=== PATIENT | female | born 1965 | race Caucasian/White ===

== ENCOUNTER → 2018-01-21 16:04 | Outpatient (CLI) | payer OTHER, SELFPAY ==
[2018-01-21 17:19] LABS: Estradiol 23.2 pg/mL; Follicle Stimulating Hormone 66.5 mIU/mL
== END ==
PROVIDERS: Family Provider Family Medicine; PCP Family Medicine; Visit Provider Obstetrics & Gynecology
DX: Z12.31 Encounter for screening mammogram for malignant neoplasm of breast (principal)
CPT/HCPCS: 82670; 83001

== ENCOUNTER → 2018-01-21 22:29 | Outpatient (CLI) | payer OTHER, SELFPAY ==
[2018-01-24 12:53] LABS: HPV APTIMA, High Risk Positive (Negative)
== END ==
PROVIDERS: Visit Provider Obstetrics & Gynecology
DX: Z01.411 Encounter for gynecological examination (general) (routine) with abnormal findings (principal)
CPT/HCPCS: 88175; G0145

== ENCOUNTER → 2018-05-22 07:56 | Outpatient (CLI) | payer OTHER, SELFPAY ==
[2018-05-22 10:40] LABS: ALB/GLOB Ratio 1.3 RATIO (0.9-2.4); AST(SGOT) 16 U/L (15-37); Alanine Aminotransfer ALT/SGPT 23 U/L (13-56); Alkaline Phosphatase 80 U/L (45-117); Anion Gap 8 (5-15); BUN 8 mg/dL (7-18); BUN/Creat Ratio 12.2 RATIO (10-20); Calcium,Total 8.8 mg/dL (8.5-10.1); Chloride 108 mmol/L (98-107); Cholesterol 163 mg/dL (200); Creatinine, Serum 0.66 mg/dL (0.55-1.02); EST Glomerular Filtration Rate 101 mL/min (>60); Est Glom Filt Rate - Afr Amer 122 mL/min (>60); Glucose 96 mg/dL (74-106); High Density Lipoprotein 48 mg/dL; Potassium 4.3 mmol/L (3.5-5.1); Sodium Level 144 mmol/L (136-145); Triglycerides 59 mg/dL; Very Low Density Lipoprotein 12 mg/dL (5-40)
== END ==
PROVIDERS: Family Provider Family Medicine; PCP Family Medicine; Visit Provider Internal Medicine Endocrinology, Diabetes & Metabolism
DX: E03.8 Other specified hypothyroidism (principal); E78.00 Pure hypercholesterolemia, unspecified
CPT/HCPCS: 36415; 80053; 80061; 84443

== ENCOUNTER → 2019-01-07 16:15 | Outpatient (CLI) | payer OTHER, SELFPAY ==
[2018-01-21 15:01] VITALS: BMI 27.6
[2019-01-07 18:03] LABS: ALB/GLOB Ratio 1.5 RATIO (0.9-2.4); AST(SGOT) 14 U/L (15-37); Alanine Aminotransfer ALT/SGPT 23 U/L (13-56); Albumin, Serum 4.4 g/dL (3.2-5.0); Alkaline Phosphatase 73 U/L (45-117); Anion Gap 10 (5-15); BUN 10 mg/dL (7-18); BUN/Creat Ratio 13.7 RATIO (10-20); Calcium,Total 8.9 mg/dL (8.5-10.1); Chloride 106 mmol/L (98-107); Creatinine, Serum 0.73 mg/dL (0.55-1.02); EST Glomerular Filtration Rate 89 mL/min (>60); Est Glom Filt Rate - Afr Amer 107 mL/min (>60); Globulin 2.9 g/dL (2.2-4.2); Glucose 94 mg/dL (74-106); Potassium 4.2 mmol/L (3.5-5.1); Protein, Total 7.3 g/dL (6.4-8.2); Sodium Level 144 mmol/L (136-145); Thyroid Stim Hormone (TSH) 0.95 uIU/mL (0.358-3.74)
[2019-01-07 18:04] LABS: Vitamin D,25 Hydroxy 49.5 ng/mL (29.95-100.01)
== END ==
PROVIDERS: Family Provider Family Medicine; PCP Family Medicine; Referring Provider Internal Medicine Endocrinology, Diabetes & Metabolism; Visit Provider Internal Medicine Endocrinology, Diabetes & Metabolism
DX: E03.8 Other specified hypothyroidism (principal); E78.00 Pure hypercholesterolemia, unspecified
CPT/HCPCS: 36415; 80053; 82306; 84443

== ENCOUNTER → 2019-02-27 08:33 | Outpatient (CLI) | payer OTHER, SELFPAY ==
[2019-02-27 08:02] VITALS: BMI 27.6
[2019-02-27 09:23] LABS: Follicle Stimulating Hormone 84.6 mIU/mL
[2019-03-05 16:58] LABS: HPV APTIMA, High Risk Negative (Negative)
== END ==
PROVIDERS: Family Provider Family Medicine; PCP Family Medicine; Referring Provider Obstetrics & Gynecology; Visit Provider Obstetrics & Gynecology
DX: Z12.4 Encounter for screening for malignant neoplasm of cervix (principal); Z78.0 Asymptomatic menopausal state
CPT/HCPCS: 36415; 82670; 83001; 87624; 88175; G0145

== ENCOUNTER → 2019-04-08 | Outpatient (CLI) | payer OTHER, SELFPAY ==
[2019-02-27 08:02] VITALS: BMI 27.6
--- NOTE | 2019-04-08 07:39 | BI_ITS ---
MAMMOGRAPHY - BILATERAL SCREENING REASON FOR EXAM: Female, 53 years old. Routine annual screening examination. PERTINENT HISTORY: Aunt with breast cancer. TECHNIQUE: Digital bilateral breast rojas (3D mammographic acquisition) in the CC and MLO projections. 2-D mediolateral oblique (MLO) and craniocaudad (CC) views of both breasts were obtained. CAD: Full Field Digital Mammography with Computer Added Detection was performed. COMPARISON: Comparison is made with prior study dated January 11, 2016 and January 19, 2015. FINDINGS: Breast Composition: The breasts are heterogeneously dense, which may obscure small masses. There are no dominant masses or suspicious calcifications. No other significant abnormalities are identified. There has been no significant change since the prior study. BI/SCREENING MAMM (CAD), BILAT IMPRESSION: Stable bilateral screening mammogram. Yearly follow-up mammogram recommended. (A) ASSESSMENT CATEGORY: BIRADS Category 1: Negative. A letter regarding these results will be sent to the patient by the facility within 30 days. Approximately 10% of breast cancers are not detected by mammography. A normal mammogram should not delay biopsy of a clinically suspicious abnormality. [id number] Electronically Signed: Handy Gonzalez, at 13:36 EDT , Service support ,
== END | disposition home or self-care (01) ==
LOC: OPBI 07:36
PROVIDERS: Family Provider Family Medicine; PCP Family Medicine; Referring Provider Obstetrics & Gynecology; Visit Provider Obstetrics & Gynecology
DX: Z12.31 Encounter for screening mammogram for malignant neoplasm of breast (principal)
CPT/HCPCS: 77063; 77067

== ENCOUNTER → 2019-09-18 13:16 | Outpatient (CLI) | payer OTHER, SELFPAY ==
[2019-04-08 08:17] VITALS: BMI 29.2
[2019-09-18 15:10] LABS: Vitamin D,25 Hydroxy 53.3 ng/mL (29.95-100.01)
[2019-09-18 15:11] LABS: ALB/GLOB Ratio 1.4 RATIO (0.9-2.4); AST(SGOT) 26 U/L (15-37); Alanine Aminotransfer ALT/SGPT 56 U/L (13-56); Albumin, Serum 4.3 g/dL (3.2-5.0); Alkaline Phosphatase 78 U/L (45-117); Anion Gap 6 (5-15); BUN 13 mg/dL (7-18); BUN/Creat Ratio 20.9 RATIO (10-20); Calcium,Total 9.5 mg/dL (8.5-10.1); Chloride 106 mmol/L (98-107); Creatinine, Serum 0.62 mg/dL (0.55-1.02); EST Glomerular Filtration Rate 107 mL/min (>60); Est Glom Filt Rate - Afr Amer 129 mL/min (>60); Globulin 3.1 g/dL (2.2-4.2); Glucose 75 mg/dL (74-106); Protein, Total 7.4 g/dL (6.4-8.2); Sodium Level 142 mmol/L (136-145); Thyroid Stim Hormone (TSH) 0.17 uIU/mL (0.358-3.74)
== END ==
PROVIDERS: Family Provider Family Medicine; PCP Family Medicine; Referring Provider Internal Medicine Endocrinology, Diabetes & Metabolism; Visit Provider Internal Medicine Endocrinology, Diabetes & Metabolism
DX: E03.8 Other specified hypothyroidism (principal); E55.9 Vitamin D deficiency, unspecified
CPT/HCPCS: 36415; 80053; 82306; 84443

== ENCOUNTER → 2019-12-05 07:43 | Outpatient (CLI) | payer OTHER, SELFPAY ==
[2019-04-08 08:17] VITALS: BMI 29.2
[2019-12-05 10:43] LABS: ALB/GLOB Ratio 1.3 RATIO (0.9-2.4); AST(SGOT) 30 U/L (15-37); Alanine Aminotransfer ALT/SGPT 76 U/L (13-56); Albumin, Serum 4.1 g/dL (3.2-5.0); Alkaline Phosphatase 77 U/L (45-117); Anion Gap 3 (5-15); BUN 12 mg/dL (7-18); Calcium,Total 9.6 mg/dL (8.5-10.1); Chloride 107 mmol/L (98-107); Cholesterol 159 mg/dL (200); Creatinine, Serum 0.75 mg/dL (0.55-1.02); EST Glomerular Filtration Rate 86 mL/min (>60); Est Glom Filt Rate - Afr Amer 104 mL/min (>60); Free T3 3.8 pg/mL (2.18-3.98); Globulin 3.1 g/dL (2.2-4.2); Glucose 103 mg/dL (74-106); High Density Lipoprotein 46 mg/dL; Potassium 4.5 mmol/L (3.5-5.1); Protein, Total 7.2 g/dL (6.4-8.2); Sodium Level 142 mmol/L (136-145); T4 Free Direct 1.26 ng/dL (0.76-1.46); Thyroid Stim Hormone (TSH) 0.12 uIU/mL (0.358-3.74); Triglycerides 63 mg/dL; Very Low Density Lipoprotein 13 mg/dL (5-40)
== END ==
LOC: MTLAB 07:46
PROVIDERS: PCP Family Medicine; Referring Provider Internal Medicine Endocrinology, Diabetes & Metabolism; Visit Provider Internal Medicine Endocrinology, Diabetes & Metabolism
DX: E03.8 Other specified hypothyroidism (principal); E78.00 Pure hypercholesterolemia, unspecified
CPT/HCPCS: 36415; 80053; 80061; 84439; 84443; 84481

== ENCOUNTER → 2020-01-15 07:26 | Outpatient (CLI) | payer OTHER, SELFPAY ==
[2019-04-08 08:17] VITALS: BMI 29.2
[2020-01-15 10:26] LABS: Insulin 6.7 mU/L (2.6-37.6)
[2020-01-15 10:29] LABS: ALB/GLOB Ratio 1.3 RATIO (0.9-2.4); AST(SGOT) 26 U/L (15-37); Alanine Aminotransfer ALT/SGPT 56 U/L (13-56); Albumin, Serum 4.1 g/dL (3.2-5.0); Alkaline Phosphatase 67 U/L (45-117); Anion Gap 3 (5-15); BUN 13 mg/dL (7-18); BUN/Creat Ratio 19.6 RATIO (10-20); Calcium,Total 9.7 mg/dL (8.5-10.1); Chloride 107 mmol/L (98-107); Creatinine, Serum 0.66 mg/dL (0.55-1.02); EST Glomerular Filtration Rate 99 mL/min (>60); Est Glom Filt Rate - Afr Amer 119 mL/min (>60); Free T3 4.5 pg/mL (2.18-3.98); Globulin 3.2 g/dL (2.2-4.2); Glucose 95 mg/dL (74-106); Potassium 4.1 mmol/L (3.5-5.1); Protein, Total 7.3 g/dL (6.4-8.2); Sodium Level 142 mmol/L (136-145); T4 Free Direct 1.26 ng/dL (0.76-1.46); Thyroid Stim Hormone (TSH) 0.08 uIU/mL (0.358-3.74)
== END ==
PROVIDERS: PCP Family Medicine; Referring Provider Nurse Practitioner Adult Health; Visit Provider Nurse Practitioner Adult Health
DX: E03.8 Other specified hypothyroidism (principal)
CPT/HCPCS: 36415; 80053; 83525; 84439; 84443; 84481

== ENCOUNTER 2020-04-17 22:32 | Emergency (ER) | payer OTHER, SELFPAY ==
[2019-04-08 08:17] VITALS: BMI 29.2
[2020-04-17 22:32] VITALS: BP 132/75; PULSE 91; RESP 15; TEMP 36.5; O2SAT 95; BMI 30.4
--- NOTE | 2020-04-17 23:54 | ED.VIS.GEN ---
History of Present Illness Chief Complaint: Ear Problem Informant: Patient Onset: Today Narrative: She states a bug flew into her ear. She tried to wash it out with some hydrogen peroxide but is still present. She has not felt it moving now. Past Medical History - Allergies and Home Meds Allergies/Adverse Reactions: Allergies ENVIRONMENTAL Allergy (Mild, Uncoded 04/17/20 22:45) SNEEZE, ITCHY EYES, RUNNY NOSE Primary Care Physician: Mandeep Segura MD [Primary Care Provider] - Surgical History: no surgical history Smoking Status: Former smoker Review of Systems General: Denies: Chills, Fever, Sweats Eyes: Denies: Visual changes - bilaterally, Diplopia ENT: Reports: Left ear pain. Denies: Rhinorrhea, Sore throat Cardiovascular: Denies: Chest pain, Palpitations Respiratory: Denies: Dyspnea, Cough, Dyspnea on exertion Gastrointestinal: Denies: Abdominal pain, Nausea, Vomiting, Diarrhea, Melena, Hematochezia Genitourinary: Denies: Dysuria, Hematuria, Frequency Musculoskeletal: Denies: Back pain, Extremity Pain Skin: Denies: Rash, Wounds Neurological: Denies: Headache, Weakness, Numbness Physical Exam Vital Signs/Narrative: Vital Signs Temp Pulse Resp BP Pulse Ox 04/17/20 22:32 97.7 F L 91 15 132/75 H 95 Inital Vital Signs reviewed: Yes General: Well nourished, Well developed, No Acute Distress Head: Normocephalic, Atraumatic Eyes: Perrl, EOMI ENT: Moist mucous membranes, No rhinorrhea, - - There is a apparently bug next to the left tympanic membrane. Neck: Supple, Nontender Cardiovascular: Regular rate, Regular rhythm, No murmurs Respiratory: No distress, CTA bilaterally, Chest nontender Abdomen: Soft, Nontender, Nondistended, Normal bowel sounds Back: Nontender, Normal Inspection Extremities: Nontender, No edema Skin: Normal color, No rash Neurological: Alert, Oriented x3, Cranial nerves II-XII grossly intact, Normal Strength, Normal Sensation Psychological: Normal affect, Normal Mood Diagnostic/Tx/Re-eval - Medical Decision Making Warm water irrigation resulted in the bug coming close to the opening of the ear canal. Alligator forceps were used to grab the bug. Remaining next to the tympanic membrane is 1 leg. After couple more flushes the leg came out. There is irritation of the tympanic membrane and ear canal but no overt infection. Return if worsening or concerns ED Disposition - Plan for ED Patient: Disposition: Home or Assisted Living Diagnosis: Ear foreign body Instructions: ED EAR CANAL Foreign Body Referrals: Mandeep Segura MD [Primary Care Provider] - As Needed
[2020-04-18 00:11] VITALS: RESP 14
== END 2020-04-18 00:11 | disposition home or self-care (01) ==
LOC: ED 04-18 00:09
PROVIDERS: Emergency Provider Emergency Medicine; PCP Family Medicine
DX: T16.2XXA Foreign body in left ear, initial encounter (principal); X58.XXXA Exposure to other specified factors, initial encounter; Y93.9 Activity, unspecified; Y92.9 Unspecified place or not applicable; Z87.891 Personal history of nicotine dependence
CPT/HCPCS: 99282

== ENCOUNTER → 2020-05-06 08:22 | Outpatient (CLI) | payer OTHER, SELFPAY ==
[2019-04-08 08:17] VITALS: BMI 29.2
[2020-04-17 22:32] VITALS: BMI 30.4
--- NOTE | 2020-05-06 08:23 | BI_ITS ---
MAMMOGRAPHY - BILATERAL SCREENING 3-D TOMOSYNTHESIS REASON FOR EXAM: Female, 54 years old. Routine screening PERTINENT HISTORY: BILAT SCREENING - FAM HX OF MATERNAL AUNT @ AGE 80''S - NO PREV SURG''S. TECHNIQUE: 2-D mammograms and 3-D Tomosynthesis of the breast (s) were performed. CAD was performed. COMPARISON: 04/08/2019 FINDINGS: The breast composition is heterogeneously dense that can obscure small breast masses. Scattered benign calcifications are seen. No dense spiculated masses or suspicious microcalcifications are identified. No architectural distortion is identified. There is no skin thickening or retraction. There has been no significant change since the prior study. BI/SCREEN MAMM (CAD) W/SRIKANTH BILAT IMPRESSION: No mammographic signs of malignancy. Routine yearly mammograms recommended. ASSESSMENT CATEGORY: BIRADS Category 2: Benign. A letter regarding these results will be sent to the patient by the facility within 30 days. FOLLOW UP RECOMMENDATION: Yearly follow up mammogram recommended. (A) Approximately 10% of breast cancers are not detected by mammography. A normal mammogram should not delay biopsy of a clinically suspicious abnormality. Electronically Signed: Pelon Daley MD at 10:19 EDT , Service support ,
[2020-05-15 17:35] LABS: HPV APTIMA, High Risk Negative (Negative)
== END ==
PROVIDERS: PCP Family Medicine; Referring Provider Obstetrics & Gynecology; Visit Provider Obstetrics & Gynecology
DX: R87.810 Cervical high risk human papillomavirus (HPV) DNA test positive (principal); Z12.31 Encounter for screening mammogram for malignant neoplasm of breast
CPT/HCPCS: 77063; 77067; 87624; 88175; G0145

== ENCOUNTER → 2020-05-26 08:10 | Outpatient (CLI) | payer OTHER, SELFPAY ==
[2020-05-06 09:01] VITALS: BMI 30.4
[2020-05-26 11:09] LABS: Insulin 7.1 mU/L (2.6-37.6)
[2020-05-26 11:29] LABS: Albumin, Serum 3.9 g/dL (3.2-5.0); BUN 10 mg/dL (7-18); BUN/Creat Ratio 14.9 RATIO (10-20); Creatinine, Serum 0.67 mg/dL (0.55-1.02); EST Glomerular Filtration Rate 98 mL/min (>60); Est Glom Filt Rate - Afr Amer 118 mL/min (>60); Glucose 101 mg/dL (74-106); Protein, Total 6.9 g/dL (6.4-8.2)
[2020-05-26 11:30] LABS: ALB/GLOB Ratio 1.3 RATIO (0.9-2.4); AST(SGOT) 22 U/L (15-37); Alanine Aminotransfer ALT/SGPT 43 U/L (13-56); Alkaline Phosphatase 79 U/L (45-117); Anion Gap 5 (5-15); Calcium,Total 8.8 mg/dL (8.5-10.1); Chloride 106 mmol/L (98-107); Free T3 2.8 pg/mL (2.18-3.98); Sodium Level 141 mmol/L (136-145); T4 Free Direct 1.13 ng/dL (0.76-1.46); Thyroid Stim Hormone (TSH) 0.64 uIU/mL (0.358-3.74)
== END ==
PROVIDERS: PCP Family Medicine; Referring Provider Internal Medicine Endocrinology, Diabetes & Metabolism; Visit Provider Internal Medicine Endocrinology, Diabetes & Metabolism
DX: E03.8 Other specified hypothyroidism (principal)
CPT/HCPCS: 36415; 80053; 83525; 84439; 84443; 84481

== ENCOUNTER → 2020-11-17 07:36 | Outpatient (CLI) | payer OTHER, SELFPAY ==
[2020-05-06 09:01] VITALS: BMI 30.4
[2020-11-17 10:54] LABS: ALB/GLOB Ratio 1.2 RATIO (0.9-2.4); AST(SGOT) 31 U/L (15-37); Alanine Aminotransfer ALT/SGPT 68 U/L (13-56); Alkaline Phosphatase 68 U/L (45-117); Anion Gap 3 (5-15); BUN 12 mg/dL (7-18); BUN/Creat Ratio 15.9 RATIO (10-20); Calcium,Total 9.2 mg/dL (8.5-10.1); Chloride 109 mmol/L (98-107); Creatinine, Serum 0.76 mg/dL (0.55-1.02); EST Glomerular Filtration Rate 85 mL/min (>60); Est Glom Filt Rate - Afr Amer 103 mL/min (>60); Globulin 3.2 g/dL (2.2-4.2); Glucose 107 mg/dL (74-106); Potassium 4.2 mmol/L (3.5-5.1); Protein, Total 7.2 g/dL (6.4-8.2); Sodium Level 142 mmol/L (136-145); Thyroid Stim Hormone (TSH) 0.29 uIU/mL (0.358-3.74)
== END ==
PROVIDERS: PCP Family Medicine; Referring Provider Internal Medicine Endocrinology, Diabetes & Metabolism; Visit Provider Internal Medicine Endocrinology, Diabetes & Metabolism
DX: E03.8 Other specified hypothyroidism (principal); E83.42 Hypomagnesemia
CPT/HCPCS: 36415; 80053; 83735; 84443

== ENCOUNTER → 2021-01-31 08:02 | Outpatient (CLI) | payer OTHER, SELFPAY ==
[2020-05-06 09:01] VITALS: BMI 30.4
[2021-01-31 11:06] LABS: Thyroid Stim Hormone (TSH) 0.37 uIU/mL (0.358-3.74)
== END ==
PROVIDERS: PCP Family Medicine; Referring Provider Nurse Practitioner Adult Health; Visit Provider Nurse Practitioner Adult Health
DX: E03.8 Other specified hypothyroidism (principal)
CPT/HCPCS: 36415; 84443

== ENCOUNTER → 2021-05-18 07:57 | Outpatient (CLI) | payer OTHER, SELFPAY ==
[2020-05-06 09:01] VITALS: BMI 30.4
[2021-05-12 09:47] VITALS: BMI 30.4
--- NOTE | 2021-05-18 08:00 | BI_ITS ---
MAMMOGRAPHY - BILATERAL SCREENING REASON FOR EXAM: Female, 55 years old. Routine annual screening examination. PERTINENT HISTORY: Aunt with breast cancer. TECHNIQUE: Digital bilateral breast srikanth (3D mammographic acquisition) in the CC and MLO projections. 2-D mediolateral oblique (MLO) and craniocaudad (CC) views of both breasts were obtained. CAD: Full Field Digital Mammography with Computer Added Detection was performed. COMPARISON: Comparison is made with prior study dated 05/06/2020 and 04/08/2019. FINDINGS: Breast Composition: The breasts are heterogeneously dense, which may obscure small masses. There are no dominant masses or suspicious calcifications. No other significant abnormalities are identified. There has been no significant change since the prior study. BI/SCRN MAMM (CAD)W/SRIKANTH BILAT IMPRESSION: Stable bilateral screening mammogram. Yearly follow-up mammogram recommended. (A) ASSESSMENT CATEGORY: BIRADS Category 1: Negative. A letter regarding these results will be sent to the patient by the facility within 30 days. Approximately 10% of breast cancers are not detected by mammography. A normal mammogram should not delay biopsy of a clinically suspicious abnormality. [id number] Electronically Signed: Handy Gonzalez MD at 9:08 EDT , Service support ,
== END ==
PROVIDERS: PCP Family Medicine; Referring Provider Obstetrics & Gynecology; Visit Provider Obstetrics & Gynecology
DX: Z12.31 Encounter for screening mammogram for malignant neoplasm of breast (principal); Z80.3 Family history of malignant neoplasm of breast
CPT/HCPCS: 77063; 77067

== ENCOUNTER → 2021-06-06 11:07 | Outpatient (CLI) | payer OTHER, SELFPAY ==
[2021-05-12 09:47] VITALS: BMI 30.4
[2021-06-06 12:59] LABS: Vitamin D,25 Hydroxy 89.6 ng/mL
[2021-06-06 13:06] LABS: ALB/GLOB Ratio 1.2 RATIO (0.9-2.4); AST(SGOT) 33 U/L (15-37); Alanine Aminotransfer ALT/SGPT 56 U/L (13-56); Alkaline Phosphatase 73 U/L (45-117); Anion Gap 6 (5-15); BUN 10 mg/dL (7-18); BUN/Creat Ratio 13.9 RATIO (10-20); Calcium,Total 9.2 mg/dL (8.5-10.1); Chloride 106 mmol/L (98-107); Creatinine, Serum 0.72 mg/dL (0.55-1.02); EST Glomerular Filtration Rate 89 mL/min (>60); Est Glom Filt Rate - Afr Amer 108 mL/min (>60); Globulin 3.4 g/dL (2.2-4.2); Glucose 108 mg/dL (74-106); Potassium 4.1 mmol/L (3.5-5.1); Protein, Total 7.4 g/dL (6.4-8.2); Sodium Level 142 mmol/L (136-145); Thyroid Stim Hormone (TSH) 0.55 uIU/mL (0.358-3.74)
== END ==
PROVIDERS: PCP Family Medicine; Referring Provider Internal Medicine Endocrinology, Diabetes & Metabolism; Visit Provider Internal Medicine Endocrinology, Diabetes & Metabolism
DX: E03.8 Other specified hypothyroidism (principal); E55.9 Vitamin D deficiency, unspecified
CPT/HCPCS: 36415; 80053; 82306; 84443

== ENCOUNTER → 2021-08-05 10:32 | Outpatient (CLI) | payer OTHER, SELFPAY ==
--- NOTE | 2021-08-05 10:35 | RAD_ITS ---
STUDY: X-RAY - CERVICAL SPINE REASON FOR EXAM: Female, 56 years old. NECK STIFFNESS TECHNIQUE: 7 view(s) of the cervical spine were obtained. COMPARISON: None FINDINGS: Normal anterior atlantoaxial articulation. Normal odontoid process. Normal cervical lordosis. No subluxation on the flexion or extension views to suggest instability. There is multi-level endplate spondylosis. There is multi-level degenerative disc disease with multilevel disc space narrowing. Normal visualized intervertebral neuroforamina. The soft tissue structures are unremarkable. RAD/Cerv Spine Obl/Flex/Ext Comp IMPRESSION: Mild degenerative disc disease of the lower cervical spine. No instability. Electronically Signed: Lemuel Ramirez MD at 17:15 EDT Tel , Service support ,
[2021-08-05 12:13] LABS: Erythrocyte Sedimentation Rate < 1 mm/hr (0-30)
[2021-08-05 12:16] LABS: Absolute Lymphocyte Count 1.29 X10^3/uL (0.83-4.51); Absolute Neutrophil Count 3.2 X10^3/uL (2.0-7.7); Basophil# 0.03 X10^3/uL; Basophil% 0.6 % (0-1); Eosinophil# 0.06 X10^3/uL; Eosinophils% 1.3 % (0-5); Hematocrit 42.4 % (37-47); Hemoglobin 14.2 g/dL (12.0-15.0); Lymphocyte # 1.29 X10^3/ul (0.83-4.51); Lymphocyte % 26.9 % (19-41); Mean Corp Hgb Conc 33.5 g/dL (32-36); Mean Corpuscular Hgb 31.1 pg (27.0-32.0); Mean Corpuscular Volume 92.8 fL (81-99); Mean Platelet Vol. 10.5 fl (6.2-12.0); Monocyte# 0.25 X10^3/uL; Monocyte% 5.2 % (0-10); NRBC Flagged by Analyzer 0 % (0-5); Neutrophil # 3.15 X10^3/uL (2.7-7.7); Neutrophil % 65.8 % (47-70); Platelet Count 243 K/mm3 (150-450); RBC Distribution Width CV 11.9 % (11.6-14.6); Red Blood Count 4.57 M/mm3 (4.2-5.4); White Blood Count 4.8 K/mm3 (4.4-11.0)
[2021-08-05 12:17] LABS: Prothrombin Time (Protime)PT. 12.3 SECONDS (11.7-14.9)
[2021-08-05 12:18] LABS: Partial Thromboplast Time 27.4 Seconds (24.1-36.2)
[2021-08-05 12:42] LABS: Vitamin D,25 Hydroxy 94.5 ng/mL
[2021-08-05 13:01] LABS: ALB/GLOB Ratio 1.2 RATIO (0.9-2.4); AST(SGOT) 25 U/L (15-37); Alanine Aminotransfer ALT/SGPT 50 U/L (13-56); Albumin, Serum 4.3 g/dL (3.2-5.0); Alkaline Phosphatase 72 U/L (45-117); Anion Gap 4 (5-15); BUN 11 mg/dL (7-18); BUN/Creat Ratio 17.5 RATIO (10-20); CRP < 2.90 mg/L (0.0-3.0); Calcium,Total 9.4 mg/dL (8.5-10.1); Chloride 106 mmol/L (98-107); Creatinine, Serum 0.63 mg/dL (0.55-1.02); EST Glomerular Filtration Rate 105 mL/min (>60); Est Glom Filt Rate - Afr Amer 127 mL/min (>60); Globulin 3.7 g/dL (2.2-4.2); Glucose 86 mg/dL (74-106); Potassium 3.6 mmol/L (3.5-5.1); Sodium Level 139 mmol/L (136-145); Thyroid Stim Hormone (TSH) 0.62 uIU/mL (0.358-3.74)
[2021-08-05 16:05] LABS: Microalbumin,Random Urine 10.8 mg/L (NO RANGE EST.); Microalbumin:Creatinine Ratio 24.7 mg/g CRE (<30 mg/g CRE)
[2021-08-08 21:48] LABS: Anti-Nuclear Antibody Test Negative (.)
== END ==
PROVIDERS: PCP Family Medicine; Referring Provider Family Medicine; Visit Provider Family Medicine
DX: M25.50 Pain in unspecified joint (principal); M43.6 Torticollis; E03.9 Hypothyroidism, unspecified; R23.3 Spontaneous ecchymoses
CPT/HCPCS: 36415; 72052; 80053; 82043; 82306; 82570; 84443; 85025; 85610; 85652; 85730; 86038; 86140

== ENCOUNTER → 2021-08-12 15:23 | Outpatient (CLI) | payer OTHER, SELFPAY ==
[2021-08-12 15:30] LABS: Lyme Ab Screen Interpretation REF LAB
[2021-08-12 18:13] LABS: CRP, High Sensitivity Cardiac 2.54 mg/L
[2021-08-17 00:07] LABS: Complement C3 160 mg/dL (82-167)
[2021-08-17 14:30] LABS: CCP IgG Antibodies 7 units (0-19); Lyme Scn Total Ab w/Rflx <0.91 ISR (0.00-0.90)
== END ==
PROVIDERS: PCP Family Medicine; Referring Provider Family Medicine; Visit Provider Family Medicine
DX: R23.8 Other skin changes (principal)
CPT/HCPCS: 36415; 86141; 86160; 86200; 86618

== ENCOUNTER → 2021-08-16 | Outpatient (CLI) | payer OTHER, SELFPAY | END | disposition home or self-care (01) | LOC: LABSPEC 12:08 | PROVIDERS: PCP Family Medicine; Referring Provider Family Medicine; Visit Provider Family Medicine | DX: R23.8 Other skin changes (principal) | CPT/HCPCS: 87506 ==

== ENCOUNTER → 2021-09-06 07:34 | Outpatient (CLI) | payer OTHER, SELFPAY ==
--- NOTE | 2021-09-06 07:36 | US_ITS ---
STUDY: ABDOMINAL ULTRASOUND - LEFT UPPER QUADRANT REASON FOR EXAM: Female, 56 years old. Easy bruising. NT liver. Palpable finding consistent with enlar -- PER [facility]RN AT [facility] ONLY TECHNIQUE: Transabdominal ultrasound was performed with real-time and static duvall scale imaging. TECHNICAL QUALITY: Adequate. COMPARISON: None. FINDINGS: Spleen: Normal size of the spleen. The spleen measures 10.4 cm x 4.1 cm x 4.8 cm. Calcified splenic granulomas. Left Kidney: Normal size of the left kidney. The left kidney measures 11 cm x 5.1 cm x 5.2 cm. Normal renal cortex. The left cortex measures 1.0 cm. There is no demonstrated renal mass or cyst. Minimally dilated left renal calyces. US/Spleen IMPRESSION: The spleen is not enlarged. Calcified splenic granulomas. Electronically Signed: Handy Gonzalez MD at 15:27 EDT , Service support ,
== END ==
PROVIDERS: PCP Family Medicine; Referring Provider Family Medicine; Visit Provider Family Medicine
DX: D73.89 Other diseases of spleen (principal); R23.3 Spontaneous ecchymoses
CPT/HCPCS: 76705

== ENCOUNTER 2021-12-06 15:28 | Outpatient (CLI) | payer BC, SELFPAY ==
[2021-12-06 18:05] LABS: ALB/GLOB Ratio 1.2 RATIO (0.9-2.4); AST(SGOT) 27 U/L (15-37); Alanine Aminotransfer ALT/SGPT 55 U/L (13-56); Albumin, Serum 4.1 g/dL (3.2-5.0); Alkaline Phosphatase 65 U/L (45-117); Anion Gap 4 (5-15); BUN 12 mg/dL (7-18); BUN/Creat Ratio 19.3 RATIO (10-20); Calcium,Total 9.3 mg/dL (8.5-10.1); Chloride 105 mmol/L (98-107); Creatinine, Serum 0.62 mg/dL (0.55-1.02); EST Glomerular Filtration Rate 106 mL/min (>60); Est Glom Filt Rate - Afr Amer 128 mL/min (>60); Free T3 2.9 pg/mL (2.18-3.98); Globulin 3.3 g/dL (2.2-4.2); Glucose 109 mg/dL (74-106); Protein, Total 7.4 g/dL (6.4-8.2); Sodium Level 139 mmol/L (136-145); T4 Free Direct 1.12 ng/dL (0.76-1.46); Thyroid Stim Hormone (TSH) 0.25 uIU/mL (0.358-3.74)
== END 2021-12-06 23:59 | disposition short-term general hospital (02) ==
LOC: MTLAB 15:31
PROVIDERS: PCP Family Medicine; Referring Provider Internal Medicine Endocrinology, Diabetes & Metabolism; Visit Provider Internal Medicine Endocrinology, Diabetes & Metabolism
DX: E03.8 Other specified hypothyroidism (principal)
CPT/HCPCS: 36415; 80053; 84439; 84443; 84481

== ENCOUNTER → 2022-07-25 | Outpatient (CLI) | payer BC, SELFPAY ==
[2022-07-25 10:19] LABS: ALB/GLOB Ratio 1.2 RATIO (0.9-2.4); AST(SGOT) 19 U/L (15-37); Alanine Aminotransfer ALT/SGPT 40 U/L (13-56); Albumin, Serum 3.7 g/dL (3.2-5.0); Alkaline Phosphatase 57 U/L (45-117); Anion Gap 8 (5-15); BUN 10 mg/dL (7-18); BUN/Creat Ratio 14.6 RATIO (10-20); Calcium,Total 9.2 mg/dL (8.5-10.1); Chloride 107 mmol/L (98-107); Cholesterol 151 mg/dL (200); Creatinine, Serum 0.68 mg/dL (0.55-1.02); EST Glomerular Filtration Rate 95 mL/min (>60); Est Glom Filt Rate - Afr Amer 114 mL/min (>60); Free T3 3.2 pg/mL (2.18-3.98); Globulin 3.2 g/dL (2.2-4.2); Glucose 111 mg/dL (74-106); High Density Lipoprotein 58 mg/dL; Potassium 3.6 mmol/L (3.5-5.1); Protein, Total 6.9 g/dL (6.4-8.2); Sodium Level 142 mmol/L (136-145); T4 Free Direct 1.19 ng/dL (0.76-1.46); Thyroid Stim Hormone (TSH) 0.46 uIU/mL (0.358-3.74); Triglycerides 61 mg/dL; Very Low Density Lipoprotein 12 mg/dL (5-40)
== END | disposition home or self-care (01) ==
LOC: MTLAB 07:20
PROVIDERS: PCP Family Medicine; Referring Provider Internal Medicine Endocrinology, Diabetes & Metabolism; Visit Provider Internal Medicine Endocrinology, Diabetes & Metabolism
DX: E03.8 Other specified hypothyroidism (principal); E78.2 Mixed hyperlipidemia; E55.9 Vitamin D deficiency, unspecified
CPT/HCPCS: 36415; 80053; 80061; 84439; 84443; 84481

== ENCOUNTER → 2023-02-23 | Outpatient (CLI) | payer BC, SELFPAY ==
[2023-02-23 11:37] LABS: ALB/GLOB Ratio 1.3 RATIO (0.9-2.4); AST(SGOT) 23 U/L (15-37); Alanine Aminotransfer ALT/SGPT 46 U/L (13-56); Albumin, Serum 3.8 g/dL (3.2-5.0); Alkaline Phosphatase 61 U/L (45-117); Anion Gap 4 (5-15); BUN 11 mg/dL (7-18); BUN/Creat Ratio 13.5 RATIO (10-20); Calcium,Total 9.1 mg/dL (8.5-10.1); Chloride 110 mmol/L (98-107); Creatinine, Serum 0.81 mg/dL (0.55-1.02); EST Glomerular Filtration Rate 77 mL/min (>60); Est Glom Filt Rate - Afr Amer 93 mL/min (>60); Glucose 127 mg/dL (74-106); Potassium 4.3 mmol/L (3.5-5.1); Protein, Total 6.8 g/dL (6.4-8.2); Sodium Level 141 mmol/L (136-145); Thyroid Stim Hormone (TSH) 1.32 uIU/mL (0.358-3.74)
== END | disposition home or self-care (01) ==
PROVIDERS: PCP Family Medicine; Referring Provider Internal Medicine Endocrinology, Diabetes & Metabolism; Visit Provider Internal Medicine Endocrinology, Diabetes & Metabolism
DX: E03.8 Other specified hypothyroidism (principal)
CPT/HCPCS: 36415; 80053; 84443

== ENCOUNTER → 2023-05-25 | Outpatient (CLI) | payer BC, SELFPAY ==
--- NOTE | 2023-05-25 09:45 | RAD_ITS ---
STUDY: X-RAY - CERVICAL SPINE REASON FOR EXAM: Female, 57 years old. CERVICAL SPRAIN TECHNIQUE: 6 view(s) of the cervical spine were obtained including oblique views.. COMPARISON: None FINDINGS: Normal anterior atlantoaxial articulation. Normal odontoid process. There is straightening of the normal cervical lordosis. Anterior spondylosis at the C5-C6 and C6-C7 levels. This space narrowing at the C5-C6 and C6-C7 levels. Normal visualized intervertebral neuroforamina. The soft tissue structures are unremarkable. RAD/Cerv Spine 4 or 5 Views IMPRESSION: Spondylosis and disc space narrowing at the C5-C6 and C6-C7 levels. Electronically Signed: Handy Gonzalez MD at 14:34 EDT ,
== END | disposition home or self-care (01) ==
LOC: RAD 09:32
PROVIDERS: PCP Family Medicine; Referring Provider Chiropractor; Visit Provider Chiropractor
DX: S13.4XXA Sprain of ligaments of cervical spine, initial encounter (principal); X58.XXXA Exposure to other specified factors, initial encounter
CPT/HCPCS: 72050

== ENCOUNTER → 2023-08-31 | Outpatient (CLI) | payer BC, SELFPAY ==
--- NOTE | 2023-08-31 07:33 | BI_ITS ---
MAMMOGRAPHY - BILATERAL SCREENING REASON FOR EXAM: Female, 58 years old. Routine annual screening examination. PERTINENT HISTORY: Aunt with breast cancer. TECHNIQUE: Digital bilateral breast srikanth (3D mammographic acquisition) in the CC and MLO projections. 2-D mediolateral oblique (MLO) and craniocaudad (CC) views of both breasts were obtained. CAD: Full Field Digital Mammography with Computer Added Detection was performed. COMPARISON: Comparison is made with prior study dated May 18, 2021 and May 06, 2020. FINDINGS: Breast Composition: The breasts are heterogeneously dense, which may obscure small masses. There are no dominant masses or suspicious calcifications. Stable benign-appearing bilateral axillary lymph nodes. No other significant abnormalities are identified. There has been no significant change since the prior study. BI/SCRN MAMM (CAD)W/SRIKANTH BILAT IMPRESSION: Stable bilateral screening mammogram. Yearly follow-up mammogram recommended. (A) ASSESSMENT CATEGORY: BIRADS Category 2: Benign. A letter regarding these results will be sent to the patient by the facility within 30 days. Approximately 10% of breast cancers are not detected by mammography. A normal mammogram should not delay biopsy of a clinically suspicious abnormality. [id number] Electronically Signed: Handy Gonzalez MD at 10:41 EDT ,
== END | disposition home or self-care (01) ==
LOC: OPBI 07:32
PROVIDERS: PCP Family Medicine; Referring Provider Obstetrics & Gynecology; Visit Provider Obstetrics & Gynecology
DX: Z12.31 Encounter for screening mammogram for malignant neoplasm of breast (principal)
CPT/HCPCS: 77063; 77067

== ENCOUNTER → 2023-09-13 | Outpatient (CLI) | payer BC, SELFPAY ==
[2023-09-19 08:11] LABS: HPV APTIMA, High Risk Negative (Negative)
== END | disposition home or self-care (01) ==
LOC: LABSPEC 11:37
PROVIDERS: PCP Family Medicine; Visit Provider Advanced Practice Midwife
DX: Z12.4 Encounter for screening for malignant neoplasm of cervix (principal)
CPT/HCPCS: 87624; 88175; G0145

== ENCOUNTER → 2023-10-15 | Outpatient (CLI) | payer BC, SELFPAY ==
[2023-10-15 11:45] LABS: Vitamin D,25 Hydroxy 82.8 ng/mL
[2023-10-15 12:15] LABS: ALB/GLOB Ratio 1.3 RATIO (0.9-2.4); AST(SGOT) 26 U/L (15-37); Alanine Aminotransfer ALT/SGPT 47 U/L (13-56); Albumin, Serum 3.7 g/dL (3.2-5.0); Alkaline Phosphatase 56 U/L (45-117); Anion Gap 6 (5-15); BUN 6 mg/dL (7-18); BUN/Creat Ratio 9.1 RATIO (10-20); Calcium,Total 9.1 mg/dL (8.5-10.1); Chloride 110 mmol/L (98-107); Cholesterol 147 mg/dL (200); Creatinine, Serum 0.66 mg/dL (0.55-1.02); EST Glomerular Filtration Rate 99 mL/min (>60); Est Glom Filt Rate - Afr Amer 119 mL/min (>60); Globulin 2.8 g/dL (2.2-4.2); Glucose 109 mg/dL (74-106); High Density Lipoprotein 52 mg/dL; Magnesium 2.2 mg/dL (1.6-2.6); Protein, Total 6.5 g/dL (6.4-8.2); Sodium Level 143 mmol/L (136-145); Thyroid Stim Hormone (TSH) 0.25 uIU/mL (0.358-3.74); Triglycerides 126 mg/dL; Very Low Density Lipoprotein 25 mg/dL (5-40)
== END | disposition home or self-care (01) ==
LOC: MTLAB 08:04
PROVIDERS: PCP Family Medicine; Referring Provider Internal Medicine Endocrinology, Diabetes & Metabolism; Visit Provider Internal Medicine Endocrinology, Diabetes & Metabolism
DX: E03.9 Hypothyroidism, unspecified (principal); E78.2 Mixed hyperlipidemia; E55.9 Vitamin D deficiency, unspecified
CPT/HCPCS: 36415; 80053; 80061; 82306; 83735; 84443

== ENCOUNTER → 2023-11-07 | Outpatient (CLI) | payer BC, SELFPAY ==
[2023-11-07 16:43] LABS: Absolute Lymphocyte Count 1.73 X10^3/uL (0.83-4.51); Absolute Neutrophil Count 3.4 X10^3/uL (2.0-7.7); Basophil# 0.06 X10^3/uL; Basophil% 1.1 % (0-1); Eosinophil# 0.08 X10^3/uL; Eosinophils% 1.4 % (0-5); Hematocrit 39.3 % (37-47); Hemoglobin 13.2 g/dL (12.0-15.0); Lymphocyte # 1.73 X10^3/ul (0.83-4.51); Lymphocyte % 30.5 % (19-41); Mean Corp Hgb Conc 33.6 g/dL (32-36); Mean Corpuscular Hgb 30.6 pg (27.0-32.0); Mean Corpuscular Volume 91.2 fL (81-99); Mean Platelet Vol. 10.6 fl (6.2-12.0); Monocyte# 0.43 X10^3/uL; Monocyte% 7.6 % (0-10); NRBC Flagged by Analyzer 0 % (0-5); Neutrophil # 3.36 X10^3/uL (2.7-7.7); Platelet Count 222 K/mm3 (150-450); RBC Distribution Width SD 40.2 fl (35.1-43.9); Red Blood Count 4.31 M/mm3 (4.2-5.4); White Blood Count 5.7 K/mm3 (4.4-11.0)
== END | disposition home or self-care (01) ==
LOC: BIMLAB 15:08
PROVIDERS: PCP Internal Medicine; Referring Provider Internal Medicine; Visit Provider Internal Medicine
DX: Z00.00 Encounter for general adult medical examination without abnormal findings (principal)
CPT/HCPCS: 36415; 85025

== ENCOUNTER → 2024-04-15 | Outpatient (CLI) | payer BC, SELFPAY ==
[2024-04-15 12:38] LABS: Vitamin D,25 Hydroxy 82.6 ng/mL
[2024-04-15 12:51] LABS: PTHIN 58.6 pg/mL (18.4-80.1)
[2024-04-15 13:27] LABS: ALB/GLOB Ratio 1.3 RATIO (0.9-2.4); AST(SGOT) 40 U/L (15-37); Alanine Aminotransfer ALT/SGPT 65 U/L (13-56); Albumin, Serum 3.9 g/dL (3.2-5.0); Alkaline Phosphatase 55 U/L (45-117); Anion Gap 6 (5-15); BUN 14 mg/dL (7-18); BUN/Creat Ratio 19.8 RATIO (10-20); Calcium,Total 9.2 mg/dL (8.5-10.1); Chloride 110 mmol/L (98-107); Creatinine, Serum 0.71 mg/dL (0.55-1.02); EST Glomerular Filtration Rate 91 mL/min (>60); Est Glom Filt Rate - Afr Amer 110 mL/min (>60); Glucose 106 mg/dL (74-106); Potassium 4.2 mmol/L (3.5-5.1); Protein, Total 6.9 g/dL (6.4-8.2); Sodium Level 142 mmol/L (136-145)
[2024-04-16 09:15] LABS: Thyroid Stim Hormone (TSH) 1.44 uIU/mL (0.358-3.74)
== END | disposition home or self-care (01) ==
LOC: BIMLAB 09:44
PROVIDERS: PCP Internal Medicine; Referring Provider Internal Medicine; Visit Provider Internal Medicine
DX: E03.8 Other specified hypothyroidism (principal); M85.89 Other specified disorders of bone density and structure, multiple sites; E55.9 Vitamin D deficiency, unspecified
CPT/HCPCS: 36415; 80053; 82306; 83970; 84443

== ENCOUNTER → 2024-06-04 | Outpatient (CLI) | payer BC, SELFPAY ==
[2024-06-04 12:49] LABS: ALB/GLOB Ratio 1.3 RATIO (0.9-2.4); AST(SGOT) 33 U/L (15-37); Alanine Aminotransfer ALT/SGPT 55 U/L (13-56); Albumin, Serum 3.9 g/dL (3.2-5.0); Alkaline Phosphatase 51 U/L (45-117); Anion Gap 7 (5-15); BUN 7 mg/dL (7-18); BUN/Creat Ratio 10.3 RATIO (10-20); Calcium,Total 9.4 mg/dL (8.5-10.1); Chloride 107 mmol/L (98-107); Creatinine, Serum 0.68 mg/dL (0.55-1.02); EST Glomerular Filtration Rate 95 mL/min (>60); Est Glom Filt Rate - Afr Amer 115 mL/min (>60); Globulin 2.9 g/dL (2.2-4.2); Glucose 111 mg/dL (74-106); Potassium 3.9 mmol/L (3.5-5.1); Protein, Total 6.8 g/dL (6.4-8.2); Sodium Level 141 mmol/L (136-145)
== END | disposition home or self-care (01) ==
LOC: BIMLAB 08:57
PROVIDERS: PCP Internal Medicine; Referring Provider Internal Medicine; Visit Provider Internal Medicine
DX: M85.80 Other specified disorders of bone density and structure, unspecified site (principal)
CPT/HCPCS: 36415; 80053

== ENCOUNTER → 2024-09-02 | Outpatient (CLI) | payer BC, SELFPAY ==
--- NOTE | 2024-09-02 08:09 | BI_ITS ---
MAMMOGRAPHY - BILATERAL SCREENING REASON FOR EXAM: Female, 59 years old. Routine annual screening examination. PERTINENT HISTORY: Aunt with breast cancer. TECHNIQUE: Digital bilateral breast srikanth (3D mammographic acquisition) in the CC and MLO projections. 2-D mediolateral oblique (MLO) and craniocaudad (CC) views of both breasts were obtained. CAD: Full Field Digital Mammography with Computer Added Detection was performed. COMPARISON: Comparison is made with prior study August 31, 2023 and May 18, 2021. FINDINGS: Breast Composition: The breasts are heterogeneously dense, which may obscure small masses. There are no dominant masses or suspicious calcifications. Stable bilateral fat containing axillary lymph nodes. No other significant abnormalities are identified. There has been no significant change since the prior study. BI/SCRN MAMM (CAD)W/SRIKANTH BILAT IMPRESSION: Stable bilateral screening mammogram. Yearly follow-up mammogram recommended. (A) ASSESSMENT CATEGORY: BIRADS Category 2: Benign. A letter regarding these results will be sent to the patient by the facility within 30 days. Approximately 10% of breast cancers are not detected by mammography. A normal mammogram should not delay biopsy of a clinically suspicious abnormality. [id number] Electronically Signed: Handy Gonzalez MD at 8:52 EDT ,
== END | disposition home or self-care (01) ==
LOC: OPBI 08:09
PROVIDERS: PCP Internal Medicine; Referring Provider Obstetrics & Gynecology; Visit Provider Obstetrics & Gynecology
DX: Z12.31 Encounter for screening mammogram for malignant neoplasm of breast (principal)
CPT/HCPCS: 77063; 77067

== ENCOUNTER → 2024-10-06 | Outpatient (CLI) | payer BC, SELFPAY ==
[2024-10-06 12:31] LABS: PTHIN 25.8 pg/mL (18.4-80.1)
[2024-10-06 12:36] LABS: Vitamin D,25 Hydroxy 81.1 ng/mL
[2024-10-06 13:22] LABS: ALB/GLOB Ratio 1.4 RATIO (0.9-2.4); AST(SGOT) 32 U/L (15-37); Alanine Aminotransfer ALT/SGPT 51 U/L (13-56); Albumin, Serum 3.8 g/dL (3.2-5.0); Alkaline Phosphatase 53 U/L (45-117); Anion Gap 5 (5-15); BUN 11 mg/dL (7-18); BUN/Creat Ratio 15.4 RATIO (10-20); Calcium,Total 9.2 mg/dL (8.5-10.1); Chloride 110 mmol/L (98-107); Creatinine, Serum 0.71 mg/dL (0.55-1.02); EST Glomerular Filtration Rate 89 mL/min (>60); Est Glom Filt Rate - Afr Amer 108 mL/min (>60); Globulin 2.8 g/dL (2.2-4.2); Glucose 110 mg/dL (74-106); Potassium 4.2 mmol/L (3.5-5.1); Protein, Total 6.6 g/dL (6.4-8.2); Sodium Level 142 mmol/L (136-145)
== END | disposition home or self-care (01) ==
LOC: BIMLAB 08:05
PROVIDERS: PCP Internal Medicine; Referring Provider Internal Medicine Endocrinology, Diabetes & Metabolism; Visit Provider Internal Medicine Endocrinology, Diabetes & Metabolism
DX: E03.8 Other specified hypothyroidism (principal); E55.9 Vitamin D deficiency, unspecified; M85.89 Other specified disorders of bone density and structure, multiple sites
CPT/HCPCS: 36415; 80053; 82306; 83970; 84443

== ENCOUNTER → 2025-03-25 | Outpatient (CLI) | payer BC, SELFPAY ==
[2025-03-25 12:21] LABS: Absolute Lymphocyte Count 1.44 X10^3/uL (0.83-4.51); Absolute Neutrophil Count 2.5 X10^3/uL (2.0-7.7); Basophil# 0.03 X10^3/uL; Basophil% 0.7 % (0-1); Eosinophil# 0.09 X10^3/uL; Hematocrit 37.7 % (37-47); Hemoglobin 13.2 g/dL (12.0-15.0); Lymphocyte # 1.44 X10^3/ul (0.83-4.51); Lymphocyte % 32.7 % (19-41); Mean Corpuscular Hgb 31.5 pg (27.0-32.0); Mean Platelet Vol. 11.1 fl (6.2-12.0); Monocyte# 0.31 X10^3/uL; NRBC Flagged by Analyzer 0 % (0-5); Neutrophil # 2.52 X10^3/uL (2.7-7.7); Neutrophil % 57.4 % (47-70); Platelet Count 194 K/mm3 (150-450); RBC Distribution Width CV 11.9 % (11.6-14.6); RBC Distribution Width SD 38.9 fl (35.1-43.9); Red Blood Count 4.19 M/mm3 (4.2-5.4); White Blood Count 4.4 K/mm3 (4.4-11.0)
[2025-03-25 13:01] LABS: ALB/GLOB Ratio 1.9 RATIO (0.9-2.4); AST(SGOT) 42 U/L (<=31); Alanine Aminotransfer ALT/SGPT 52 U/L (<=34); Albumin, Serum 4.4 g/dL (3.5-5.0); Alkaline Phosphatase 53 U/L (35-104); Anion Gap 11 (5-15); BUN 10 mg/dL (4-19); BUN/Creat Ratio 14.6 RATIO (10-20); Calcium,Total 9.7 mg/dL (7.6-11.0); Carbon Dioxide 24.7 mmol/L (21.0-32.0); Chloride 106 mmol/L (98-108); Cholesterol 174 mg/dL (<=200); Creatinine, Serum 0.67 mg/dL (0.70-1.20); EST Glomerular Filtration Rate 101 (>60); Globulin 2.3 g/dL (2.2-4.2); Glucose 114 mg/dL (70-99); High Density Lipoprotein 47 mg/dL; Low Density Lipoprotein Calc. 107 mg/dL; Potassium 4.1 mmol/L (3.3-5.1); Protein, Total 6.7 g/dL (5.9-8.4); Sodium Level 142 mmol/L (133-145); Total Bilirubin 0.51 mg/dL (0.00-1.30); Triglycerides 100 mg/dL; Very Low Density Lipoprotein 20 mg/dL (5-40); cholesterol:hdl ratio screen 3.69
== END | disposition home or self-care (01) ==
LOC: BIMLAB 08:42
PROVIDERS: PCP Internal Medicine; Referring Provider Internal Medicine; Visit Provider Internal Medicine
DX: Z00.00 Encounter for general adult medical examination without abnormal findings (principal)
CPT/HCPCS: 36415; 80053; 80061; 85025

== ENCOUNTER → 2025-04-13 | Outpatient (CLI) | payer BC, SELFPAY ==
[2025-04-13 09:57] LABS: ALB/GLOB Ratio 2.1 RATIO (0.9-2.4); AST(SGOT) 43 U/L (<=31); Alanine Aminotransfer ALT/SGPT 55 U/L (<=34); Albumin, Serum 4.6 g/dL (3.5-5.0); Alkaline Phosphatase 51 U/L (35-104); Anion Gap 11 (5-15); BUN 13 mg/dL (4-19); BUN/Creat Ratio 18.4 RATIO (10-20); Calcium,Total 9.9 mg/dL (7.6-11.0); Carbon Dioxide 25.5 mmol/L (21.0-32.0); Chloride 105 mmol/L (98-108); EST Glomerular Filtration Rate 100 (>60); Globulin 2.2 g/dL (2.2-4.2); Glucose 113 mg/dL (70-99); Potassium 4.3 mmol/L (3.3-5.1); Protein, Total 6.8 g/dL (5.9-8.4); Sodium Level 141 mmol/L (133-145); Total Bilirubin 0.43 mg/dL (0.00-1.30)
== END | disposition home or self-care (01) ==
LOC: BIMLAB 08:23
PROVIDERS: PCP Internal Medicine; Referring Provider Internal Medicine Endocrinology, Diabetes & Metabolism; Visit Provider Internal Medicine Endocrinology, Diabetes & Metabolism
DX: E03.8 Other specified hypothyroidism (principal); E83.42 Hypomagnesemia
CPT/HCPCS: 36415; 80053; 83735; 84443

== ENCOUNTER → 2025-04-28 | Outpatient (CLI) | payer BC, SELFPAY ==
--- NOTE | 2025-04-28 09:03 | US_ITS ---
PROCEDURE: ABD LIMITED W/ ELASTOGRAPHY REASON FOR EXAM: TRANSAMINITIS COMPARISON: None. TECHNIQUE: Right upper quadrant abdominal ultrasound. Katie ElastQ Imaging shear wave elastography for non-invasive assessment of liver tissue stiffness. Katie EPIQ Elite. FINDINGS: LIVER: Size: Unremarkable Length: 16.1 cm Echotexture: Diffusely echogenic suggesting fatty infiltration Contour: Normal Lesions: There is a 1.4 cm x 1.4 cm x 0.7 cm cyst in the anterior aspect of the right lobe of the liver. Elastography: EQI Med: 9.4 kPa EQI Med Butch: 1.76 m/s IQR/Med: 18.5 %* GALLBLADDER: Normal COMMON BILE DUCT: Normal . PANCREAS: Normal Visualized portions of the right kidney are unremarkable. No right upper quadrant ascites. US/ABD Limited w/ Elastography IMPRESSION: MODERATE TO SEVERE HEPATIC FIBROSIS Fatty infiltration of the liver. Small cyst in the right lobe of the liver. Reference Values: SRU <1.37 m/s (5.7kPa): No to mild fibrosis 1.37 m/s - 2.2 m/s: Moderate to severe fibrosis >2.2 m/s (15kPa): Significant fibrosis / cirrhosis METAVIR Score F2 or higher: 1.34 m/s (5.7kPa) F3 or higher: 1.55 m/s (7.3kPa) F4: 1.80 m/s (10kPa) * If the IQR/Med is >30%, the variance in the measurements is a large and the a ccuracy of the measurement may be in question. Reading Location: [place] [id number]
== END | disposition home or self-care (01) ==
PROVIDERS: PCP Internal Medicine; Referring Provider Internal Medicine; Visit Provider Internal Medicine
DX: R74.01 Elevation of levels of liver transaminase levels (principal)
CPT/HCPCS: 76705; 76981

== ENCOUNTER 2025-08-06 06:13 | Day surgery (SDC) | payer BC, SELFPAY ==
[2025-08-06] VITALS (9 sets, daily range): BP systolic 90–140; BP diastolic 58–67; PULSE 58–69; RESP 16; TEMP 36.2–36.5; O2SAT 94–98; BMI 29.4
--- OUTSIDE RECORDS SUMMARY | 2025-08-06 06:28 | XMS RPT_ITS | CCD ---
Author Organization [facility] Care Team Providers Care Cupola Patcher Name Role Phone Dr. Mandeep Segura Primary Care Provider Dr. Mandeep Hampton Attending Provider Dr. Mandeep Segura Primary Care Provider [phone] Dr. Jas Willoughby Attending Provider [phone] Dr. Mandeep Segura Primary Care Provider Dr. Jas Willoughby Attending Provider [phone] Dr. Mandeep Segura Referring Provider [phone] DONNA Herndon Attending Provider Dr. Erma Quiros Attending Provider Chula SANTO, Dr. Ritchie Primary Care Provider Chula SANTO, Dr. Ritchie Attending Provider Dr. Eram Quiros MD Referring Provider Dr. Bobby Torres DO Attending Provider Dr. Bobby Torres DO Referring Provider León SANTO, Dr. Contreras Attending Provider Oleghe, Efewongbe Primary Care Unavailable Friend, Adrian Attending Unavailable Oleghe, Efewongbe Referring Unavailable Oleghe, Efewongbe Primary Care Unavailable Referred, Self Attending Unavailable Bobby Torres Referring Unavailable Oleghe, Efewongbe Primary Care Unavailable Bobby Torres Attending Unavailable Oleghe, Efewongbe Referring Unavailable Oleghe, Efewongbe Primary Care Unavailable Oleghe, Efewongbe Attending Unavailable Oleghe, Efewongbe Referring Unavailable Oleghe, Efewongbe Primary Care Unavailable Oleghe, Efewongbe Attending Unavailable Oleghe, Efewongbe Referring Unavailable Oleghe, Efewongbe Primary Care Unavailable Oleghe, Efewongbe Attending Unavailable Oleghe, Efewongbe Referring Unavailable Ben Traore Attending Unavailable Oleghe, Efewongbe Primary Care Unavailable Bobby Torres Referring Unavailable Oleghe, Efewongbe Primary Care Unavailable Bobby Torres Attending Unavailable Claudia Spear Attending Unavailable Claudia Spear Referring Unavailable Olejonahe, Efewongbe Primary Care Unavailable Allergies Allergy Classification Reported Allergen(s) Allergy Type Date of Onset Reaction(s) Facility (10 sources) Environmental Allergies: Uncoded; Translations: [Environmental Allergies: Uncoded] Allergy to substance 2 SNEEZE, ITCHY EYES, RUNNY NOSE [facility] Medications Current Medications Medication Drug Class(es) Dates Sig (Normalized) Sig (Original) bazedoxifene 20 mg / estrogens, conjugated (prison) 0.45 mg oral tablet (13 sources) Estrogen Start: 12-03-2023 End: 11-06-2024 take 1 tablet by mouth once daily Conj Estrogens-Bazedox ifene (Duavee) 0.45-20 mg tablet Active 1 {tbl} PO DAILY 90 3 November 06, 2024 10:26am Start: 11-01-2023 End: 11-07-2023 take 1 tablet by mouth once daily Conj Estrogens-Bazedoxifene (Duavee) 0.45-20 mg tablet Discontinued 1 {tbl} PO DAILY 30 0 November 01, 2023 1:00am November 07, 2023 3:23pm Dyspareunia biotin 1 mg oral capsule (10 sources) Start: 05-06-2020 take 1 capsule by mouth once daily Biotin 1 mg capsule Active 1 mg PO DAILY May 06, 2020 12:00am calcium citrate 1190 mg / cholecalciferol 0.005 mg oral tablet (14 sources) Vitamin D Start: 03-25-2025 Calcium Citrate-Vitamin D3 (Citracal Regular) 250 mg-5 mcg (200 unit) tablet Active 2 {tbl} PO BEDTIME March 25, 2025 8:14am Start: 05-12-2021 End: 03-25-2025 Calcium Citrate-Vitamin D3 ( Citracal Regular) 250 mg-5 mcg (200 unit) tablet Discontinued 1 {tbl} PO THREE TIMES A DAY May 12, 2021 12:00am March 25, 2025 8:15am cetirizine hydrochloride 10 mg oral capsule (10 sources) Histamine-1 Receptor Antagonist Start: 01-16-2018 take 1 capsule by mouth once daily Cetirizine (Zyrtec) 10 mg capsule Active 10 mg PO daily January 16, 2018 1:00am cholecalciferol 0.05 mg oral capsule (10 sources) Vitamin D Start: 05-06-2020 take 1 capsule by mouth once daily Cholecalciferol (Vitamin D3) 50 mcg (2,000 unit) capsule Active 50 ug PO DAILY May 06, 2020 12:00am clobetasol propionate 0.0005 mg/mg topical ointment (20 sources) Corticosteroid Start: 12-03-2023 Clobetasol 0.05 % ointment Active 1 NMA TOPICAL AT BEDTIME 60 3 December 03, 2023 11:39am apply thin layer; massage gently into affected area nightly 1-2x weekly Start: 05-12-2021 End: 11-07-2023 Clobetasol 0.05 % ointment D iscontinued 1 NMA TOPICAL AT BEDTIME 60 3 August 17, 2023 3:37pm September 13, 2023 1:02pm apply thin layer; massage gently into affected area nightly x 6 weeks then 1-2x weekly Start: 05-06-2020 End: 05-12-2021 Clobetasol 0.05 % ointment D iscontinued 1 NMA TOPICAL TWICE A DAY 45 14 2 May 06, 2020 12:00am May 12, 2021 9:55am Apply finger tip amount to vaginal area nightly for 2 weeks , daily for 2 weeks then as needed. Start: 05-06-2020 End: 05-12-2021 Clobetasol Discontinued 1 AP PLIC TOPICAL TWICE A DAY 45 14 May 05, 2020 11:00pm May 12, 2021 8:55am Apply finger tip amount to vaginal area nightly for 2 weeks , daily for 2 weeks then as needed. levothyroxine sodium 0.088 mg oral tablet (20 sources) l-Thyroxine Start: 03-25-2025 Levothyroxine 88 mcg tablet Active 88 ug PO DAILY March 25, 2025 8:15am 44mcg daily on Sunday only Start: 04-17-2020 End: 03-25-2025 take 1 tablet by mouth once daily Levothyroxine 88 MCG tablet Discontinued 88 ug PO DAILY April 17, 2020 12:00am March 25, 2025 8:15am Start: 11-28-2013 End: 01-16-2018 take 1 tablet by mouth once daily Levothyroxine 75 MCG tablet Discontinued 75 ug PO DAILY November 28, 2013 1:00am January 16, 2018 12:33pm Multivitamin preparation (6 sources) Start: 05-06-2020 take 1 tablet by mouth once daily Multivitamin Active 1 TABLET PO DAILY May 05, 2020 11:00pm Start: 05-06-2020 take 1 tablet by stephy th once daily Multivitamin Active 1 TABLET PO DAILY May 06, 2020 12:00am Multivitamin tablet (4 sources) Start: 05-06-2020 Multivitamin tablet Active 1 {tbl} PO DAILY May 06, 2020 12:00am omeprazole 20 mg disintegrating oral tablet (10 sources) Proton Pump Inhibitor Start: 04-17-2020 take 1 tablet by mouth once daily Omeprazole 20 MG tablet,disintegrat , delay rel Active 20 mg PO DAILY April 17, 2020 12:00am Completed/Discontinued Medications Medication Drug Class(es) Dates Sig (Normalized) Sig (Original) buPROPion hydrochloride 75 mg oral tablet (10 sources) Aminoketone Start: 11-28-2013 End: 01-16-2018 take 1 tablet by mouth once daily Bupropion Hcl 75 MG tablet Discontinued 75 mg PO DAILY November 28, 2013 1:00am January 16, 2018 12:33pm calcium ascorbate 500 mg oral tablet (10 sources) Start: 05-06-2020 End: 03-25-2025 take 1 tablet by mouth once daily Ascorbate Calcium (Vitamin C) 500 mg tablet Discontinued 500 mg PO DAILY May 06, 2020 12:00am March 25, 2025 8:14am esomeprazole 20 mg delayed release oral capsule (10 sources) Proton Pump Inhibitor Start: 11-28-2013 End: 01-16-2018 take 1 capsule by mouth once daily Esomeprazole Magnesium 20 MG capsule Discontinued 20 mg PO DAILY November 28, 2013 1:00am January 16, 2018 12:33pm estradiol 0.1 mg/ml vaginal cream (10 sources) Estrogen Start: 05-06-2020 End: 06-04-2020 Estradiol (Estrace) 0.01 % (0.1 mg/gram) cream Discontinued 0 VAGINAL .COMPLEX 42.5 3 May 06, 2020 12:00am June 04, 2020 4:10pm use fingertip amount or 1-2g every night vaginally x 2 weeks, then 1-3x weekly for maintenance Start: 05-06-2020 End: 06-04-2020 Estradiol (Estrace) 0.01 % ( 0.1 mg/gram) cream Discontinued 0 VAGINAL .COMPLEX 42.5 May 05, 2020 11:00pm June 04, 2020 3:10pm use fingertip amount or 1-2g every night vaginally x 2 weeks, then 1-3x weekly for maintenance liothyronine sodium 0.005 mg oral tablet (10 sources) l-Triiodothyronine Start: 04-17-2020 End: 11-07-2023 take 1 tablet by mouth once daily Liothyronine 5 MCG tablet Discontinued 5 ug PO DAILY April 17, 2020 12:00am November 07, 2023 3:23pm ospemifene 60 mg oral tablet (20 sources) Start: 06-04-2020 End: 11-01-2023 Ospemifene (Osphena) 60 mg tablet Discontinued 0 .ROUTE .COMPLEX 90 3 August 17, 2023 3:36pm November 01, 2023 11:45am TAKE 1 TABLET DAILY WITH FOOD (MEAL/SNACK) Problems Active Problems Problem Classification Problem Date Documented Date Episodic/Chronic Conditions associated with dizziness or vertigo (6 sources) Vertigo; Translations: [Dizziness and giddiness] 03-25-2025 Episodic Contraceptive and procreative management (10 sources) Intrauterine contraceptive device in situ; Translations: [Encounter for routine checking of intrauterine contraceptive device] 05-06-2020 Episodic Comment on above: check fsh and estrad iol and if in postmenopausal range recommend iud removal. Menopausal disorders (4 sources) Menopausal syndrome; Translations: [Menopausal and female climacteric states] 12-03-2023 Chronic Comment on above: cristo. coconut oil Other connective tissue disease (6 sources) Cramp; Translations: [Cramp and spasm] 03-25-2025 Episodic Other female genital disorders (10 sources) Dyspareunia; Translations: [Dyspareunia] 05-12-2021 Chronic Comment on above: duavee Other injuries and conditions due to external causes (20 sources) Foreign body in ear; Translations: [Foreign body in ear, unspecified ear, initial encounter] 04-18-2020 Episodic Other liver diseases (1 source) Hepatic fibrosis; Translations: [Hepatic fibrosis] 04-28-2025 Chronic Other liver diseases (4 sources) Elevated liver enzymes level; Translations: [Abnormal levels of other serum enzymes] 11-05-2024 Episodic Comment on above: resolved Other liver diseases (2 sources) Enzyme level - finding; Translations: [Elevated transaminase measurement] 04-13-2025 Episodic Other non-traumatic joint disorders (4 sources) Ankle pain; Translations: [Pain in left ankle and joints of left foot] 06-04-2024 Episodic Other nutritional; endocrine; and metabolic disorders (10 sources) History of Graves' disease; Translations: [Personal history of other endocrine, nutritional and metabolic disease] 04-17-2020 Episodic Comment on above: hypothyroid Other nutritional; endocrine; and metabolic disorders (1 source) Personal history of other endocrine, nutritional and metabolic disease; Translations: [Personal history of other endocrine, metabolic, and immunity disorders] 11-07-2023 Episodic Other skin disorders (10 sources) Lichen sclerosus et atrophicus; Translations: [Lichen sclerosus et atrophicus] 05-06-2020 Chronic Comment on above: clobetasol Residual codes; unclassified (10 sources) Positive measurement finding; Translations: [Positive test for human papillomavirus (HPV)] 05-06-2020 Episodic Comment on above: repeat pap hpv in 2019 was nl and neg hpv; 2022 neg pap and hpv Spondylosis; intervertebral disc disorders; other back problems (10 sources) Spondylosis; Translations: [Spondylosis, unspecified] 04-17-2020 Chronic Thyroid disorders (1 source) Other specified hypothyroidism; Translations: [Other specified hypothyroidism] Onset: 04-16-2025 Chronic Unclassified (1 source) Elevation of levels of liver transaminase levels; Translations: [Elevation of levels of liver transaminase levels] Onset: 04-28-2025 Past or Other Problems Problem Classification Problem Date Documented Da te Episodic/Chronic Other screening for suspected conditions (not mental disorders or infectious disease) (1 source) Encounter for screening mammogram for malignant neoplasm of breast; Translations: [Encounter for screening mammogram for malignant neoplasm of breast] Onset: 09-23-2024 Episodic Results Test Name Value Interpretation Reference Range Facility Gastroenterology Visit Repor ton 06-16-2025 Gastroenterology Visit Report [facility] [address] [place] [address] OFFICE VISIT Date of Service: 06/16/25 MR#: [id number] Acct: [id number] Name: LANCE ANGELES Rep #: [id number] : 1965 Provider: Dr. Ben salas MD Age/Sex: 59/F Location: [facility] [place] Status: Signed Intake Vital Signs 03/25/25 08:13 06/16/25 12:56 Height 5 ft 3 in 5 ft 3 in Weight: 175 lb 165 lb BMI 30.9 29.2 BP 140/80 H 133/83 H Blood Pressure Location Lt brachial Rt brachial Position Sitting Sitting Respiration 18 Pulse 90 74 Pulse Source Monitor Temp 98.2 F Temp Source Temporal Pulse Oximetry (%) 95 95 Oxygen Delivery Method room air room air Intake Visit Reasons: Hepatic Fibrosis Chief Complaint: Hepatic fibrosis Allergies Environmental Allergies: Uncoded Allergy (Mild, Verified 06/16/25 12:56) SNEEZE, ITCHY EYES, RUNNY NOSE Medications ???Medication ???Instructions ???Recorded ???Confirmed ???Type cetirizine 10 mg capsule (Zyrtec) 10 mg PO QDAY 01/16/18 06/16/25 H istory omeprazole 20 mg delayed 20 mg PO DAILY 04/17/20 06/16/25 H istory release,disintegrati ng tablet cholecalciferol (vitamin D3) 50 50 mcg PO DAILY 05/06/20 06/16/25 History mcg (2,000 unit) capsule multivitamin 1 tab PO DAILY 05/06/20 06/16/25 H istory clobetasol 0.05 % topical ointment 1 applic topical QHS #60 grams 0 12/03/23 06/16/25 Rx conjugated estrogens 0.45 1 tab PO DAILY #90 tabs 11/06/24 0 06/16/25 Rx mg-bazedoxifene 20 mg tablet (Duavee) calcium 250 mg (as 2 tab PO HS 03/25/25 06/16/25 Hist ory citrate)-vitamin D3 5 mcg (200 unit) tablet (Citracal Regular) levothyroxine 88 mcg tablet 88 mcg PO DAILY 03/25/25 06/16/25 History famotidine 20 mg tablet (Pepcid) 20 mg PO BID 1 month #60 tabs 04/0506/16/25 Rx PFSH Medical History (Updated 06/16/25 @ 13:[address] Ben Traore MD) Hepatic fibrosis Transaminitis Vertigo Muscle cramps Preventative health care Elevated liver enzymes Graves disease Surgical History S/P wisdom tooth extraction Family History Father Heart disease Mother No problems noted. 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 [employer] current occupational exposures/hazards: No history of recent travel: No Smoking Status: Former smoker second hand exposure: No alcohol intake: current alcohol intake frequency: holidays/special occasions only Alcohol type: hard liquor substance use type: does not use what type of physical activity do you participate in: none frequency: 3-4 times per week seatbelt use: always do you feel safe at home: Yes additional social history: Javon Barry- Boyfriend HPI HPI Chief Complaint: Hepatic fibrosis Details: LANCE ANGELES, is a 59 F who presents to the office today for initial consult. PCP referred for hepatic fibrosis. US abd/ elastography 06.27.25- Liver measures 16.1cm, Stiffness 9.4 kPa 03.25.25 Fib-4 1.74 06/16/2025: Patient was referred by PCP for elevated liver enzymes and liver fibrosis on ultrasound. She does not have acute abdominal related symptoms including abdominal pain/discomfort, jaundice, GI bleed but has chronic GERD for more than 15 to 20 years and is on PPI. She had EGD more than 10-15 years ago and was normal. Had recently colonoscopy at the age of 56. Social history: Started smoking at the age of 22, 1 to 1.5 pack/day and quit more than 10 years ago. Occasional social drinking alcohol. Denies substance use. Family history: Personal history of Graves' disease and had radioactive thyroid treatment and is on levothyroxine for supplement. Her maternal aunt has liver disease. Her father, grandfather had RA ROS Const Constitutional: Positive for fatigue; No fever(s) or weight change ENT ENT: No difficulty swallowing Resp Respiratory: No shortness of breath or wheezing Cardio Cardiology: No chest pain at rest or dyspnea on exertion Gastro GI: No abdominal pain, belching, bloating, change in bowel habits, change in stool character, coffee ground emesis, constipation, cramping, diarrhea, heartburn, difficulty swallowing, feeling full early, excessive flatus, incontinent of stools, Vomiting blood/hematemesis, Blood in stool, loose stools, Black,tarry stools, nausea/dyspepsia, pain with swallowing, vomiting or other Genitourinary-Female : No difficulty urinating or burning urination Musc Musculoskeletal: Positive for back pain, muscle cramps and muscle weakness; No abnormal gait or joint pain Sk (more content not included)... Normal [facility] ABD Limited w/ Elastographyo n 04-28-2025 ABD Limited w/ Elastography [facility] [address] [place], [place] [id number] ABD Limited w/ Elastography MR#: [id number] Acct: [id number] Name: LANCE ANGELES Rep #: [id number] : 1965 F 59 From: Handy yoo MD PCP: Dr. Erma Quiros MD Status: REG CL Study: ABD Limited w/ Elastography Date of Exam: 04/12 06/05 Exam# [id number] Ordering Dr: Erma Quiros MD PROCEDURE: ABD LIMITED W/ ELASTOGRAPHY REASON FOR EXAM: TRANSAMINITIS COMPARISON: None. TECHNIQUE: Right upper quadrant abdominal ultrasound. Katie ElastQ Imaging shear wave elastography for non- invasive assessment of liver tissue stiffness. [employer] E[employer]. FINDINGS: LIVER: Size: Unremarkable Length: 16.1 cm Echotexture: Diffusely echogenic suggesting fatty infiltration Contour: Normal Lesions: There is a 1.4 cm x 1.4 cm x 0.7 cm cyst in the anterior aspect of the right lobe of the liver. Elastography: EQI Med: 9.4 kPa EQI Med Butch: 1.76 m/s IQR/Med: 18.5 %* GALLBLADDER: Normal COMMON BILE DUCT: Normal . PANCREAS: Normal Visualized portions of the right kidney are unremarkable. No right upper quadrant ascites. US/ABD Limited w/ Elastography IMPRESSION: MODERATE TO SEVERE HEPATIC FIBROSIS Fatty infiltration of the liver. Small cyst in the right lobe of the liver. Reference Values: SRU <1.37 m/s (5.7kPa): No to mild fibrosis 1.37 m/s - 2.2 m/s: Moderate to severe fibrosis >2.2 m/s (15kPa): Significant fibrosis / cirrhosis METAVIR Score F2 or higher: 1.34 m/s (5.7kPa) F3 or higher: 1.55 m/s (7.3kPa) F4: 1.80 m/s (10kPa) * If the IQR/Med is >30%, the variance in the measurements is a large and the accuracy of the measurement may be in question. Reading Location: [place] [address] CC: Dr. Erma Quiros MD Structural Engineering Drafting Officer: Signed Normal [facility] Anion gap in Serum or Plasma Ordered By: Erma Quiros on 04-13-2025 Anion gap [Moles/Vol] 11 mmol/L 5-15 [facility] BUN/creatinine ratioOrdered By: Erma Quiros on 04-13-2025 Urea nitrogen/Creatinine [Mass ratio] 18.4 mg/mg 10-20 [facility] Bilirubin, totalOrdered By: Erma Quiros on 04-13-2025 Bilirubin [Mass/Vol] 0.43 mg/dL 0.00-1.30 [facility] Carbon dioxide, total [Moles /volume] in Central venous bloodOrdered By: Erma Quiros on 04-13-2025 CO2 [Moles/Vol] 25.5 mmol/L 21.0-32.0 [facility] Chloride assayOrdered By: Alisa Quiros on 04-13-2025 Chloride [Moles/Vol] 105 mmol/L 98-108 [facility] Comprehensive Metabolic Prof ilon 04-13-2025 Albumin [Mass/Vol] 4.6 g/dL Normal 3.5-5.0 [facility] Comment on above: Order Comment: DR. Monik BLANCO ORDERED CMP DR. TORRES ORDERED ALL LABS Performed By: #### L [id number], [id number], [id number] #### [facility] [address] [place], [address] Albumin/Globulin [Mass ratio] 2.1 {ratio} Normal 0.9-2.4 [facility] Comment on above: Order Comment: DR. Monik BLANCO ORDERED CMP DR. TORRES ORDERED ALL LABS Performed By: #### L [id number], [id number], [id number] #### [facility] [address] [place], [address] ALK PHOS 51 U/L Normal 35-104 [facility] Comment on above: Order Comment: DR. Monik BLANCO ORDERED CMP DR. TORRES ORDERED ALL LABS Performed By: #### L [id number], [id number], [id number] #### [facility] [address] [place], [address] ALT [Catalytic activity/Vol] 55 U/L High <=34 [facility] Comment on above: Order Comment: DR. Monik BLANCO ORDERED CMP DR. TORRES ORDERED ALL LABS Performed By: #### L [id number], [id number], [id number] #### [facility] [address] [place], [address] AST [Catalytic activity/Vol] 43 U/L High <=31 [facility] Comment on above: Order Comment: DR. Monik BLANCO ORDERED CMP DR. TORRES ORDERED ALL LABS Performed By: #### L [id number], [id number], [id number] #### [facility] [address] [place], [address] Bilirubin [Mass/Vol] 0.43 mg/dL Normal 0.00-1.30 [facility] Comment on above: Order Comment: DR. Monik BLANCO ORDERED CMP DR. TORRES ORDERED ALL LABS Performed By: #### L [id number], [id number], [id number] #### [facility] [address] [place], [address] BUN/CRE 18.4 RATIO Normal 10-20 [facility] Comment on above: Order Comment: DR. Monik BLANCO ORDERED CMP DR. TORRES ORDERED ALL LABS Performed By: #### L [id number], [id number], [id number] #### [facility] [address] [place], [address] Calcium [Mass/Vol] 9.9 mg/dL Normal 7.6-11.0 [facility] Comment on above: Order Comment: DR. Monik BLANCO ORDERED CMP DR. TORRES ORDERED ALL LABS Performed By: #### L [id number], [id number], [id number] #### [facility] [address] [place], [address] Chloride [Moles/Vol] 105 mmol/L Normal 98-108 [facility] Comment on above: Order Comment: DR. Monik BLANCO ORDERED CMP DR. TORRES ORDERED ALL LABS Performed By: #### L [id number], [id number], [id number] #### [facility] [address] [place], [address] CO2 [Moles/Vol] 25.5 mmol/L Normal 21.0-32.0 [facility] Comment on above: Order Comment: DR. Monik BLANCO ORDERED CMP DR. TORRES ORDERED ALL LABS Performed By: #### L [id number], [id number], [id number] #### [facility] [address] [place], [address] Creatinine [Mass/Vol] 0.70 mg/dL Normal 0.70-1.20 [facility] Comment on above: Order Comment: DR. Monik BLANCO ORDERED CMP DR. TORRES ORDERED ALL LABS Performed By: #### L [id number], [id number], [id number] #### [facility] [address] [place], [address] GAP 11 Normal 5-15 [facility] Comment on above: Order Comment: DR. Monik BLANCO ORDERED CMP DR. TORRES ORDERED ALL LABS Performed By: #### L [id number], [id number], [id number] #### [facility] [address] [place], [address] GFR/1.73 sq M.predicted among non-blacks MDRD (S/P/Bld) [Vol rate/Area] 100 mL/min/{1.73_m2} Normal >60 [facility] Comment on above: Order Comment: DR. Monik BLANCO ORDERED CMP DR. TORRES ORDERED ALL LABS Result Comment: mL/m in/1.73m2 CKD-EPI Creatinine Equation (2020) Performed By: #### L [id number], [id number], [id number] #### [facility] [address] [place], [address] Globulin (S) [Mass/Vol] 2.2 g/dL Normal 2.2-4.2 [facility] Comment on above: Order Comment: DR. Monik BLANCO ORDERED CMP DR. TORRES ORDERED ALL LABS Performed By: #### L [id number], [id number], [id number] #### [facility] [address] [place], [address] Glucose [Mass/Vol] 113 mg/dL High 70-99 [facility] Comment on above: Order Comment: DR. Monik BLANCO ORDERED CMP DR. TORRES ORDERED ALL LABS Performed By: #### L [id number], [id number], [id number] #### [facility] [address] [place], [address] Potassium [Moles/Vol] 4.3 mmol/L Normal 3.3-5.1 [facility] Comment on above: Order Comment: DR. Monik BLANCO ORDERED CMP DR. TORRES ORDERED ALL LABS Performed By: #### L [id number], [id number], [id number] #### [facility] [address] [place], [address] Sodium [Moles/Vol] 141 mmol/L Normal 133-145 [facility] Comment on above: Order Comment: DR. Monik BLANCO ORDERED CMP DR. TORRES ORDERED ALL LABS Performed By: #### L [id number], [id number], [id number] #### [facility] [address] [place], [address] T PROT 6.8 g/dL Normal 5.9-8.4 [facility] Comment on above: Order Comment: DR. Monik BLANCO ORDERED CMP DR. TORRES ORDERED ALL LABS Performed By: #### L [id number], [id number], [id number] #### [facility] [address] [place], [address] Urea nitrogen [Mass/Vol] 13 mg/dL Normal 4-19 [facility] Comment on above: Order Comment: DR. Monik BALNCO ORDERED CMP DR. TORRES ORDERED ALL LABS Performed By: #### L [id number], [id number], [id number] #### [facility] [address] [place], [address] Glomerular filtration rate ( GFR) estimation/1.73 sq m using serum, plasma, or whole bOrdered By: Erma Quiros on 04-13-2025 GFR/1.73 sq M.predicted among non-blacks MDRD (S/P/Bld) [Vol rate/Area] 100 mL/min/{1.73_m2} >60 [facility] Comment on above: mL/min/1.73m2 CKD-EP I Creatinine Equation (2020) Laboratory - Chemistry and C hemistry - challengeOrdered By: Erma Quiros on 04-13-2025 AST [Catalytic activity/Vol] 43 U/L High <32 [facility] Magnesiumon 04-13-2025 Magnesium [Mass/Vol] 2.0 mg/dL Normal 1.5-2.2 [facility] Comment on above: Order Comment: DR. Monik BLANCO ORDERED CMPDR. BRIAN ORDERED ALL LABS Performed By: #### L 501.9520, L500.4050, L501.5200 ####[facility] [id number] [place], [address] Magnesium measurement (mass/ volume)Ordered By: Erma Quiros on 04-13-2025 Magnesium (Unsp spec) [Mass/Vol] 2.0 mg/dL 1.5-2.2 [facility] Potassium measurement (mass/ volume)Ordered By: Erma Quiros on 04-13-2025 Potassium (Unsp spec) [Mass/Vol] 4.3 mmol/L 3.3-5.1 [facility] Serum creatinine measurement (mass/volume)Ordered By: Erma Quiros on 04-13-2025 Creatinine [Mass/Vol] 0.70 mg/dL 0.70-1.20 [facility] Serum globulin measurementOr dered By: Erma Quiros on 04-13-2025 Globulin (S) [Mass/Vol] 2.2 g/dL 2.2-4.2 [facility] Serum glucose measurement (m ass/volume)Ordered By: Erma Quiros on 04-13-2025 Glucose [Mass/Vol] 113 mg/dL High 70-99 [facility] Serum or plasma alanine ha otransferase (ALT) measurementOrdered By: Erma Quiros on 04-13-2025 ALT [Catalytic activity/Vol] 55 U/L High <35 [facility] Serum or plasma albumin adiel urement (mass/volume)Ordered By: Erma Quiros on 04-13-2025 Albumin [Mass/Vol] 4.6 g/dL 3.5-5.0 [facility] Serum or plasma albumin/glob ulin mass ratioOrdered By: Erma Quiros on 04-13-2025 Albumin/Globulin [Mass ratio] 2.1 {ratio} 0.9-2.4 [facility] Serum or plasma alkaline mateo sphatase measurementOrdered By: Erma Quiros on 04-13-2025 ALP [Catalytic activity/Vol] 51 U/L 35-104 [facility] Serum or plasma calcium adiel urement (mass/volume)Ordered By: Erma Quiros on 04-13-2025 Calcium [Mass/Vol] 9.9 mg/dL 7.6-11.0 [facility] Serum or plasma urea nitroge n measurement (mass/volume)Ordered By: Erma Quiros on 04-13-2025 Urea nitrogen [Mass/Vol] 13 mg/dL 4-19 [facility] Sodium levelOrdered By: Rene yinlisa Chula on 04-13-2025 Sodium [Moles/Vol] 141 mmol/L 133-145 [facility] TSH DL <= 0.005 mIU/L QnOrde red By: Erma Quiros on 04-13-2025 TSH Qn 1.620 uIU/mL 0.300-4.200 [facility] Thyroid Stim Hormone (TSH)on 04-13-2025 TSH 1.620 uIU/mL Normal 0.300-4.200 [facility] Comment on above: Order Comment: DR. Monik BLANCO ORDERED CMPDR. BRIAN ORDERED ALL LABS Performed By: #### L 501.9519, L500.4050, L501.5200 ####[facility] [id number] [place], [place], [id number] Total proteinOrdered By: Lane Quiros on 04-13-2025 Protein [Mass/Vol] 6.8 g/dL 5.9-8.4 [facility] Absolute lymphocyte countOrd ered By: Erma Quiros on 03-25-2025 Lymphocytes Auto (Unsp spec) [#/Vol] 1.44 10*3/uL 0.83-4.51 [facility] Absolute neutrophil countOrd ered By: wagner Quiros on 03-25-2025 Neutrophils (Bld) [#/Vol] 2.5 10*3/uL 2.0-7.7 [facility] Anion gap in Serum or Plasma Ordered By: wagner Quiros on 03-25-2025 Anion gap [Moles/Vol] 11 mmol/L - [facility] Automated lymphocyte count a s percentage of total leukocytesOrdered By: Erma Quiros on 03-25-2025 Lymphocytes/100 WBC Auto (Unsp spec) 32.7 % - [facility] BUN/creatinine ratioOrdered By: wagner Quiros on 03-25-2025 Urea nitrogen/Creatinine [Mass ratio] 14.6 mg/mg - [facility] Basophil percentageOrdered B y: Erma Quiors on 03-25-2025 Basophils/100 WBC (Bld) 0.7 % 0- [facility] Bilirubin, totalOrdered By: Erma Quiros on 03-25-2025 Bilirubin [Mass/Vol] 0.51 mg/dL 0.00-1.30 [facility] CBC W/Diff, Automatedon 03-12 Absolute Lymph 1.44 X10 3/uL Normal 0.83-4.51 [facility] Comment on above: Performed By: #### L 500.4100, L100.0100, L500.4050 #### [facility] [address] [place], [place], [id number] Absolute Neut 2.5 X10 3/uL Normal 2.0-7.7 [facility] Comment on above: Performed By: #### L 500.4100, L100.0100, L500.4050 #### [facility] [address] [place], [address] Basophils/100 WBC (Bld) 0.7 % Normal 0-1 [facility] Comment on above: Performed By: #### L 500.4100, L100.0100, L500.4050 #### [facility] [address] [place], [address] Eosinophils/100 WBC (Bld) 2.0 % Normal 0-5 [facility] Comment on above: Performed By: #### L 500.4100, L100.0100, L500.4050 #### [facility] [address] [place], [address] Erythrocyte distribution width (RBC) [Ratio] 11.9 % Normal 11.6-14.6 [facility] Comment on above: Performed By: #### L 500.4100, L100.0100, L500.4050 #### [facility] [address] [place], [address] Hematocrit (Bld) [Volume fraction] 37.7 % Normal 37-47 [facility] Comment on above: Performed By: #### L 500.4100, L100.0100, L500.4050 #### [facility] [address] [place], [address] Hemoglobin (Bld) [Mass/Vol] 13.2 g/dL Normal 12.0-15.0 [facility] Comment on above: Performed By: #### L 500.4100, L100.0100, L500.4050 #### [facility] [address] [place], [address] IG% 0.200 Normal 0.0-0.9 [facility] Comment on above: Result Comment: IG% - Immature Granulocytes (promyelocytes, myelocytes and metamyelocytes) > 1% indicates that a LEFT SHIFT is Present. Performed By: #### L 500.4100, L100.0100, L500.4050 #### [facility] [address] [place], [address] Lymphocytes/100 WBC (Bld) 32.7 % Normal 19-41 [facility] Comment on above: Performed By: #### L 500.4100, L100.0100, L500.4050 #### [facility] [address] [place], [address] MCH (RBC) [Entitic mass] 31.5 pg Normal 27.0-32.0 [facility] Comment on above: Performed By: #### L 500.4100, L100.0100, L500.4050 #### [facility] [address] [place], [address] MCHC (RBC) [Mass/Vol] 35.0 g/dL Normal 32-36 [facility] Comment on above: Performed By: #### L 500.4100, L100.0100, L500.4050 #### [facility] [address] [place], [address] MCV (RBC) [Entitic vol] 90.0 fL Normal 81-99 [facility] Comment on above: Performed By: #### L 500.4100, L100.0100, L500.4050 #### [facility] [address] [place], [address] Monocytes/100 WBC (Bld) 7.0 % Normal 0-10 [facility] Comment on above: Performed By: #### L 500.4100, L100.0100, L500.4050 #### [facility] [address] [place], [address] Neutrophils/100 WBC (Bld) 57.4 % Normal 47-70 [facility] Comment on above: Performed By: #### L 500.4100, L100.0100, L500.4050 #### [facility] [address] [place], [address] Nucleated RBC (Bld) [#/Vol] 0 10*3/uL Normal 0-5 [facility] Comment on above: Performed By: #### L 500.4100, L100.0100, L500.4050 #### [facility] [address] [place], [address] Platelet mean volume (Bld) [Entitic vol] 11.1 fL Normal 6.2-12.0 [facility] Comment on above: Performed By: #### L 500.4100, L100.0100, L500.4050 #### [facility] [address] [place], [address] Platelets (Bld) [#/Vol] 194 10*3/uL Normal 150-450 [facility] Comment on above: Performed By: #### L 500.4100, L100.0100, L500.4050 #### [facility] [address] [place], [address] RBC (Bld) [#/Vol] 4.19 10*6/uL Low 4.2-5.4 [facility] Comment on above: Performed By: #### L 500.4100, L100.0100, L500.4050 #### [facility] [address] [place], [address] RDW SD 38.9 fl Normal 35.1-43.9 [facility] Comment on above: Performed By: #### L 500.4100, L100.0100, L500.4050 #### [facility] [address] [place], [address] WBC (Bld) [#/Vol] 4.4 10*3/uL Normal 4.4-11.0 [facility] Comment on above: Performed By: #### L 500.4100, L100.0100, L500.4050 #### [facility] [address] [place], [address] Calculated very low density lipoprotein (VLDL) cholesterol measurementOrdered By: Erma Quiros on 03-25-2025 Calculated very low density lipoprotein (VLDL) cholesterol measurement 20 mg/dL 5-40 [facility] Carbon dioxide, total [Moles /volume] in Central venous bloodOrdered By: Erma Quiros on 03-25-2025 CO2 [Moles/Vol] 24.7 mmol/L 21.0-32.0 [facility] Chloride assayOrdered By: Alisa Quiros on 03-25-2025 Chloride [Moles/Vol] 106 mmol/L 98-108 [facility] Comprehensive Metabolic Prof ilon 03-25-2025 Albumin [Mass/Vol] 4.4 g/dL Normal 3.5-5.0 [facility] Comment on above: Performed By: #### L 500.4100, L100.0100, L500.4050 #### [facility] [address] [place], [address] Albumin/Globulin [Mass ratio] 1.9 {ratio} Normal 0.9-2.4 [facility] Comment on above: Performed By: #### L 500.4100, L100.0100, L500.4050 #### [facility] [address] [place], [address] ALK PHOS 53 U/L Normal 35-104 [facility] Comment on above: Performed By: #### L 500.4100, L100.0100, L500.4050 #### [facility] [address] [place], [address] ALT [Catalytic activity/Vol] 52 U/L High <=34 [facility] Comment on above: Performed By: #### L 500.4100, L100.0100, L500.4050 #### [facility] [address] [place], [address] AST [Catalytic activity/Vol] 42 U/L High <=31 [facility] Comment on above: Performed By: #### L 500.4100, L100.0100, L500.4050 #### [facility] [address] [place], [address] Bilirubin [Mass/Vol] 0.51 mg/dL Normal 0.00-1.30 [facility] Comment on above: Performed By: #### L 500.4100, L100.0100, L500.4050 #### [facility] [address] [place], [address] BUN/CRE 14.6 RATIO Normal 10-20 [facility] Comment on above: Performed By: #### L 500.4100, L100.0100, L500.4050 #### [facility] [address] [place], [address] Calcium [Mass/Vol] 9.7 mg/dL Normal 7.6-11.0 [facility] Comment on above: Performed By: #### L 500.4100, L100.0100, L500.4050 #### [facility] [address] [place], [address] Chloride [Moles/Vol] 106 mmol/L Normal 98-108 [facility] Comment on above: Performed By: #### L 500.4100, L100.0100, L500.4050 #### [facility] [address] [place], [address] CO2 [Moles/Vol] 24.7 mmol/L Normal 21.0-32.0 [facility] Comment on above: Performed By: #### L 500.4100, L100.0100, L500.4050 #### [facility] [address] [place], [address] Creatinine [Mass/Vol] 0.67 mg/dL Low 0.70-1.20 [facility] Comment on above: Performed By: #### L 500.4100, L100.0100, L500.4050 #### [facility] [address] [place], [address] GAP 11 Normal 5-15 [facility] Comment on above: Performed By: #### L 500.4100, L100.0100, L500.4050 #### [facility] [address] [place], [address] GFR/1.73 sq M.predicted among non-blacks MDRD (S/P/Bld) [Vol rate/Area] 101 mL/min/{1.73_m2} Normal >60 [facility] Comment on above: Result Comment: mL/m in/1.73m2 CKD-EPI Creatinine Equation (2020) Performed By: #### L 500.4100, L100.0100, L500.4050 #### [facility] [address] [place], [address] Globulin (S) [Mass/Vol] 2.3 g/dL Normal 2.2-4.2 [facility] Comment on above: Performed By: #### L 500.4100, L100.0100, L500.4050 #### [facility] [address] [place], [address] Glucose [Mass/Vol] 114 mg/dL High 70-99 [facility] Comment on above: Performed By: #### L 500.4100, L100.0100, L500.4050 #### [facility] [address] [place], [address] Potassium [Moles/Vol] 4.1 mmol/L Normal 3.3-5.1 [facility] Comment on above: Performed By: #### L 500.4100, L100.0100, L500.4050 #### [facility] [address] [place], [address] Sodium [Moles/Vol] 142 mmol/L Normal 133-145 [facility] Comment on above: Performed By: #### L 500.4100, L100.0100, L500.4050 #### [facility] [address] [place], [address] T PROT 6.7 g/dL Normal 5.9-8.4 [facility] Comment on above: Performed By: #### L 500.4100, L100.0100, L500.4050 #### [facility] [address] [place], [address] Urea nitrogen [Mass/Vol] 10 mg/dL Normal 4-19 [facility] Comment on above: Performed By: #### L 500.4100, L100.0100, L500.4050 #### [facility] [address] [place], [address] Eosinophil percentageOrdered By: Erma Quiros on 03-25-2025 Eosinophils/100 WBC (Bld) 2.0 % 0-5 [facility] Erythrocyte distribution wid th ratioOrdered By: Erma Quiros on 03-25-2025 Erythrocyte distribution width (RBC) [Ratio] 11.9 % 11.6-14.6 [facility] Erythrocyte distribution wid th standard deviationOrdered By: Erma Quiros on 03-25-2025 Erythrocyte distribution width (RBC) [Ratio] 38.9 fl 35.1-43.9 [facility] Glomerular filtration rate ( GFR) estimation/1.73 sq m using serum, plasma, or whole bOrdered By: Erma Quiros on 03-25-2025 GFR/1.73 sq M.predicted among non-blacks MDRD (S/P/Bld) [Vol rate/Area] 101 mL/min/{1.73_m2} >60 [facility] Comment on above: mL/min/1.73m2 CKD-EP I Creatinine Equation (2020) Hematocrit Auto (Bld) [Volum e fraction]Ordered By: Erma Quiros on 03-25-2025 Hematocrit (Bld) [Volume fraction] 37.7 % 37-47 [facility] Hemoglobin measurementOrdere d By: Erma Quiros on 03-25-2025 Hemoglobin (Bld) [Mass/Vol] 13.2 g/dL 12.0-15.0 [facility] Immature granulocytes/100 WB C Auto (Bld)Ordered By: Erma Quiros on 03-25-2025 Immature granulocytes/100 WBC (Bld) 0.200 % 0.0-0.9 [facility] Comment on above: IG% - Immature Granu locytes (promyelocytes, myelocytes and metamyelocytes) > 1% indicates that a LEFT SHIFT is Present. Internal Medicine Office Vis iton 03-25-2025 Internal Medicine Office Visit [facility] [address] [place] [address] [place] [address] OFFICE VISIT Date of Service: 03/25/25 MR#: [id number] Acct: [id number] Name: LANCE ANGELES Rep #: [id number] : 1965 Provider: Dr. Erma rooney MD Age/Sex: 59/F Location[place] [facility] Status: Signed Intake Vital Signs 06/04/24 08:31 03/25/25 08:13 Height 5 ft 3 in 5 ft 3 in Weight: 175 lb BMI 30.9 BP 140/80 H Blood Pressure Location Lt brachial Position Sitting Respiration 18 Pulse 90 Pulse Source Monitor Temp 98.2 F Temp Source Temporal Pulse Oximetry (%) 95 Oxygen Delivery Method room air Intake Visit Reasons: ANNUAL Chief Complaint: ANNUAL Is patient in pain?: Yes (5 joint pain ) Allergies Environmental Allergies: Uncoded Allergy (Mild, Verified 03/25/25 08:14) SNEEZE, ITCHY EYES, RUNNY NOSE Medications ???Medication ???Instructions ???Recorded ???Confirmed ???Type cetirizine 10 mg capsule (Zyrtec) 10 mg PO QDAY 01/16/18 03/25/25 H istory omeprazole 20 mg delayed 20 mg PO DAILY 04/17/20 03/25/25 H istory release,disintegrati ng tablet biotin 1 mg capsule 1 mg PO DAILY 05/06/20 03/25/25 Hi story cholecalciferol (vitamin D3) 50 50 mcg PO DAILY 05/06/20 03/25/25 History mcg (2,000 unit) capsule multivitamin 1 tab PO DAILY 05/06/20 03/25/25 H istory clobetasol 0.05 % topical ointment 1 applic topical QHS #60 grams 0 12/03/23 03/25/25 Rx conjugated estrogens 0.45 1 tab PO DAILY #90 tabs 11/06/24 0 03/25/25 Rx mg-bazedoxifene 20 mg tablet (Duavee) calcium 250 mg (as 2 tab PO HS 03/25/25 03/25/25 Hist ory citrate)-vitamin D3 5 mcg (200 unit) tablet (Citracal Regular) levothyroxine 88 mcg tablet 88 mcg PO DAILY 03/25/25 03/25/25 History Have you fallen in the past year?: No PFS Medical History (Updated 03/25/25 @ 10:[address] Erma Quiros MD) Vertigo Muscle cramps Preventative health care Elevated liver enzymes Graves disease Surgical History S/P wisdom tooth extraction Family History Father Heart disease Mother No problems noted. 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 [employer] current occupational exposures/hazards: No history of recent travel: No Smoking Status: Former smoker second hand exposure: No alcohol intake: current alcohol intake frequency: holidays/special occasions only Alcohol type: hard liquor substance use type: does not use what type of physical activity do you participate in: none frequency: 3-4 times per week seatbelt use: always do you feel safe at home: Yes additional social history: Javon Barry- Boyfriend HPI HPI Chief Complaint: ANNUAL Details: LANCE ANGELES, is a 59 F who presents to the office today for her annual visit. Has been relatively stable. Was seen for an acute visit for joint pain, she states that this is chronic and measures recommended at that visit have not been helpful. Also reports occasional/intermitt ent cramps, she states that she stays very well-hydrated and only drinks about a cup and a half of coffee daily. Chronic episodes of vertigo, following initial episode, was not evaluated by physical therapy/vestibular clinic. Otherwise, has been relatively stable. Initial and repeat blood pressure elevated, no known history of hypertension however chart review shows chronically elevated blood pressure which has been progressively worsening. Follows up with [facility]. Last colonoscopy was age at age 51 and a 10-year follow-up was recommended. Also follows up with dermatology. ROS Const Constitutional: No body ache, chills, excessive sweating, fatigue, fever(s), frequent falls, headache(s), snoring, weight change, sleep problems, abnormal sleep pattern or change in appetite Eyes Eyes: No blurry vision, change in vision, floaters, visual disturbances, eye pain or Light sensitivity ENT ENT: No abnormal hearing, ear or mastoid pain, tinnitus, balance problems, nosebleed/epistaxis, nasal congestion, headache(s), neck pain or sore throat Resp Respiratory: No cough, excessive phlegm production, pain on inspiration, shortness of breath, snoring or wheezing Cardio Cardiology: No chest pain at rest, chest pain with exertion, excessive sweating, shortness of breath, dyspnea on exertion, lightheadedness, orthopnea or palpitations Gastro GI: No abdominal pain, change in bowel habits, constipation, cramping, diarrhea, nausea/dyspepsia or vomiting Genitourinary-Female : No burning urination, painful urination, urinary inconti (more content not included)... Normal [facility] LDL calc ser/plasOrdered By: Erma Quiros on 03-25-2025 Cholesterol in LDL [Mass/Vol] 107 mg/dL [facility] Comment on above: Lbryolsbrw=406-274 m g/dL & Higher Myyd=134 mg/dL or greater Laboratory - Chemistry and C hemistry - challengeOrdered By: Erma Quiros on 03-25-2025 AST [Catalytic activity/Vol] 42 U/L High <32 [facility] Lipid Profileon 03-25-2025 CHOL:HDL 3.69 Normal [facility] Comment on above: Performed By: #### L 500.4100, L100.0100, L500.4050 #### [facility] [address] [place], [address] Cholesterol [Mass/Vol] 174 mg/dL Normal <=200 [facility] Comment on above: Result Comment: Chol esterol level, Desirable <200 mg/dL Borderline high cholesterol 200-239 mg/dL High cholesterol >=240 mg/dL Recommendations of the NCEP Adult Treatment Panel for the following risk-cutoff thresholds for the [place] population. Performed By: #### L 500.4100, L100.0100, L500.4050 #### [facility] [address] [place], [address] Cholesterol in HDL [Mass/Vol] 47 mg/dL Normal [facility] Comment on above: Result Comment: Jenelle onal Cholesterol Education Program (NCEP) guidelines: <40 mg/dL: Low HDL-cholesterol (major risk factor for CHD) >= 60 mg/dL: High HDL-cholesterol (negative risk factor for CHD) HDL-cholesterol is affected by a number of factors, e.g. smoking, exercise, hormones, sex and age. Performed By: #### L 500.4100, L100.0100, L500.4050 #### [facility] [address] [place], [address] Cholesterol in LDL [Mass/Vol] 107 mg/dL Normal [facility] Comment on above: Result Comment: Bord qcymld=504-727 mg/dL Higher Eaqq=447 mg/dL or greater Performed By: #### L 500.4100, L100.0100, L500.4050 #### [facility] [address] [place], [address] Cholesterol in VLDL [Mass/Vol] 20 mg/dL Normal 5-40 [facility] Comment on above: Performed By: #### L 500.4100, L100.0100, L500.4050 #### [facility] [address] [place], [address] Triglyceride [Mass/Vol] 100 mg/dL Normal [facility] Comment on above: Result Comment: The drugs N-Acetylcysteine and Metamizole may falsely depress this assay. Normal range: <150 mg/dL Borderline High: 150-199 mg/dL High: 200-499 mg/dL Very High: >500 mg/dL Performed By: #### L 500.4100, L100.0100, L500.4050 #### [facility] [address] [place], [address] MCV (mean corpuscular volume ) determinationOrdered By: Erma Quiros on 03-25-2025 MCV (RBC) [Entitic vol] 90.0 fL 81-99 [facility] Mean corpuscular hemoglobin (MCH) determinationOrdered By: Erma Quiros on 03-25-2025 MCH (RBC) [Entitic mass] 31.5 pg 27.0-32.0 [facility] Mean corpuscular hemoglobin concentration (MCHC) determinationOrdered By: Erma Quiros on 03-25-2025 MCHC (RBC) [Mass/Vol] 35.0 g/dL 32-36 [facility] Mean platelet volume determi nationOrdered By: Erma Quiros on 03-25-2025 Platelet mean volume (Bld) [Entitic vol] 11.1 fL 6.2-12.0 [facility] Monocyte percentageOrdered B y: Erma Quiros on 03-25-2025 Monocytes/100 WBC (Bld) 7.0 % 0-10 [facility] Neutrophil percentageOrdered By: lbstrongmichelle Quiros on 03-25-2025 Neutrophils/100 WBC (Bld) 57.4 % 47-70 [facility] Nucleated red blood cell per centageOrdered By: wagner Quiros on 03-25-2025 Nucleated RBC/100 WBC (Bld) [Ratio] 0 % 0-5 [facility] Platelet countOrdered By: Alisa Quiros on 03-25-2025 Platelets (Bld) [#/Vol] 194 10*3/uL 150-450 [facility] Potassium measurement (mass/ volume)Ordered By: Erma Quiros on 03-25-2025 Potassium (Unsp spec) [Mass/Vol] 4.1 mmol/L 3.3-5.1 [facility] RBC Auto (Bld) [#/Vol]Ordere d By: Erma Quiros on 03-25-2025 RBC (Bld) [#/Vol] 4.19 10*6/uL Low 4.2-5.4 [facility] Screening total cholesterol/ high density lipoprotein (HDL) cholesterol ratioOrdered By: Erma Quiros on 03-25-2025 Cholesterol.total/Choles terol in HDL [Mass ratio] 3.69 {ratio} [facility] Serum creatinine measurement (mass/volume)Ordered By: Erma Quiros on 03-25-2025 Creatinine [Mass/Vol] 0.67 mg/dL Low 0.70-1.20 [facility] Serum globulin measurementOr dered By: Erma Quiros on 03-25-2025 Globulin (S) [Mass/Vol] 2.3 g/dL 2.2-4.2 [facility] Serum glucose measurement (m ass/volume)Ordered By: Erma Quiros on 03-25-2025 Glucose [Mass/Vol] 114 mg/dL High 70-99 [facility] Serum or plasma alanine ha otransferase (ALT) measurementOrdered By: Erma Quiros on 03-25-2025 ALT [Catalytic activity/Vol] 52 U/L High <35 [facility] Serum or plasma albumin adiel urement (mass/volume)Ordered By: Erma Quiros on 03-25-2025 Albumin [Mass/Vol] 4.4 g/dL 3.5-5.0 [facility] Serum or plasma albumin/glob ulin mass ratioOrdered By: Erma Quiros on 03-25-2025 Albumin/Globulin [Mass ratio] 1.9 {ratio} 0.9-2.4 [facility] Serum or plasma alkaline mateo sphatase measurementOrdered By: Erma Quiros on 03-25-2025 ALP [Catalytic activity/Vol] 53 U/L 35-104 [facility] Serum or plasma calcium adiel urement (mass/volume)Ordered By: Erma Quiros on 03-25-2025 Calcium [Mass/Vol] 9.7 mg/dL 7.6-11.0 [facility] Serum or plasma cholesterol in HDL measurement (mass/volume)Ordered By: Erma Quiros on 03-25-2025 Cholesterol in HDL [Mass/Vol] 47 mg/dL >40 [facility] Comment on above: National Cholesterol Education Program (NCEP) guidelines:<40 mg/dL: Low HDL-cholesterol (major risk factor for CHD)>= 60 mg/dL: High HDL-cholesterol (negative risk factor for CHD)HDL-cholesterol is affected by a number of factors, e.g. smoking, exercise, hormones, sex and age. Serum or plasma cholesterol measurement (mass/volume)Ordered By: Erma Quiros on 03-25-2025 Cholesterol [Mass/Vol] 174 mg/dL <201 [facility] Comment on above: Cholesterol level, D esirable <200 mg/dLBorderline high cholesterol 200-239 mg/dLHigh cholesterol >=240 mg/dLRecommendations of the NCEP Adult Treatment Panel for the following risk-cutoff thresholds for the [place] population. Serum or plasma urea nitroge n measurement (mass/volume)Ordered By: Erma Quiros 03-25-2025 Urea nitrogen [Mass/Vol] 10 mg/dL 4-19 [facility] Sodium levelOrdered By: Rene Quiros on 03-25-2025 Sodium [Moles/Vol] 142 mmol/L 133-145 [facility] Total proteinOrdered By: Lane Quiros on 03-25-2025 Protein [Mass/Vol] 6.7 g/dL 5.9-8.4 [facility] Triglycerides measurementOrd ered By: Erma Quiros on 03-25-2025 Triglyceride [Mass/Vol] 100 mg/dL <199 [facility] Comment on above: The drugs N-Acetylcy steine and Metamizole may falsely depress this assay. Normal range: <150 mg/dLBorderline High: 150-199 mg/dLHigh: 200-499 mg/dLVery High: >500 mg/dL White blood cell (WBC) count Ordered By: Erma Quiros on 03-25-2025 WBC (Bld) [#/Vol] 4.4 10*3/uL 4.4-11.0 [facility] Comprehensive Metabolic Prof ilon 10-06-2024 Albumin [Mass/Vol] 3.8 g/dL Normal 3.2-5.0 [facility] Comment on above: Performed By: #### L 501.9520, L506.1000, L500.4050, L509.1000 #### [facility] [address] [place], [address] Albumin/Globulin [Mass ratio] 1.4 {ratio} Normal 0.9-2.4 [facility] Comment on above: Performed By: #### L 501.9520, L506.1000, L500.4050, L509.1000 #### [facility] [address] [place], [address] ALK P 53 U/L Normal 45-117 [facility] Comment on above: Performed By: #### L 501.9520, L506.1000, L500.4050, L509.1000 #### [facility] [address] [place], [address] ALT [Catalytic activity/Vol] 51 U/L Normal 13-56 [facility] Comment on above: Performed By: #### L 501.9520, L506.1000, L500.4050, L509.1000 #### [facility] [address] [place], [address] AST [Catalytic activity/Vol] 32 U/L Normal 15-37 [facility] Comment on above: Performed By: #### L 501.9520, L506.1000, L500.4050, L509.1000 #### [facility] [address] [place], [address] Bilirubin [Mass/Vol] 0.40 mg/dL Normal 0.20-1.00 [facility] Comment on above: Result Comment: For patients on eltrombopag therapy, use of Dimension [place] TBIL is not recommended. Performed By: #### L 501.9520, L506.1000, L500.4050, L509.1000 #### [facility] [address] [place], [address] BUN/CRE 15.4 RATIO Normal 10-20 [facility] Comment on above: Performed By: #### L 501.9520, L506.1000, L500.4050, L509.1000 #### [facility] [address] [place], [address] CA,Total 9.2 mg/dL Normal 8.5-10.1 [facility] Comment on above: Performed By: #### L 501.9520, L506.1000, L500.4050, L509.1000 #### [facility] [address] [place], [address] Chloride [Moles/Vol] 110 mmol/L High 98-107 [facility] Comment on above: Performed By: #### L 501.9520, L506.1000, L500.4050, L509.1000 #### [facility] [address] [place], [address] CO2 [Moles/Vol] 26.0 mmol/L Normal 21.0-32.0 [facility] Comment on above: Performed By: #### L 501.9520, L506.1000, L500.4050, L509.1000 #### [facility] [address] [place], [address] Creatinine [Mass/Vol] 0.71 mg/dL Normal 0.55-1.02 [facility] Comment on above: Result Comment: The validity of the calculated GFR GFRAA in patients over 70 years has not been determined. Clinical correlation is essential. Performed By: #### L 501.9520, L506.1000, L500.4050, L509.1000 #### [facility] [address] [place], [address] EST GFR - AA 108 mL/min Normal >60 [facility] Comment on above: Result Comment: Afri can Bulgarian GFR Calc Performed By: #### L 501.9520, L506.1000, L500.4050, L509.1000 #### [facility] [address] [place], [address] GAP 5 Normal 5-15 [facility] Comment on above: Performed By: #### L 501.9520, L506.1000, L500.4050, L509.1000 #### [facility] [address] [place], [address] GFR/1.73 sq M.predicted among non-blacks MDRD (S/P/Bld) [Vol rate/Area] 89 mL/min/{1.73_m2} Normal >60 [facility] Comment on above: Result Comment: Non- GFR Calc Performed By: #### L 501.9520, L506.1000, L500.4050, L509.1000 #### [facility] [address] [place], [address] Globulin (S) [Mass/Vol] 2.8 g/dL Normal 2.2-4.2 [facility] Comment on above: Performed By: #### L 501.9520, L506.1000, L500.4050, L509.1000 #### [facility] [address] [place], [address] Glucose [Mass/Vol] 110 mg/dL High 74-106 [facility] Comment on above: Result Comment: Fast ing Glucose result from 100 to 125 mg/dL suggests IMPAIRED HOMEOSTASIS per A.D.A. criteria. Performed By: #### L 501.9520, L506.1000, L500.4050, L509.1000 #### [facility] [address] [place], [address] Potassium [Moles/Vol] 4.2 mmol/L Normal 3.5-5.1 [facility] Comment on above: Performed By: #### L 501.9520, L506.1000, L500.4050, L509.1000 #### [facility] [address] [place], [address] Sodium [Moles/Vol] 142 mmol/L Normal 136-145 [facility] Comment on above: Performed By: #### L 501.9520, L506.1000, L500.4050, L509.1000 #### [facility] [address] [place], [address] T PROT 6.6 g/dL Normal 6.4-8.2 [facility] Comment on above: Performed By: #### L 501.9520, L506.1000, L500.4050, L509.1000 #### [facility] [address] [place], [address] Urea nitrogen [Mass/Vol] 11 mg/dL Normal 7-18 [facility] Comment on above: Performed By: #### L 501.9520, L506.1000, L500.4050, L509.1000 #### [facility] [address] [place], [address] PTHINon 11-25-2024 PTH 25.8 pg/mL Normal 18.4-80.1 [facility] Comment on above: Performed By: #### L 501.9520, L506.1000, L500.4050, L509.1000 #### [facility] [address] [place], [address] Thyroid Stim Hormone (TSH)on 10-06-2024 TSH 2.350 uIU/mL Normal 0.358-3.740 [facility] Comment on above: Performed By: #### L 501.9520, L506.1000, L500.4050, L509.1000 #### [facility] [address] [place], [address] Vitamin D,25 Hydroxyon 10-06 Vitamin D 25-OH 81.1 ng/mL Normal [facility] Comment on above: Result Comment: Aziza min D 25(OH) Status Range Deficiency <20 ng/mL (50nmol/L) Insufficiency 20 - 30 ng/mL (50 - 75 nmol/L) Sufficiency 30 - 100 ng/mL (75 - 250 nmol/L) Toxicity >100 ng/mL (>250 nmol/L) Performed By: #### L 501.9520, L506.1000, L500.4050, L509.1000 #### [facility] [address] [place], [address] SCRN MAMM (CAD)W/SRIKANTH BILATo n 09-02-2024 SCRN MAMM (CAD)W/SRIKANTH BILAT [facility] [address] [place] [address] SCRN MAMM (CAD)W/SRIKANTH BILAT MR#: [id number] Acct: [id number] Name: LANCE ANGELES Rep #: [id number] : 1965 F 59 From: Handy yoo MD PCP: Dr. Erma Quiros MD Status: REG [facility] Study: SCRN MAMM (CAD)W/SRIKANTH BILAT Date of Exam: 08/13 01/05 Exam# [id number] Ordering Dr: Marisel Telles MANAGER [employer] MANAGER [employer] -C [id number] MAMMOGRAPHY - BILATERAL SCREENING REASON FOR EXAM: Female, 59 years old. Routine annual screening examination. PERTINENT HISTORY: Aunt with breast cancer. TECHNIQUE: Digital bilateral breast srikanth (3D mammographic acquisition) in the CC and MLO projections. 2-D mediolateral oblique (MLO) and craniocaudad (CC) views of both breasts were obtained. CAD: Full Field Digital Mammography with Computer Added Detection was performed. COMPARISON: Comparison is made with prior study August 31, 2023 and May 18, 2021. FINDINGS: Breast Composition: The breasts are heterogeneously dense, which may obscure small masses. There are no dominant masses or suspicious calcifications. Stable bilateral fat containing axillary lymph nodes. No other significant abnormalities are identified. There has been no significant change since the prior study. BI/SCRN MAMM (CAD)W/SRIKANTH BILAT IMPRESSION: Stable bilateral screening mammogram. Yearly follow-up mammogram recommended. (A) ASSESSMENT CATEGORY: BIRADS Category 2: Benign. A letter regarding these results will be sent to the patient by the facility within 30 days. Approximately 10% of breast cancers are not detected by mammography. A normal mammogram should not delay biopsy of a clinically suspicious abnormality. [id number] Electronically Signed: Handy Gonzalez MD at 8:52 EDT , CC: LUIS FERNANDO Telles; Dr. Erma Quiros MD Structural Engineering Drafting Officer: Signed Normal [facility] Absolute lymphocyte countOrd ered By: Erma Quiros on 11-07-2023 Lymphocytes Auto (Unsp spec) [#/Vol] 1.73 10*3/uL 0.83-4.51 [facility] Basophil percentageOrdered B y: Erma Quiros on 11-07-2023 Basophils/100 WBC (Bld) 1.1 % 0-1 [facility] Eosinophils/100 WBC (Bld) 1.4 % 0-5 [facility] Neutrophils (Bld) [#/Vol] 3.4 10*3/uL 2.0-7.7 [facility] Neutrophils/100 WBC (Bld) 59.0 % 47-70 [facility] WBC (Bld) [#/Vol] 5.7 10*3/uL 4.4-11.0 [facility] Blood erythrocytes count (nu mber/volume)Ordered By: Erma Quiros on 11-07-2023 RBC (Bld) [#/Vol] 4.31 10*6/uL 4.2-5.4 [facility] Blood hemoglobin measurement (mass/volume)Ordered By: Erma Quiros on 11-07-2023 Hemoglobin (Bld) [Mass/Vol] 13.2 g/dL 12.0-15.0 [facility] Blood lymphocytes/100 leukoc ytesOrdered By: Erma Quiros on 11-07-2023 Lymphocytes/100 WBC (Bld) 30.5 % 19-41 [facility] Blood monocytes/100 leukocyt esOrdered By: Erma Quiros on 11-07-2023 Monocytes/100 WBC (Bld) 7.6 % 0-10 [facility] Blood platelet mean volumeOr dered By: Erma Quiros on 11-07-2023 Platelet mean volume (Bld) [Entitic vol] 10.6 fL 6.2-12.0 [facility] Determination of erythrocyte mean corpuscular volume (MCV)Ordered By: Erma Quiros on 11-07-2023 MCV (RBC) [Entitic vol] 91.2 fL 81-99 [facility] Hematocrit Auto (Bld) [Volum e fraction]Ordered By: Erma Quiros on 11-07-2023 Hematocrit (Bld) [Volume fraction] 39.3 % 37-47 [facility] - Hematology and Cell countsOrdered By: Erma Quiros on 11-07-2023 Erythrocyte distribution width (RBC) [Entitic vol] 40.2 fL 35.1-43.9 [facility] Erythrocyte distribution width (RBC) [Ratio] 12.0 % 11.6-14.6 [facility] Immature granulocytes/100 WBC (Bld) 0.400 % 0.0-0.9 [facility] Comment on above: IG% - Immature Granu locytes (promyelocytes, myelocytes and metamyelocytes) > 1% indicates that a LEFT SHIFT is Present. MCH (RBC) [Entitic mass] 30.6 pg 27.0-32.0 [facility] Nucleated RBC/100 WBC (Bld) [Ratio] 0 % 0-5 [facility] MCHC Auto (RBC) [Mass/Vol]Or dered By: Erma Quiros on 11-07-2023 MCHC (RBC) [Mass/Vol] 33.6 g/dL 32-36 [facility] Platelets bldOrdered By: Lane Quiros on 11-07-2023 Platelets (Bld) [#/Vol] 222 10*3/uL 150-450 [facility] Basophil percentageOrdered B y: Bobby Torres on 10-15-2023 Bilirubin [Mass/Vol] 0.50 mg/dL 0.20-1.00 [facility] Comment on above: For patients on eltr ombopag therapy, use of Dimension [place] TBIL is not recommended. Chloride [Moles/Vol] 110 mmol/L 98-107 [facility] Cholesterol [Mass/Vol] 147 mg/dL <200 [facility] Comment on above: <200 mg/dL Desirable 200-240 mg/dL Borderline >240 mg/dL High Risk Glucose [Mass/Vol] 109 mg/dL 74-106 [facility] Comment on above: Fasting Glucose resu lt from 100 to 125 mg/dL suggests IMPAIRED HOMEOSTASIS per A.D.A. criteria. Potassium [Moles/Vol] 4.0 mmol/L 3.5-5.1 [facility] Protein [Mass/Vol] 6.5 g/dL 6.4-8.2 [facility] Sodium [Moles/Vol] 143 mmol/L 136-145 [facility] Triglyceride [Mass/Vol] 126 mg/dL <199 [facility] Comment on above: The drugs N-Acetylcy steine and Metamizole may falsely depress this assay.Serum Triglycerides Reference Interval Normal <150 mg/dL Borderline high 150 - 199 mg/dL High 200 - 499 mg/dL Very High > or = 500 mg/dL Laboratory - Chemistry and C hemistry - challengeOrdered By: Bobby Torres on 10-15-2023 ALP [Catalytic activity/Vol] 56 U/L 45-117 [facility] ALT [Catalytic activity/Vol] 47 U/L 13-56 [facility] CO2 [Moles/Vol] 27.0 mmol/L 21.0-32.0 [facility] Globulin (S) [Mass/Vol] 2.8 g/dL 2.2-4.2 [facility] Magnesium [Mass/Vol] 2.2 mg/dL 1.6-2.6 [facility] Urea nitrogen/Creatinine [Mass ratio] 9.1 mg/mg 10-20 [facility] No Panel InformationOrdered By: Bobby Torres on 10-15-2023 Estimated GFR (MDRD) Amer 119 mL/min >60 [facility] Comment on above: GFR Calc Estimated GFR (MDRD) Non-Af Amer 99 mL/min >60 [facility] Comment on above: Non- GFR Calc Thyroid Stimulating Hormone (TSH) 0.25 uIU/mL 0.358-3.74 [facility] Vitamin D 25-Hydroxy 82.8 ng/mL [facility] Comment on above: Vitamin D 25(OH) Sta tus Range Deficiency <20 ng/mL (50nmol/L) Insufficiency 20 - 30 ng/mL (50 - 75 nmol/L) Sufficiency 30 - 100 ng/mL (75 - 250 nmol/L) Toxicity >100 ng/mL (>250 nmol/L) Serum or plasma albumin adiel urement (mass/volume)Ordered By: Bobby Torres on 10-15-2023 Albumin [Mass/Vol] 3.7 g/dL 3.2-5.0 [facility] Serum or plasma albumin/glob ulin mass ratioOrdered By: Bobby Torres on 10-15-2023 Albumin/Globulin [Mass ratio] 1.3 {ratio} 0.9-2.4 [facility] Serum or plasma calcium adiel urement (mass/volume)Ordered By: Bobby Torres on 10-15-2023 Calcium [Mass/Vol] 9.1 mg/dL 8.5-10.1 [facility] Serum or plasma cholesterol in HDL measurement (mass/volume)Ordered By: Bobby Torres on 10-15-2023 Cholesterol in HDL [Mass/Vol] 52 mg/dL >40 [facility] Comment on above: The drugs N-Acetylcy steine and Metamizole may falsely depress this assay. Reference Range HDL <40 mg/dL Low HDL Cholesterol HDL >or= 60 mg/dL High HDL Cholesterol Serum or plasma cholesterol in VLDL measurement (mass/volume)Ordered By: Bobby Torres on 10-15-2023 Cholesterol in VLDL [Mass/Vol] 25 mg/dL 5-40 [facility] Serum or plasma creatinine m easurement (mass/volume)Ordered By: Bobby Torres on 10-15-2023 Creatinine [Mass/Vol] 0.66 mg/dL 0.55-1.02 [facility] Comment on above: The validity of the calculated GFR & GFRAA in patients over 70 years has not been determined. Clinical correlation is essential. Serum or plasma low density lipoprotein (LDL) cholesterol measurement (mass/volume)Ordered By: Bobby Torres on 10-15-2023 Cholesterol in LDL [Mass/Vol] 70 mg/dL 0-130 [facility] Serum or plasma urea nitroge n measurement (mass/volume)Ordered By: Bobby Torres on 10-15-2023 Urea nitrogen [Mass/Vol] 6 mg/dL 7-18 [facility] Thin prep Papanicolaou smear with manual screeningOrdered By: Bobby Torres on 10-15-2023 Thin prep Papanicolaou smear with manual screening 26 U/L 15-37 [facility] Thin prep Papanicolaou smear with manual screening 6 5-15 [facility] Cervical or vagninal specime n microscopic examination by cytology stain (reported asOrdered By: Maria Del Carmen Herndon on 09-13-2023 Cytology report Cyto stain Doc (Cvx/Vag) Comment . [facility] Comment on above: The Pap smear is a s creening test designed to aid in thedetection of premalignant and malignant conditions of theuterine cervix. It is not a diagnostic procedure andshould not be used as the sole means of detecting cervicalcancer. Both false-positive and false-negative reports dooccur. Detection in cervical specim en of any of human papilloma virus (HPV) 16, 18, 31, 33,Ordered By: Maria Del Carmen Herndon on 09-13-2023 HPV 16+18+31+33+35+39+45+51+ 52+56+58+59+66+68 DNA Probe+sig amp Ql (Cvx) Negative Negative [facility] Comment on above: This nucleic acid am plification test detects fourteen high-risk HPV types (16,18,31,33,35,39,45,51,52,56,58,59,66,68)without differentiation. Laboratory - CytologyOrdered By: Maria Del Carmen Herndon on 09-13-2023 [employer] Cyto stain Nom (Cvx/Vag) [ID] Comment . [facility] Comment on above: Shelby Evans [employer] hnologist (ASCP) Laboratory - Miscellaneous t estsOrdered By: Maria Del Carmen Herndon on 09-13-2023 Service comment (Unsp spec) [Interp] Comment . [facility] Comment on above: This liquid based Th inPrep(R) pap test was screened withthe use of an image guided system. Service comment (Unsp spec) [Interp] . . [facility] Liquid-based cerv Pap + CT/G C by MARIIA w reflex to high-risk HPV for ASCUSOrdered By: Maria Del Carmen Herndon on 09-13-2023 Cytology report Cyto stain.thin prep Doc (Cvx/Vag) Comment . [facility] Comment on above: Criteria not met, HP V Genotype not performed.Performed at: - [address] [id number] Director: Zully Osborn MD, Phone: [phone] at: =[facility] [id number] Director: Zully Osborn MD, Phone: [phone] No Panel InformationOrdered By: Maira Del Carmen Herndon on 09-13-2023 Pap Smear QC Review Comment . [facility] Comment on above: Janes Monk ytotechnologist ([facility]) Pathology report final diagnosis Narrative Comment . [facility] Comment on above: NEGATIVE FOR INTRAEP ITHELIAL LESION OR MALIGNANCY.THIS SPECIMEN WAS RESCREENED PART OF OUR TRANSPORTATION SECURITY SCREENER PROGRAM. Basophil percentageOrdered B y: Bobby Torres on 02-23-2023 Bilirubin [Mass/Vol] 0.30 mg/dL 0.20-1.00 [facility] Comment on above: For patients on eltr ombopag therapy, use of Dimension [place] TBIL is not recommended. Chloride [Moles/Vol] 110 mmol/L 98-107 [facility] Glucose [Mass/Vol] 127 mg/dL 74-106 [facility] Comment on above: Fasting Glucose resu lt greater than or equal to 126 mg/dL suggests DIABETES MELLITUS per A.D.A. criteria. Potassium [Moles/Vol] 4.3 mmol/L 3.5-5.1 [facility] Protein [Mass/Vol] 6.8 g/dL 6.4-8.2 [facility] Sodium [Moles/Vol] 141 mmol/L 136-145 [facility] Laboratory - Chemistry and C hemistry - challengeOrdered By: Bobby Torres on 02-23-2023 ALP [Catalytic activity/Vol] 61 U/L 45-117 [facility] ALT [Catalytic activity/Vol] 46 U/L 13-56 [facility] CO2 [Moles/Vol] 27.0 mmol/L 21.0-32.0 [facility] Globulin (S) [Mass/Vol] 3.0 g/dL 2.2-4.2 [facility] Urea nitrogen/Creatinine [Mass ratio] 13.5 mg/mg 10-20 [facility] No Panel InformationOrdered By: Bobby Torres on 02-23-2023 Estimated GFR (MDRD) Amer 93 mL/min >60 [facility] Comment on above: GFR Calc Estimated GFR (MDRD) Non-Af Amer 77 mL/min >60 [facility] Comment on above: Non- GFR Calc Thyroid Stimulating Hormone (TSH) 1.32 uIU/mL 0.358-3.74 [facility] Serum or plasma albumin adiel urement (mass/volume)Ordered By: Bobby Torres on 02-23-2023 Albumin [Mass/Vol] 3.8 g/dL 3.2-5.0 [facility] Serum or plasma albumin/glob ulin mass ratioOrdered By: Bobbykym Torres on 02-23-2023 Albumin/Globulin [Mass ratio] 1.3 {ratio} 0.9-2.4 [facility] Serum or plasma calcium adiel urement (mass/volume)Ordered By: Bobby Torres on 02-23-2023 Calcium [Mass/Vol] 9.1 mg/dL 8.5-10.1 [facility] Serum or plasma creatinine m easurement (mass/volume)Ordered By: Bobby Torres on 02-23-2023 Creatinine [Mass/Vol] 0.81 mg/dL 0.55-1.02 [facility] Comment on above: The validity of the calculated GFR & GFRAA in patients over 70 years has not been determined. Clinical correlation is essential. Serum or plasma urea nitroge n measurement (mass/volume)Ordered By: Bobby Torres on 02-23-2023 Urea nitrogen [Mass/Vol] 11 mg/dL 7-18 [facility] Thin prep Papanicolaou smear with manual screeningOrdered By: Bobby [facility] on 02-23-2023 Thin prep Papanicolaou smear with manual screening 23 U/L 15-37 [facility] Thin prep Papanicolaou smear with manual screening 4 5-15 [facility] Basophil percentageon 2021 Bilirubin [Mass/Vol] 0.30 mg/dL 0.20-1.00 [facility] Work Phone: Comment on above: For patients on eltr ombopag therapy, use of Dimension [place] TBIL is not recommended. Chloride [Moles/Vol] 107 mmol/L 98-107 [facility] Work Phone: Cholesterol [Mass/Vol] 151 mg/dL <200 [facility] Work Phone: Comment on above: <200 mg/dL Desirable 200-240 mg/dL Borderline >240 mg/dL High Risk Glucose [Mass/Vol] 111 mg/dL 74-106 [facility] Work Phone: Comment on above: Fasting Glucose resu lt from 100 to 125 mg/dL suggests IMPAIRED HOMEOSTASIS per A.D.A. criteria. Potassium [Moles/Vol] 3.6 mmol/L 3.5-5.1 [facility] Work Phone: Protein [Mass/Vol] 6.9 g/dL 6.4-8.2 [facility] Work Phone: Sodium [Moles/Vol] 142 mmol/L 136-145 [facility] Work Phone: Triglyceride [Mass/Vol] 61 mg/dL <199 [facility] Work Phone: Comment on above: The drugs N-Acetylcy steine and Metamizole may falsely depress this assay.Serum Triglycerides Reference Interval Normal <150 mg/dL Borderline high 150 - 199 mg/dL High 200 - 499 mg/dL Very High > or = 500 mg/dL Laboratory - Chemistry and C hemistry - challengeon 07-25-2022 ALP [Catalytic activity/Vol] 57 U/L 45-117 [facility] Work Phone: ALT [Catalytic activity/Vol] 40 U/L 13-56 [facility] Work Phone: CO2 [Moles/Vol] 27.0 mmol/L 21.0-32.0 [facility] [facility] Work Phone: Free T4 [Mass/Vol] 1.19 ng/dL 0.76-1.46 [facility] Work Phone: Globulin (S) [Mass/Vol] 3.2 g/dL 2.2-4.2 [facility] Work Phone: Urea nitrogen/Creatinine [Mass ratio] 14.6 mg/mg 10-20 [facility] Work Phone: No Panel Informationon 07-25 Estimated GFR (MDRD) Amer 114 mL/min >60 [facility] Work Phone: Comment on above: GFR Calc Estimated GFR (MDRD) Non-Af Amer 95 mL/min >60 [facility] Work Phone: Comment on above: Non- GFR Calc Free Triiodothyronine (T3) pg/dL 3.2 pg/mL 2.18-3.98 [facility] Work Phone: Thyroid Stimulating Hormone (TSH) 0.46 uIU/mL 0.358-3.74 [facility] Work Phone: Serum or plasma albumin adiel urement (mass/volume)on 07-25-2022 Albumin [Mass/Vol] 3.7 g/dL 3.2-5.0 [facility] Work Phone: Serum or plasma albumin/glob ulin mass ratioon 07-25-2022 Albumin/Globulin [Mass ratio] 1.2 {ratio} 0.9-2.4 [facility] Work Phone: Serum or plasma calcium adiel urement (mass/volume)on 07-25-2022 Calcium [Mass/Vol] 9.2 mg/dL 8.5-10.1 [facility] Work Phone: Serum or plasma cholesterol in HDL measurement (mass/volume)on 07-25-2022 Cholesterol in HDL [Mass/Vol] 58 mg/dL >40 [facility] Work Phone: Comment on above: The drugs N-Acetylcy steine and Metamizole may falsely depress this assay. Reference Range HDL <40 mg/dL Low HDL Cholesterol HDL >or= 60 mg/dL High HDL Cholesterol Serum or plasma cholesterol in VLDL measurement (mass/volume)on 07-25-2022 Cholesterol in VLDL [Mass/Vol] 12 mg/dL 5-40 [facility] Work Phone: Serum or plasma creatinine m easurement (mass/volume)on 07-25-2022 Creatinine [Mass/Vol] 0.68 mg/dL 0.55-1.02 [facility] Work Phone: Comment on above: The validity of the calculated GFR & GFRAA in patients over 70 years has not been determined. Clinical correlation is essential. Serum or plasma low density lipoprotein (LDL) cholesterol measurement (mass/volume)on 07-25-2022 Cholesterol in LDL [Mass/Vol] 81 mg/dL 0-130 [facility] Work Phone: Serum or plasma urea nitroge n measurement (mass/volume)on 07-25-2022 Urea nitrogen [Mass/Vol] 10 mg/dL 7-18 [facility] Work Phone: Thin prep Papanicolaou smear with manual screeningon 07-25-2022 Thin prep Papanicolaou smear with manual screening 19 U/L 15-37 [facility] Work Phone: Thin prep Papanicolaou smear with manual screening 8 5-15 [facility] Work Phone: Vital Signs Date Time Vital Sign Value Performing Clinician Faci lity 06-16-2025 12:56-0400 Body height 160.[address] Erma Quiros MD Work Phone: [facility] 06-16-2025 12:56-0400 Body mass index (BMI) [Ratio] 29.2 kg/m2 Dr. Erma Quiros MD Work Phone: [facility] 06-16-2025 12:56-0400 Body weight 74.[address] Erma Quiros MD Work Phone: [facility] 06-16-2025 12:56-0400 Diastolic blood pressure 83 mm[Hg] Dr. Erma Quiros MD Work Phone: [facility] 06-16-2025 12:56-0400 Heart rate 74 /min Dr. Erma Quiros MD Work Phone: [facility] 06-16-2025 12:56-0400 SaO2% (BldA) [Mass fraction] 95 % Dr. Erma Quiros MD Work Phone: [facility] 06-16-2025 12:56-0400 Systolic blood pressure 133 mm[Hg] Dr. Erma Quiros MD Work Phone: [facility] 03-25-2025 08:13-0400 Body height 160.[address] Erma Quiros MD Work Phone: [facility] 03-25-2025 08:13-0400 Body mass index (BMI) [Ratio] 30.9 kg/m2 Dr. Erma Quiros MD Work Phone: [facility] 03-25-2025 08:13-0400 Body temperature 98.2 [degF] Dr. Erma Quiros MD Work Phone: [facility] 03-25-2025 08:13-0400 Body weight 79.[address] Erma Quiros MD Work Phone: [facility] 03-25-2025 08:13-0400 Diastolic blood pressure 80 mm[Hg] Dr. Erma Quiros MD Work Phone: [facility] 03-25-2025 08:13-0400 Heart rate 90 /min Dr. Erma Quiros MD Work Phone: [facility] 03-25-2025 08:13-0400 Respiratory rate 18 /min Dr. Erma Quiros MD Work Phone: [facility] 03-25-2025 08:13-0400 SaO2% (BldA) [Mass fraction] 95 % Dr. Erma Quiros MD Work Phone: [facility] 03-25-2025 08:13-0400 Systolic blood pressure 140 mm[Hg] Dr. Erma Quiros MD Work Phone: [facility] 11-07-2023 14:24-0500 Body height 160.[address] Mandeep Segura Work Phone: [facility] 11-07-2023 14:24-0500 Body mass index (BMI) [Ratio] 28.9 kg/m2 Dr. Mandeep Segura Work Phone: [facility] 11-07-2023 14:24-0500 Body temperature 97.2 [degF] Dr. Mandeep Segura Work Phone: [facility] 11-07-2023 14:24-0500 Body weight 74.[address] Mandeep Segura Work Phone: 3(890)945-095386 [place] [address] 11-07-2023 14:24-0500 Diastolic blood pressure 60 mm[Hg] Dr. Mandeep Segura Work Phone: 9(475)504-823986 [place] [address] 11-07-2023 14:24-0500 Heart rate 74 /min Dr. Mandeep Segura Work Phone: 0(463)357-716887 [place] [address] 11-07-2023 14:24-0500 Respiratory rate 16 /min Dr. Mandeep Segura Work Phone: 6(095)[phone] [place] [address] 11-07-2023 14:24-0500 SaO2% (BldA) [Mass fraction] 97 % Dr. Mandeep Segura Work Phone: 0(794)855-692986 [place] [address] 11-07-2023 14:24-0500 Systolic blood pressure 118 mm[Hg] Dr. Mandeep Segura Work Phone: 2(043)140-454087 [place] [address] 09-13-2023 09:01-0400 Body height 160.[address] Mandeep Segura Work Phone: 9(591)[phone] [address] 09-13-2023 09:00-0400 Body mass index (BMI) [Ratio] 29.6 kg/m2 Dr. Mandeep Segura Work Phone: 1(008)355-057286 [place] [address] 09-13-2023 09:00-0400 Body weight 75.[address] Mandeep Segura Work Phone: 2(254)599-060194 [address] 09-13-2023 09:00-0400 Diastolic blood pressure 89 mm[Hg] Dr. Mandeep Segura Work Phone: 7([phone])[phone] [address] 09-13-2023 09:00-0400 Systolic blood pressure 139 mm[Hg] Dr. Mandeep Segura Work Phone: [facility] Encounters Encounter Date Encounter Type Care Provider Facility Start: 08-10-2025 ambulatory Erma Chow ty:[facility] Start: 08-06-2025 ambulatory Erma Chow ty:[facility] Start: 06-16-2025 End: 06-16-[address] Ben Traore MD -[facility] Work Phone: Start: 06-16-2025 End: 06-16-[address] Erma Quiros MD Work Phone: -[facility] Start: 04-28-[address] Erma Quiros MD -[facility] Work Phone: Start: 04-28-2025 ambulatory Alisalbgary Chow ty:[facility] Start: 04-13-2025 End: 04-13-[address] Erma Quiros MD Work Phone: [facility] Work Phone: Start: 04-13-2025 End: 04-13-[address] Bobby Torres DO -[facility] Start: 04-13-2025 End: 04-13-2025 ambulatory Bobby Torres Facility:[facility] Start: 03-30-2025 Encounter for genera l adult medical examination without abnormal findings Erma Quiros [facility] Start: 03-25-2025 End: 03-25-[address] Erma Quiros MD -[facility] Work Phone: Start: 03-25-2025 End: 03-25-[address] Erma Quiros MD [facility] Start: 03-25-2025 End: 03-25-[address] Erma Quiros MD Work Phone: [facility] Work Phone: Start: 03-25-2025 End: 03-25-2025 ambulatory Erma Quiros Facility:[facility] Start: 10-06-2024 End: 10-06-2024 ambulatory Bobby Torres Facility:[facility] Start: 09-02-2024 End: 09-02-2024 ambulatory Claudia Spear Facility:[facility] Start: 11-07-2023 End: 11-07-[address] Mandeep Segura Work Phone: [facility] Work Phone: Start: 11-07-[address] Mandeep Segura Work Phone: [facility] Start: 11-07-2023 End: 11-07-2023 Encounter for general adult medical examination without abnormal findings Dr. Mandeep Segura Work Phone: [facility] Start: 11-07-2023 End: 11-07-[address] Mandeep Segura Work Phone: [facility] Work Phone: Start: 10-15-2023 End: 10-15-[address] Mandeep Segura Work Phone: [facility] Work Phone: Start: 10-15-2023 End: 10-15-[address] [facility] [place] Work Phone: Start: 09-13-2023 End: 09-13-[address] Mandeep Segura Work Phone: [facility] Work Phone: Start: 09-13-2023 End: 09-13-[address] [facility]ande[facility] Seg[facility] Work Phone: Start: 09-13-2023 End: 09-13-[address] Mandeep Segura Work Phone: [facility] Work Phone: Start: 08-31-2023 End: 08-31-[address] Mandeep Segura Work Phone: [facility] Work Phone: Start: 08-31-2023 End: 08-31-[address] Mandeep Segura Work Phone: [facility]-Outpatient [facility] Imaging Work Phone: Start: 08-21-2023 Non-patient / Non-visit Dr. Mandeep Segura Work Phone: [facility] Start: 08-21-[address] Mandeep [facility] Work Phone: [facility]-Cardiovascular Services Work Phone: Start: 05-25-2023 End: 05-25-2023 ambulatory [facility] Work Phone: Start: 05-25-2023 End: 05-25-2023 Patient encounter procedure [facility]iology, [facility] Work Phone: Start: 02-23-2023 End: 02-23-2023 [facility] Start: 07-25-2022 End: 07-25-[address] Mandeep Segura Work Phone: [facility] Work Phone: Start: 07-25-2022 End: 07-25-[address] Mandeep Segura [facility] Start: 06-13-2022 Non-patient / Non-visit Dr. Mandeep Segura Work Phone: [facility] Start: 06-13-[address] Mandeep [facility] Work Phone: [facility] Procedures Date Procedure Procedure Detail Performing Clinician Start: 04-28-2025 Ultrasound elastogra phy of liver Dr. Erma Quiros MD Work Phone: Start: 08-31-2023 Screening mammography Becky Segura Work Phone: Start: 05-25-2023 X-ray of cervical spine Plan of Treatment Date Care Activity Detail Author Start: 03-25-2025 CBC W Auto Different ial panel - Blood [facility] Start: 03-25-2025 Comprehensive metabo lic 2000 panel - Serum or Plasma [facility] Start: 03-25-2025 Lipid 1996 panel - Serum or Plasma [facility] Start: 11-07-2023 Patient referral [facility] Work Phone: Start: 09-13-2023 Liquid based cervica l cytology screening [facility] Alanine aminotransfe rase [Enzymatic activity/volume] in Serum or Plasma [facility] Albumin [Mass/volume ] in Serum or Plasma [facility] Alkaline phosphatase [Enzymatic activity/volume] in Serum or Plasma [facility] Anion gap in Serum or Plasma [facility] Bilirubin, total measurement [facility] BUN/Creatinine ratio [facility] Calcium [Mass/volume ] in Serum or Plasma [facility] Carbon dioxide, tota l [Moles/volume] in Central venous blood [facility] Cholesterol [Mass/vo lume] in Serum or Plasma [facility] Cholesterol in HDL [ Mass/volume] in Serum or Plasma [facility] Creatinine [Mass/vol ume] in Serum or Plasma [facility] Erythrocyte mean cor puscular volume determination [facility] Glucose [Mass/volume ] in Serum or Plasma [facility] Hematocrit [Volume F raction] of Blood [facility] Hemoglobin [Mass/volume] in Blood [facility] Leukocytes [#/volume] in Blood [facility] Low density lipoprot ein cholesterol measurement [facility] Mean corpuscular hem oglobin concentration determination [facility] Mean corpuscular hem oglobin determination [facility] Measurement of renal function [facility] Neutrophil count [facility] Neutrophil percent d ifferential count [facility] Path report.final Dx Spec [facility] Patient referral [facility] Work Phone: Platelets [#/volume] in Blood [facility] Potassium measurement [facility] Red blood cell count [facility] Red cell distributio n width determination [facility] Serum chloride measurement [facility] Sodium measurement [facility] Total cholesterol:HD L ratio measurement [facility] Total protein measurement [facility] Triglycerides measurement [facility] Urea nitrogen [Mass/ volume] in Serum or Plasma [facility] VLDL cholesterol measurement [facility] Immunizations Immunization Date Immunization Notes Care Provider [facility] 06-09-2025 Pneumococcal Vaccine PCV20 (Prevnar 20) Dr. Erma Quiros MD Work Phone: [facility] 05-22-2025 tetanus toxoid, redu gal diphtheria toxoid, and acellular pertussis vaccine, adsorbed Dr. Erma Quiros MD Work Phone: [facility] 09-01-[address] Mandeep Segura Work Phone: [facility] Payers Date Payer Category Payer Unknown [id number] 2024 Self-pay [id number] 2024 Unknown [id number] 2013 Private Health Insurance [id number] Unknown [id number] 2.16.8 [id number] Unknown [id number] 2.16.8 [id number] Unknown [id number] 2.16.8 [id number] Unknown [id number] 2.16.8 [id number] Unknown [id number] 2.16.8 [id number] Unknown [id number] 2.16.8 [id number] Unknown [id number] 2.16.8 [id number] Unknown [id number] 2.16.8 [id number] Unknown [id number] 2.16.8 [id number] Social History Date Type Detail Facility Start: 05-12-2021 End: 11-07-2023 Tobacco smoking status NMIS Unknown if ever smoked [facility] Start: 11-28-2013 Occasional [facility] Start: 11-28-2013 None [facility] Start: 11-28-2013 With Family [facility] Start: 11-28-2013 Non-smoker [facility] Start: 1965 Sex Assigned At Female [facility] Start: 12-03-2023 Tobacco smoking stat us NMIS Ex-smoker (finding) [facility] Evaluation note 03-25-2025 Note Date & Type Note Facility 03-25-2025 Evaluation note Diagnosis Onset Date Resolution Muscle cramps acute March 25, 2 025 8:07am Preventative health care acute March 25, 2025 8 :07am Vertigo acute March 25, 2025 8:07am [facility] Work Phone: Clinical Note 09-13-2023 Note Date & Type Note Facility 09-13-2023 Note [facility] Pap Smear Specimen Adequacy September 13, 2023 10:40am Comment . Satisfactory for evaluation. Endocervical and/or squamous metaplasticcells (endocervical component) are present. Comment on above: Satisfactory for dawson luation. Endocervical and/or squamous metaplasticcells (endocervical component) are present. Clinical Note 09-13-2023 Note Date & Type Note Facility 09-13-2023 Note [facility] Pap Smear Specimen Adequacy September 13, 2023 10:40am Comment . Satisfactory for evaluation. Endocervical and/or squamous metaplasticcells (endocervical component) are present. Comment on above: Satisfactory for dawson luation. Endocervical and/or squamous metaplasticcells (endocervical component) are present. Evaluation note Note Date & Type Note Facility Evaluation note No assessment information availa ble [facility] Work Phone: Evaluation note Note Date & Type Note Facility Evaluation note Diagnosis Onset Date Encounter for routine gyneco logical examination noneactive [facility] Work Phone: Evaluation note Note Date & Type Note Facility Evaluation note Diagnosis Onset Date Encounter for routine gyneco logical examination noneactive Preventative health care acu te History of Graves' disease c hronic [facility] Work Phone: Reason for referral (narrative) Note Date & Type Note Facility Reason for referral (narrative) No reason for referral information available [facility] Work Phone: Chief Complaint and Reason for Visit Chief Complaint BLOOD FLOW Chief Complaint CERVICAL SPRAIN Chief Complaint CERVICAL SPRAIN SCREENING SCREENING Chief Complaint CERVICAL SPRAIN SCREENING SCREENING Annual (PERMANENT WAVER) Reason for Visit Encounter for routin e gynecological examination Chief Complaint SCREENING SCREENING Annual (PERMANENT WAVER) Reason for Visit Encounter for routin e gynecological examination Chief Complaint SCREENING SCREENING 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 Reason for Visit Encounter for routin e gynecological examination Preventative health care History of Graves' disease Chief Complaint Admit Date ANNUAL March 25, 2025 8:07a m Reason for Visit Admit Date Muscle cramps March 25, 2025 8:07a m Preventative health care March 25, 2025 8:07am Vertigo March 25, 2025 8:07a m Chief Complaint Admit Date ANNUAL March 25, 2025 8:07a m TRANSAMINITIS April 28, 2025 8:35 am Hepatic Fibrosis June 16, 2025 12: 48pm Advance Directives No Advanced Directives Records Found Advance Directive Response Recorded Date/ Time Advance Directives No November 28, 2013 4:07pm Living Will Yes April 17, 2020 1 0:48pm Power of Radiator Cleaner Yes April 17, 2020 10:48pm Advance Directive Response Recorded Date/ Time Advance Directives No November 28, 2013 3:07pm Living Will Yes April 17, 2020 9 :48pm Power of Radiator Cleaner Yes April 17, 2020 9:48pm Advance Directive Response Recorded Date/ Time Advance Directives No November 28, 2013 4:07pm Summary Purpose Family History No Family History Records Found Additional Source Comments Goals (unrecognized section and content) Goals may be documented in a n alternate sectionGoals may be documented in an alternate sectionGoals may be documented in an alternate sectionGoals may be documented in an alternate sectionGoals may be documented in an alternate sectionGoals may be documented in an alternate sectionGoals may be documented in an alternate sectionGoals may be documented in an alternate sectionGoals may be documented in an alternate sectionGoals may be documented in an alternate section Care Teams (unrecognized sec tion and content) Team Status: Active Member Role Status Dates Dr. Mandeep Segura MD Family Provider Active Dr. Mandeep Segura MD Primary Care Provider Active Team Status: Inactive Member Role Status Dates Dr. Mandeep Segura MD Primary Care Provider Active Dr. Bobby Torres DO Attending Provider, Referring Provider Active Team Status: Inactive Member Role Status Dates Dr. Mandeep Segrua MD Primary Care Provider Active Dr. Derek Colón DC Attending Provider, Referring P rovider Active Team Status: Active Member Role Status Dates Dr. Mandeep Segura MD Primary Care Provider Active Dr. Jas Willoughby MD Attending Provider Active Team Status: Active Member Role Status Dates Dr. Mandeep Segura MD Primary Care Provider Active Self Referred Attending Provider, Referring Provider A ctive Team Status: Inactive Member Role Status Dates Dr. Mandeep Segura MD Primary Care Provider Active Dr. Claudia Spear MD Attending Provider, Referr ing Provider Active Team Status: Inactive Member Role Status Dates Dr. Mandeep Segura MD Primary Care Provider, Referring P rovider Active Maria Del Carmen Herndon CNM Attending Provider Active Team Status: Inactive Member Role Status Dates Dr. Mandeep Segura MD Primary Care Provider Active Maria Del Carmen Herndon CNM Attending Provider Active Team Status: Active Member Role Status Dates Dr. Mandeep Segura MD Family Provider Active Dr. Erma Quiros MD Primary Care Provider Active Team Status: Inactive Member Role Status Dates Dr. Mandeep Segura MD Primary Care Provider, Referring P rovider Active Dr. Erma Quiros MD Attending Provider Active Team Status: Inactive Member Role Status Dates Dr. Erma Quiros MD Primary Care P rovider, Attending Provider, Referring Provider Active Team Status: Inactive Member Role Status Dates Dr. Erma Quiros MD Primary Care Provider Active Start: March 25, 2025 End: March 25, 2025 Dr. Erma Quiros MD Attending Provider Active Start: March 25, 2025 End: March 25, 2025 Dr. Erma Quiros MD Referring Provider Active Start: March 25, 2025 End: March 25, 2025 Team Status: Active Member Role Status Dates Dr. Erma Quiros MD Primary Care Provider Active Start: March 25, 2025 Dr. Erma Quiros MD Attending Provider Active Start: March 25, 2025 Dr. Erma Quiros MD Referring Provider Active Start: March 25, 2025 Team Status: Inactive Member Role Status Dates Dr. Erma Quiros MD Primary Care Provider Active Start: April 13, 2025 End: April 13, 2025 Dr. Bobby Torres DO Attending Provider Active Start: April 13, 2025 End: April 13, 2025 Dr. Bobby Torres DO Referring Provider Active Start: April 13, 2025 End: April 13, 2025 Team Status: Active Member Role/Relationship Status Dates Dr. Erma Quiros MD Primary Care Provider Active Team Status: Inactive Member Role/Relationship Status Dates Dr. Erma Quiros MD Primary Care Provider Active Start: March 25, 2025 End: March 25, 2025 Dr. Erma Quiros MD Attending Provider Active Start: March 25, 2025 End: March 25, 2025 Dr. Erma Quiros MD Referring Provider Active Start: March 25, 2025 End: March 25, 2025 Team Status: Inactive Member Role/Relationship Status Dates Dr. Erma Quiros MD Primary Care Provider Active Start: March 25, 2025 End: March 25, 2025 Dr. Erma Quiros MD Attending Provider Active Start: March 25, 2025 End: March 25, 2025 Dr. Erma Quiros MD Referring Provider Active Start: March 25, 2025 End: March 25, 2025 Team Status: Inactive Member Role/Relationship Status Dates Dr. Erma Quiros MD Primary Care Provider Active Start: April 13, 2025 End: April 13, 2025 Dr. Bobby Torres DO Attending Provider Active Start: April 13, 2025 End: April 13, 2025 Dr. Bobby Torres DO Referring Provider Active Start: April 13, 2025 End: April 13, 2025 Team Status: Active Member Role/Relationship Status Dates Dr. Erma Quiros MD Primary Care Provider Active Start: April 28, 2025 Dr. Erma Quiros MD Attending Provider Active Start: April 28, 2025 Dr. Erma Quiros MD Referring Provider Active Start: April 28, 2025 Team Status: Inactive Member Role/Relationship Status Dates Dr. Erma Quiros MD Primary Care Provider Active Start: June 16, 2025 End: June 16, 2025 Dr. Erma Quiros MD Referring Provider Active Start: June 16, 2025 End: June 16, 2025 Dr. Ben Traore MD Attending Provider Active Start: June 16, 2025 End: June 16, 2025 INFORMATION SOURCE (unrecogn ized section and content) DATE CREATED AUTHOR 08/05/2025 [facility] FOR RECORDS PERTAINING TO PATIENTS WHO ARE OR HAVE BEEN ENROLLED IN A CHEMICAL DEPENDENCY/SUBSTANCEABUSE PROGRAM, SOME INFORMATION MAY BE OMITTED. This clinical summary was aggregated from multiple sources. Caution should be exercised in using it in the provision of clinical care. This summary normalizes information from multiple sources, and as a consequence, information in this document may materially change the coding, format and clinical context of patient data. In addition, data may be omitted in some cases. CLINICAL DECISIONS SHOULD BE BASED ON THE PRIMARY CLINICAL RECORDS. [facility] [employer] provides no warranty or guarantee of the accuracy or completeness of information in this document.
--- NOTE | 2025-08-06 06:42 | PCM.HP.STD ---
HPI - General General Date of Admission: 08/06/25 Date of Service: 08/06/25 Chief Complaint: GERD HPI Narrative LANCE ANGELES, is a 60 F who present Chief Complaint: GERD US abd/ elastography 8.16.25- Liver measures 16.1cm, Stiffness 9.4 kPa 5.14.25 Fib-4 1.74 06/16/2025: Patient was referred by PCP for elevated liver enzymes and liver fibrosis on ultrasound. She does not have acute abdominal related symptoms including abdominal pain/discomfort, jaundice, GI bleed but has chronic GERD for more than 15 to 20 years and is on PPI. She had EGD more than 10-15 years ago and was normal. Had recently colonoscopy at the age of 56. Social history: Started smoking at the age of 22, 1 to 1.5 pack/day and quit more than 10 years ago. Occasional social drinking alcohol. Denies substance use. Family history: Personal history of Graves' disease and had radioactive thyroid treatment and is on levothyroxine for supplement. Her maternal aunt has liver disease. Her father, grandfather had RA [facility] Medical History Wears glasses Post-menopausal Thyroid disease Back pain Dietary restriction Gastric reflux Leg cramps Former smoker History of stress test Hepatic fibrosis Transaminitis Vertigo Muscle cramps Preventative health care Elevated liver enzymes Graves disease Home Medications ?Medication ?Instructions ?Recorded ?Last Taken ?Type cetirizine 10 mg capsule (Zyrtec) 10 mg PO QDAY 01/16/18 Unknown History omeprazole 20 mg delayed 20 mg PO DAILY 04/17/20 Unknown History release,disintegrating tablet cholecalciferol (vitamin D3) 50 50 mcg PO DAILY 05/06/20 Unknown History mcg (2,000 unit) capsule multivitamin 1 tab PO DAILY 05/06/20 Unknown History clobetasol 0.05 % topical ointment 1 applic topical QHS #60 grams 12/03/23 Unknown Rx conjugated estrogens 0.45 1 tab PO DAILY #90 tabs 11/06/24 Unknown Rx mg-bazedoxifene 20 mg tablet (Duavee) Held on 08/03/25. Instructions: MD Ordered calcium 250 mg (as 2 tab PO HS 03/25/25 Unknown History citrate)-vitamin D3 5 mcg (200 unit) tablet (Citracal Regular) levothyroxine 88 mcg tablet 88 mcg PO DAILY 03/25/25 08/06/25 History covid vaccine #1 ea 07/31/25 Unknown Rx famotidine 20 mg tablet (Pepcid) 20 mg PO BID #180 tabs 07/31/25 Unknown Rx hepatitis B virus vacc.rec(PF) 5 1 ml subcut ONCE #5 mL 07/31/25 Unknown Rx mcg/0.5 mL intramuscular susp Allergy/AdvReac Type Severity Reaction Status Date / Time Environmental Allergies: Allergy Mild SNEEZE, Verified 08/06/25 06:33 Uncoded ITCHY EYES, RUNNY NOSE Family History Father Heart disease Mother No problems noted. 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 [employer] current occupational exposures/hazards: No history of recent travel: No Smoking Status: Former smoker second hand exposure: No alcohol intake: current alcohol intake frequency: holidays/special occasions only Alcohol type: hard liquor substance use type: does not use what type of physical activity do you participate in: none frequency: 3-4 times per week seatbelt use: always do you feel safe at home: Yes additional social history: Javon Barry- Boyfrienmaritza VAZQUEZ Constitutional Constitutional: Denies fatigue, fever(s), poor appetite, weight gain or weight loss Gastrointestinal Gastrointestinal: Denies belching, bloating, change in bowel habits, change in stool character, chewing difficulty, coffee ground emesis, constipation, cramping, diarrhea, dyspepsia, dysphagia, early satiety, excessive flatus, fecal incontinence, heartburn, hematemesis, hematochezia, hemorrhoids, loose stools, melena, nausea, odynophagia, rectal bleeding, tenesmus, vomiting or weight changes Vital Signs Vital Signs Vital Signs: 08/06/25 06:35 08/06/25 06:35 Temperature 97.2 F L Temperature Source Temporal Pulse Rate 69 Respiratory Rate 16 Respiratory Pattern Normal Blood Pressure 140/67 H Blood Pressure Mean 91 Blood Pressure Source Monitor Blood Pressure Position Semi-Fowlers Blood Pressure Location Left Arm Pulse Ox 98 Oxygen Delivery Method Room Air Weight Weight: 160 lb 11.472 oz Body Mass Index (BMI) 29.4 Physical Exam Const alert, oriented x3, no apparent distress and healthy appearing General Appearance: cooperative GI normal to inspection, nondistended, normoactive bowel sounds, soft to palpation, non-tender and non-distended Percussion: normal to percussion Rectal Exam: deferred Assessment & Plan Assessment/Plan (1) GERD (gastroesophageal reflux disease): PLAN: Assessment and Plan Assessment and Plan (1) Elevated liver enzymes: Status: Chronic Comment: resolved Plan: Liver chemistry reviewed with the patient. Patient had elevated AST from April 2024 and ALT since September 2019 in 50s and sometimes in 60s. ALP normal. Albumin, globulin, A/G ratio and total bilirubin normal. Patient also has decreasing trend of platelet count over the years but not thrombocytopenia yet. Autoimmune disease might be a concern. Liver ultrasound with elastography reviewed with the patient. Size unremarkable, diffusely echogenic with fatty infiltration. Contour normal. 1.4 Demeter cyst in the anterior aspect of right lobe of liver. Medial velocity 1.76 m/s, medial fibrosis, 9.4 kPa suggestive of mild to moderate fibrosis. Possible differential service include viral hepatitis, autoimmune disease, metabolic disease, granulomatous disease and others. Comprehensive labs ordered. Follow-up in 3 months (2) Hepatic fibrosis: Status: Acute Plan: Mild hyperglycemia. A1c ordered. Needs to rule out prediabetes/diabetes mellitus (3) Hepatic cyst: Status: Acute Plan: Incidental finding of liver cyst as mentioned above. Patient on Duave, which contains estrogen component and bazedoxifene, SERM, helps reported translating from potential discussed with estrogen alone therapy She has been taking for 1 year. Advised not to take for more than 2 years. Risk of developing liver cyst/hepatic adenoma/FNH. (4) GERD (gastroesophageal reflux disease): Status: Acute Plan: Chronic, on PPI for 15 to 20 years. EGD scheduled. Advised to alternate omeprazole with Pepcid about long-term complications of PPI.
[2025-08-06] MEDS: Lactated Ringers 1,000 ML 15 ML IV (06:44)
--- NOTE | 2025-08-06 07:03 | PRE.ANES_ITS ---
ASA Classification* ASA Classification ASA Classification: 2 Assessment & Plan Anesthesia* Anesthesia Assessment Anesthesia Assessment: Discussed sedation and/or anesthesia options, risks, benefits, and alternatives with patient/parents/legal guardian/POA. Questions invited. The patient/parents/legal guardian/POA seems to understand and agrees to proceed with anesthesia plan. Reviewed the physical assessment, medical history, allergy history and patient home medications list prior to surgery/procedure/anesthetic and documented any changes. Performed airway and anesthesia risk assessments. Anesthesia Type Anesthesia Type: MAC History Source History Obtained from:: Patient and Chart Anesthesia Focused Assessment* Temperature: 97.2 F Pulse Rate: 69 Blood Pressure: 140/67 Respiratory Rate: 16 Pulse Ox: 98 Oxygen Delivery Method: Room Air Airway Assessment Mouth opens: >3 cm Mallampati Score: I Teeth Condition: Caps/Crowns (Patient has several crowns. They are all tight.) and Missing (Patient is missing a right upper molar. Rest are tight.) Neck Range of motion (ROM): Full ROM Labs Anesthesia Preop lab: CBC WBC, (4.4-11.0) 4.4 K/mm3 03/25/25, 08:43 RBC, (4.2-5.4) 4.19 M/mm3 L 03/25/25, 08:43 Hgb, (12.0-15.0) 13.2 g/dL 03/25/25, 08:43 Hct, (37-47) 37.7 % 03/25/25, 08:43 Plt Count, (150-450) 194 K/mm3 03/25/25, 08:43 CHEMISTRY Potassium, (3.3-5.1) 4.3 mmol/L 04/13/25, 08:24 Sodium, (133-145) 141 mmol/L 04/13/25, 08:24 Magnesium, (1.5-2.2) 2.0 mg/dL 04/13/25, 08:24 BUN, (4-19) 13 mg/dL 04/13/25, 08:24 Creatinine, (0.70-1.20) 0.70 mg/dL 04/13/25, 08:24 Glucose, (70-99) 113 mg/dL H 04/13/25, 08:24 TSH, (0.300-4.200) 1.620 uIU/mL 04/13/25, 08:24 COAG PT, (11.7-14.9) 12.3 SECONDS 08/05/21, 10:47 Pre-Assessment Diagnosis/Proposed Procedure Planned Operative Procedure(s): EGD Anesthesia History Anesthesia History - hogshead opener: Anesthesia History - hogshead opener Hx Hospitalization No 08/03/25 13:59 Any Problems With Anesthesia No 08/03/25 13:59 Cholinesterase deficiency No 08/03/25 13:59 You/Your Family Experience No 08/03/25 13:59 fever (hyperthermia) with Relationship Recent Exposure to Contagious No 08/06/25 06:35 Disease Does patient have nerve No 08/03/25 13:59 stimulator Patient instructed to have device shut off --Does patient have Pacemaker No 08/06/25 06:35 or ICD? When Was Last Pacemaker Check QUESTION #4 FULL TEXT: You/Your Family Experience fever (hyperthermia) with Anesthesia Last Oral Intake Last Oral intake: Last Oral Intake NPO since 23:00 08/06/25 06:35 Meds taken in AM with sips of water? Meds patient instructed to take am of surgery Any additional information?: Yes NPO since: 05:15 (Patient had her Synthroid at 5:15 AM) Meds taken in AM with sips of water?: Yes PONV PONV - hogshead opener: PONV - hogshead opener Female Yes 08/03/25 13:59 HX of Motion Sickness No 08/03/25 13:59 HX of N/V After Surgery No 08/03/25 13:59 Non-Smoker Yes 08/03/25 13:59 Duration of Surgery greater No 08/03/25 13:59 than 60 minutes Number of Risk Factors 2 08/03/25 13:59 PONV Score Moderate Risk 08/03/25 13:59 Height & Weight Height & Weight: Anesthesia: Height & Weight Height 5 ft 2 in 08/06/25 06:35 Weight: 72.9 kg 08/06/25 06:35 Body Mass Index (BMI) 29.4 08/06/25 06:35 Respiratory Assessment Respiratory Assessment - hogshead opener: Respiratory Tract Infection Hx - hogshead opener Hx Respiratory Tract Infection No 08/03/25 13:59 STOP Sleep Apnea STOP Sleep Apnea - hogshead opener: STOP Sleep Apnea - hogshead opener Hx Hypertension Yes: NO MEDS 08/03/25 13:59 Hx Sleep Apnea No 08/03/25 13:59 CPAP No 11/28/13 15:07 BIPAP No 11/28/13 15:07 Do you snore loudly (louder No 08/03/25 13:59 than talking or can be heard Do you often feel tired/ No 08/03/25 13:59 fatigued/ sleepy during daytime? Has anyone observed you stop No 08/03/25 13:59 breathing during sleep? STOP Results Negative 08/03/25 13:59 QUESTION #5 FULL TEXT : Do you snore loudly (louder than talking or can be heard through closed doors)? 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 Specify any problems Hx of Preganancy in last 3 No 08/03/25 13:59 Months Nurse Filling Out Transfusion MGRIFFITH 08/03/25 13:59 & Questions: Date: 08/03/25 08/03/25 13:59 Time: 14:01 08/03/25 13:59 Patient unable to answer at this time (ie. confused, unrespo /Reproduction History /Reproductive History - hogshead opener: /Reproductive Hx- hogshead opener Hx Now No 08/03/25 13:59 Gestational Age (in weeks): EDC: Hx Hx Para Hx Section SAB No 08/03/25 13:59 Active Medications Active Medications: Current Medications Generic Name Dose Route Start Last Admin Trade Name Freq PRN Reason Stop Dose Admin Lactated Ringer's 1,000 mls @ 15 mls/hr 08/06/25 06:30 08/06/25 06:44 IV 15 mls/hr .Q48H SOPHIE Administration PFSH Medical History Wears glasses Post-menopausal Thyroid disease Back pain Dietary restriction Gastric reflux Leg cramps Former smoker History of stress test Hepatic fibrosis Transaminitis Vertigo Muscle cramps Preventative health care Elevated liver enzymes Graves disease Home Medications ?Medication ?Instructions ?Recorded ?Last Taken ?Type cetirizine 10 mg capsule (Zyrtec) 10 mg PO QDAY Unknown History omeprazole 20 mg delayed 20 mg PO DAILY 04/17/20 Unkn own History release,disintegrating tablet cholecalciferol (vitamin D3) 50 50 mcg PO DAILY Unknown History mcg (2,000 unit) capsule multivitamin 1 tab PO DAILY 05/06/20 Unkn own History clobetasol 0.05 % topical ointment 1 applic topical QH S #60 grams 12/03/23 Unknown Rx conjugated estrogens 0.45 1 tab PO DAILY #90 tabs 10/13 05/05 Unknown Rx mg-bazedoxifene 20 mg tablet (Duavee) Held on 08/03/25. Instructions: MD Ordered calcium 250 mg (as 2 tab PO HS 03/25/25 Unknown History citrate)-vitamin D3 5 mcg (200 unit) tablet (Citracal Regular) levothyroxine 88 mcg tablet 88 mcg PO DAILY 03/25/25 0 08/06/25 History covid vaccine #1 ea 07/31/25 Unknown Rx famotidine 20 mg tablet (Pepcid) 20 mg PO BID #180 tab s 07/31/25 Unknown Rx hepatitis B virus vacc.rec(PF) 5 1 ml subcut ONCE #5 m L 07/31/25 Unknown Rx mcg/0.5 mL intramuscular susp Allergy/AdvReac Type Severity Reaction Status Date / Time Environmental Allergies: Allergy Mild SNEEZE, Verified 08/06/25 06:33 Uncoded ITCHY EYES, RUNNY NOSE Family History Father Heart disease Mother No problems noted. 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 [employer] current occupational exposures/hazards: No history of recent travel: No Smoking Status: Former smoker second hand exposure: No alcohol intake: current alcohol intake frequency: holidays/special occasions only Alcohol type: hard liquor substance use type: does not use what type of physical activity do you participate in: none frequency: 3-4 times per week seatbelt use: always do you feel safe at home: Yes additional social history: Javon Barry- Boyfriend Review of Systems (Anesthesia) ROS Narrative System reviewed and no additional complaints, except as documented.
--- NOTE | 2025-08-06 07:15 | EGD_PTH ---
PATIENT: LANCE ANGELES LOC: EN U#:[id number] AGE/SX: 60/F ROOM: RE08/06/[address]: Dr. Adrian Lopez DO : 1965 BED: DIS: 08/06/2025 SPEC #: [id number] RECD: 08/06/25 10:43 STATUS: DOMINGO RETammy #: [id number] HARESH: 08/06/25 07:[address]: Adrian Lopez DEPT: SURGICAL PATHOLOGY RECD BY: Jassi Hernandez ENTERED: 08/06/25 14:35 SP TYPE: EGD BIOPSY ELIJAH DR: Dr. Erma Quiros MD Tissues: A - Esophagus, NOS Procedures: Surgery Specimen Level IV HEADER OPERATION: EGD with biopsy PRE-OP DIAGNOSIS: GERD TISSUE SUBMITTED: A- Distal esophagus biopsy MICROSCOPIC DIAGNOSIS A. Distal esophagus, biopsy: * Squamous mucosa with reactive changes. * Columnar mucosa negative for goblet cell metaplasia. MICROSCOPIC DESCRIPTION Slides are reviewed. GROSS DESCRIPTION A. Received in fixative is one container labeled with the patient's name and designated Distal esophagus biopsy. The specimen consists of two irregular fragments of rosales tissue, each measuring 0.5 cm. The specimen is totally submitted in one cassette. MD 08/06/2025 CPT:46415
--- NOTE | 2025-08-06 07:59 | OP.EGD_ITS ---
Patient Name: Sandra Ingram Procedure Date: 08/06/2025 7:36 AM Date of : 1965 Age: 60 Procedure: Upper GI endoscopy Indications: Heartburn, Suspected esophageal reflux Providers: Adrian Lopez DO Referring MD: Erma Quiros MD Medicines: Monitored Anesthesia Care Patient Profile: This is a 60 year old female. Refer to note in patient chart for documentation of history and physical. Patient has symptoms of chronic heartburn. Complications: No immediate complications. Procedure: Pre-Anesthesia Assessment: - Prior to the procedure, a History and Physical was performed, and patient medications and allergies were reviewed. The patient is competent. The risks and benefits of the procedure and the sedation options and risks were discussed with the patient. All questions were answered and informed consent was obtained. Patient identification and proposed procedure were verified by the physician. Mental Status Examination: alert and oriented. Airway Examination: normal oropharyngeal airway and neck mobility. Respiratory Examination: clear to auscultation. CV Examination: normal. Prophylactic Antibiotics: The patient does not require prophylactic antibiotics. Prior Anticoagulants: The patient has taken no anticoagulant or antiplatelet agents except for NSAID medication. ASA Grade Assessment: II - A patient with mild systemic disease. After reviewing the risks and benefits, the patient was deemed in satisfactory condition to undergo the procedure. The anesthesia plan was to use monitored anesthesia care (MAC). Immediately prior to administration of medications, the patient was re-assessed for adequacy to receive sedatives. The heart rate, respiratory rate, oxygen saturations, blood pressure, adequacy of pulmonary ventilation, and response to care were monitored throughout the procedure. The physical status of the patient was re-assessed after the procedure. After obtaining informed consent, the endoscope was passed under direct vision. Throughout the procedure, the patient's blood pressure, pulse, and oxygen saturations were monitored continuously. The gastroscope was introduced through the mouth, and advanced to the second part of duodenum. The upper GI endoscopy was accomplished without difficulty. The patient tolerated the procedure well. Scope In: 7:49:17 AM Scope Out: 7:51:58 AM Total Procedure Duration Time 0 hours 2 minutes 41 seconds Findings: No gross lesions were noted in the entire esophagus. Biopsies were taken with a cold forceps for histology. Verification of patient identification for the specimen was done. Estimated blood loss was minimal. The entire examined stomach was normal. The examined duodenum was normal. Impression: - No gross lesions in the entire esophagus. Biopsied. - Normal stomach. - Normal examined duodenum. Recommendation: - Discharge patient to home. - Resume previous diet. - Continue present medications. - Await pathology results. Procedure Code(s): --- Professional --- 23903, Esophagogastroduodenoscopy, flexible, transoral; with biopsy, single or multiple CPT copyright 2021 [employer]. All rights reserved. The codes documented in this report are preliminary and upon international coordinator review may be revised to meet current compliance requirements. Adrian Lopez DO 08/06/2025 7:59:21 AM This report has been signed electronically. Number of Addenda: 0 Note Initiated On: 08/06/2025 7:36 AM
--- NOTE | 2025-08-06 07:59 | OP.PROVAT_ITS ---
08/06/2025 Erma Quiros MD [address] [place] [address] [place] [address] Re : Upper GI endoscopy procedure for Sandra Ingram Dear Dr. Quiros This procedure was performed on July. My impressions and recommendations are as follows: Impressions : - No gross lesions in the entire esophagus. Biopsied. - Normal stomach. - Normal examined duodenum. Recommendations : - Discharge patient to home. - Resume previous diet. - Continue present medications. - Await pathology results. My findings are described in the full procedure note, which is enclosed. If I can be of further assistance, please feel free to contact me at . Sincerely, Adrian Lopez, 08/06/2025 7:59:21 AM This report has been signed electronically.
--- NOTE | 2025-08-06 08:03 | PCM.POST.ANE ---
Anesthesia: Postop Eval I Current Vital Signs Temperature: 97.7 F Pulse Rate: 67 Blood Pressure: 94/58 Respiratory Rate: 16 Pulse Ox: 97 Oxygen Delivery Method: Room Air Assessment Airway patent: Yes Spontaneous unlabored respirations: Yes Mental status: Asleep nausea: No Vomiting: No Anesthesia Complication: No Fluid Hydration Crystalloid volume administer (ml): 400 Total IV fluid infused: 400 Progress Note Anesthesia document: Postop Eval 1 completed: Yes
--- NOTE | 2025-08-06 10:45 | PCM.POSTANE2 ---
Anesthesia Postop Eval I Sum Postop Eval Completion status Anesthesia document: Postop Eval 1 completed: Yes Anesthesia Postop Eval I Summary Anesthesia Postop Eval I Summary: Anesthesia Postop Eval I: Assessment Summary Airway patent Yes 08/06/25 08:04 [email or web address] Spontaneous unlabored Yes 08/06/25 08:04 [email or web address] respirations Mental status Asleep 08/06/25 08:04 [email or web address] nausea No 08/06/25 08:04 [email or web address] Vomiting No 08/06/25 08:04 [email or web address] Anesthesia Postop Eval I: Fluid Summary Crystalloid volume administer 400 08/06/25 08:04 [email or web address] (ml) Colloids volume administered ( ml) Blood Product volume administered (ml) Total IV fluid infused 400 08/06/25 08:04 [email or web address] Anesthesia Postop Eval I: Summary Notes Anesthesia Complication No 08/06/25 08:04 [email or web address] Anesthesia Complication Comment: Post-operative progress note Anesthesia: Postop Eval II Evaluation Mental status: Awake and Calm Pain Level: 0 nausea: No Vomiting: No Complications Anesthesia Complication: No
== END 2025-08-06 08:42 | disposition home or self-care (01) ==
LOC: EN 06:14 → AC 06:16
PROVIDERS: PCP Internal Medicine; Referring Provider Internal Medicine; Visit Provider Internal Medicine Gastroenterology
PROC: 0DJ08ZZ Inspection of Upper Intestinal Tract, Via Natural or Artificial Opening Endoscopic (ICD-10-PCS; CPT 43235; principal; 2025-08-06 07:10)
DX: K21.9 Gastro-esophageal reflux disease without esophagitis (principal); Z87.891 Personal history of nicotine dependence; R74.8 Abnormal levels of other serum enzymes; E07.9 Disorder of thyroid, unspecified; Z79.890 Hormone replacement therapy; Z79.899 Other long term (current) drug therapy; K74.00 Hepatic fibrosis, unspecified; K76.89 Other specified diseases of liver
CPT/HCPCS: 43239; 88305; J2405

== ENCOUNTER → 2025-09-17 | Outpatient (CLI) | payer BC, SELFPAY ==
[2025-09-17 08:47] LABS: Hematocrit 38.2 % (37-47); Hemoglobin 13.3 g/dL (12.0-15.0); Immature Granulocytes Count 0.000 X10^3/uL (0.0-0.0); Mean Corp Hgb Conc 34.8 g/dL (32-36); Mean Corpuscular Volume 88.0 fL (81-99); Mean Platelet Vol. 9.7 fl (6.2-12.0); NRBC Flagged by Analyzer 0 % (0-5); Platelet Count 193 K/mm3 (150-450); RBC Distribution Width CV 11.9 % (11.6-14.6); RBC Distribution Width SD 38.0 fl (35.1-43.9); Red Blood Count 4.34 M/mm3 (4.2-5.4); White Blood Count 3.1 K/mm3 (4.4-11.0)
[2025-09-17 09:50] LABS: Prothrombin Time (Protime)PT. 13.4 SECONDS (11.7-14.9)
[2025-09-17 09:53] LABS: AST(SGOT) 23 U/L (<=31); Alanine Aminotransfer ALT/SGPT 27 U/L (<=34); Albumin, Serum 4.6 g/dL (3.5-5.0); Alkaline Phosphatase 64 U/L (35-104); Anion Gap 12 (5-15); BUN 10 mg/dL (4-19); BUN/Creat Ratio 14.9 RATIO (10-20); Calcium,Total 10.0 mg/dL (7.6-11.0); Carbon Dioxide 25.8 mmol/L (21.0-32.0); Chloride 104 mmol/L (98-108); Cholesterol 193 mg/dL (<=200); Ferritin 131 ng/mL (22-378); Globulin 2.4 g/dL (2.2-4.2); Glucose 114 mg/dL (70-99); HIV Nonreactive (Nonreactive); Low Density Lipoprotein Calc. 122 mg/dL; Potassium 3.9 mmol/L (3.3-5.1); Triglycerides 66 mg/dL; Very Low Density Lipoprotein 13 mg/dL (5-40); cholesterol:hdl ratio screen 3.27
[2025-09-17 10:33] LABS: CRP 5.80 mg/L (0.0-3.0); Iron 77 ug/dL (50-170); Iron Binding Capacity,Total 306 ug/dL (250-450); Iron Binding Capacity,Unsat 229 ug/dL (228-428)
[2025-09-18 13:09] LABS: ANTINUCLEAR ANTIBODIES DIRECT Negative (Negative)
[2025-09-21 20:08] LABS: Albumin 4.3 g/dL (2.9-4.4); Anti-Smooth Muscle ABS 6 Units (0-19); Gamma Globulin 0.7 g/dL (0.4-1.8); HEPATITIS B SURFACE AG Negative (Negative); Hep C Antibodies Non Reactive (Non Reactive); Immunoglobulin A 181 mg/dL (87-352); Immunoglobulin G 767 mg/dL (586-1602); Immunoglobulin M 53 mg/dL (26-217); PROEL- TOTAL PROTEIN 6.9 g/dL (6.0-8.5)
== END | disposition home or self-care (01) ==
PROVIDERS: PCP Internal Medicine; Referring Provider Internal Medicine; Visit Provider Internal Medicine
DX: R74.01 Elevation of levels of liver transaminase levels (principal); R74.8 Abnormal levels of other serum enzymes; D69.6 Thrombocytopenia, unspecified
CPT/HCPCS: 36415; 80053; 80061; 80074; 82390; 82728; 82784; 82785; 83036; 83516; 83540; 83550; 84165; 85025; 85610; 86038; 86140; 86225; 86334; 86703; 86706

== ENCOUNTER → 2025-09-25 | Outpatient (CLI) | payer BC, SELFPAY ==
--- NOTE | 2025-09-25 13:45 | BI_ITS ---
EXAM: SCRN MAMM (CAD)W/SRIKANTH BILAT DATE: 09/25/2025 CLINICAL HISTORY: F, Age 60 y/o , SCREEN FOR BREAST CANCER Aunt with breast cancer. TECHNIQUE: Procedure Code: [id number] Modality: MG Procedure: SCRN MAMM (CAD)W/SRIKANTH BILAT COMPARISON: Prior exam(s) dated September 02, 2024.. FINDINGS: TISSUE DENSITY: The breasts are heterogeneously dense, which may obscure small masses. Bilateral Breast Mammographic Findings: No significant masses, calcifications or other abnormalities are identified. No suspicious masses, areas of developing architectural distortion, or suspicious calcifications. There has been no significant interval change. BI/SCRN MAMM (CAD)W/SRIKANTH BILAT IMPRESSION: Stable bilateral screening mammogram. OVERALL FINAL ASSESSMENT BI-RADS 1: NEGATIVE. RECOMMENDATION: Routine annual follow-up in 1 Year Additional Recommendation none A letter with findings and recommendations will be mailed to the patient. Reading Location: [place] [id number]
== END | disposition home or self-care (01) ==
LOC: OPBI 13:24
PROVIDERS: PCP Internal Medicine; Referring Provider Advanced Practice Midwife; Visit Provider Advanced Practice Midwife
DX: Z12.31 Encounter for screening mammogram for malignant neoplasm of breast (principal)
CPT/HCPCS: 77063; 77067

== ENCOUNTER → 2025-10-19 | Outpatient (CLI) | payer BC, SELFPAY ==
[2025-10-19 10:44] LABS: AST(SGOT) 21 U/L (<=31); Alanine Aminotransfer ALT/SGPT 23 U/L (<=34); Albumin, Serum 4.5 g/dL (3.5-5.0); Alkaline Phosphatase 59 U/L (35-104); Anion Gap 11 (5-15); BUN 8 mg/dL (4-19); BUN/Creat Ratio 13.2 RATIO (10-20); Calcium,Total 9.3 mg/dL (7.6-11.0); Carbon Dioxide 26.7 mmol/L (21.0-32.0); Chloride 107 mmol/L (98-108); Globulin 2.1 g/dL (2.2-4.2); Glucose 112 mg/dL (70-99); Potassium 4.7 mmol/L (3.3-5.1); Vitamin D,25 Hydroxy 69.9 ng/mL (30-100)
[2025-10-19 11:18] LABS: Cholesterol 184 mg/dL (<=200); Low Density Lipoprotein Calc. 110 mg/dL; Triglycerides 107 mg/dL; Very Low Density Lipoprotein 21 mg/dL (5-40); cholesterol:hdl ratio screen 3.39
== END | disposition home or self-care (01) ==
LOC: LAB 08:58
PROVIDERS: PCP Internal Medicine; Referring Provider Internal Medicine Endocrinology, Diabetes & Metabolism; Visit Provider Internal Medicine Endocrinology, Diabetes & Metabolism
DX: E78.2 Mixed hyperlipidemia (principal); E03.9 Hypothyroidism, unspecified; E55.9 Vitamin D deficiency, unspecified
CPT/HCPCS: 36415; 80053; 80061; 82306; 84443

== ENCOUNTER → 2025-10-23 | Outpatient (CLI) | payer BC, SELFPAY ==
--- NOTE | 2025-10-23 08:10 | CT_ITS ---
PROCEDURE: LIMITED CHEST CT CARDIAC ONLY 10/23/2025 REASON FOR EXAM: CARDIAC RISK ASSESEMENT TECHNIQUE: Procedure Code: [id number] Modality: CT Procedure: LIMITED CHEST CT CARDIAC ONLY Coronal and Sagittal reconstruction series were provided. CONTRAST: None One or more dose reduction techniques were used (e.g., Automated exposure control, adjustment of the mA and/or kV according to patient size, use of iterative reconstruction technique). RADIATION DOSE SUMMARY: CTDlvol: 12.19 mGy DLP: 219.42 mGycm COMPARISON: None FINDINGS: Coronary artery calcification. The heart is nonenlarged. Calcified right hilar lymph nodes. Atherosclerotic calcification of the aortic arch. The visualized portions of the lungs are unremarkable except for scattered calcified granulomas. Fatty infiltration of the liver. CT/Limited Chest CT Cardiac Only IMPRESSION: Coronary artery calcification Reading Location: [place] [address]
--- OUTSIDE RECORDS SUMMARY | 2025-10-23 08:26 | XMS RPT_ITS | CCD ---
Author Organization [facility] Care Team Providers Care Design Engineering Technician Name Role Phone Dr. Mandeep Segura Primary Care Provider Dr. Mandeep Hampton Attending Provider Dr. Mandeep Segura Primary Care Provider [phone] Dr. Jas Willoughby Attending Provider Dr. Mandeep Segura Primary Care Provider Dr. Jas Willoughby Attending Provider Dr. Mandeep Segura Referring Provider [phone] DONNA Herndon Attending Provider Dr. Erma Quiros Attending Provider Chula SANTO, Dr. Ritchie Primary Care Provider Dr. Erma Quiros MD Attending Provider [phone] Dr. Erma Quiros MD Referring Provider [phone] Dr. Bobby Torres DO Attending Provider Dr. Bobby Torres DO Referring Provider Dr. Ben Traore MD Attending Provider Dr. Erma Quiros MD Primary Care Physician Dr. Erma Quiros MD Attending Physician [phone] Chula SANTO, Dr. Ritchie Referring Provider [phone] Dr. Ben Traore MD Attending Physician Dr. Adrian Lopez DO Attending Physician Friend Dr. Adrian VAN Nurse Practitioner Referred, Self Attending Physician Unavailable Referred, Self Referring Provider Unavailable Maria Del Carmen Herndon Referring Unavailable Maria Del Carmen Herndon Attending Unavailable Oleghe, Efewongbe Primary Care Unavailable Oleghe, Efewongbe Primary Care Unavailable Referred, Self Attending Unavailable Referred, Self Referring Unavailable Oleghe, Efewongbe Primary Care Unavailable Oleghe, Efewongbe Attending Unavailable Oleghe, Efewongbe Referring Unavailable Ben Traore Attending Unavailable Ben Traore Referring Unavailable Oleghe, Efewongbe Primary Care Unavailable Oleghe, Efewongbe Primary Care Unavailable Bobby Torres Attending Unavailable Wietecha Bobby Referring Unavailable Oleghe, Efewongbe Primary Care Unavailable Oleghe, Efewongbe Attending Unavailable Oleghe, Efewongbe Referring Unavailable Oleghe, Efewongbe Primary Care Unavailable Adrian Lopez Attending Unavailable Oleghe, Efewongbe Referring Unavailable Oleghe, Efewongbe Primary Care Unavailable WiBobby herrera Attending Unavailable Wietecha Bobby Referring Unavailable Adrian Lopez Consulting Unavailable Adrian Lopez Attending Unavailable Oleghe, Efewongbe Referring Unavailable Oleghe, Efewongbe Primary Care Unavailable Ben Traore Attending Unavailable Oleghe, Efewongbe Referring Unavailable Oleghe, Efewongbe Primary Care Unavailable Oleghe, Efewongbe Primary Care Unavailable Oleghe, Efewongbe Attending Unavailable Oleghe, Efewongbe Referring Unavailable Oleghe, Efewongbe Primary Care Unavailable Ben Traore Attending Unavailable Oleghe, Efewongbe Referring Unavailable Allergies Allergy Classification Reported Allergen(s) Allergy Type Date of Onset Reaction(s) Facility (11 sources) Environmental Allergies: Uncoded; Translations: [Environmental Allergies: Uncoded] Allergy to substance 2 SNEEZE, ITCHY EYES, RUNNY NOSE [facility] Medications Current Medications Medication Drug Class(es) Dates Sig (Normalized) Sig (Original) bazedoxifene 20 mg / estrogens, conjugated (halfway) 0.45 mg oral tablet (16 sources) Estrogen Start: 12-03-2023 End: 11-06-2024 take 1 tablet by mouth once daily Start: 11-01-2023 End: 11-07-2023 take 1 tablet by mouth once daily Conj Estrogens-Bazedoxifene (Duavee) 0.45-20 mg tablet Discontinued 1 {tbl} PO DAILY 30 0 November 01, 2023 1:00am November 07, 2023 3:23pm Dyspareunia calcium citrate 1190 mg / ch olecalciferol 0.005 mg oral tablet (16 sources) Vitamin D Start: 03-25-2025 Start: 05-12-2021 End: 03-25-2025 Calcium Citrate-Vitamin D3 ( Citracal Regular) 250 mg-5 mcg (200 unit) tablet Discontinued 1 {tbl} PO THREE TIMES A DAY May 12, 2021 12:00am March 25, 2025 8:15am cetirizine hydrochloride 10 mg oral capsule (11 sources) Histamine-1 Receptor Antagonist Start: 01-16-2018 take 1 capsule by mouth once daily cholecalciferol 0.05 mg oral capsule (11 sources) Vitamin D Start: 05-06-2020 take 1 capsule by mouth once daily clobetasol propionate 0.0005 mg/mg topical ointment (20 sources) Corticosteroid Start: 12-03-2023 Start: 05-12-2021 End: 11-07-2023 Clobetasol 0.05 % [...] daily for 2 weeks then as needed. famotidine 20 mg oral tablet (2 sources) Histamine-2 Receptor Antagonist Start: 06-16-2025 End: 07-31-2025 take 1 tablet by mouth twice daily levothyroxine sodium 0.088 mg oral tablet (20 sources) l-Thyroxine Start: 03-25-2025 Start: 04-17-2020 End: 03-25-2025 take 1 tablet [...] DAILY May 06, 2020 12:00am Multivitamin tablet (5 sources) Start: 05-06-2020 Start: 05-06-2020 Multivitamin t ablet Active 1 {tbl} PO DAILY May 06, 2020 12:00am omeprazole 20 mg disintegrating oral tablet (11 sources) Proton Pump Inhibitor Start: 04-17-2020 take 1 tablet by mouth once daily Completed/Discontinued Medications Medication Drug Class(es) Dates Sig (Normalized) Sig (Original) biotin 1 mg oral capsule (11 sources) Start: 05-06-2020 End: 06-16-2025 take 1 capsule by mouth once daily Biotin 1 mg capsule Discontinued 1 mg PO DAILY May 06, 2020 12:00am June 16, 2025 1:43pm buPROPion hydrochloride 75 mg oral tablet (11 sources) Aminoketone Start: 11-28-2013 End: 01-16-2018 take 1 tablet by mouth once daily Bupropion Hcl 75 MG tablet Discontinued 75 mg PO DAILY November 28, 2013 1:00am January 16, 2018 12:33pm calcium ascorbate 500 mg oral tablet (11 sources) Start: 05-06-2020 End: 03-25-2025 take 1 tablet by mouth once daily Ascorbate Calcium (Vitamin C) 500 mg tablet Discontinued 500 mg PO DAILY May 06, 2020 12:00am March 25, 2025 8:14am esomeprazole 20 mg delayed release oral capsule (11 sources) Proton Pump Inhibitor Start: 11-28-2013 End: 01-16-2018 take 1 capsule by mouth once daily Esomeprazole Magnesium 20 MG capsule Discontinued 20 mg PO DAILY November 28, 2013 1:00am January 16, 2018 12:33pm estradiol 0.1 mg/ml vaginal cream (11 sources) Estrogen Start: 05-06-2020 End: 06-04-2020 Estradiol [...] maintenance liothyronine sodium 0.005 mg oral tablet (11 sources) l-Triiodothyronine Start: 04-17-2020 End: 11-07-2023 take [...] 1 TABLET DAILY WITH FOOD (MEAL/SNACK) Problems Problem Classification Problem Date Documented Date Episodic/Chronic Coagulation and hemorrhagic disorders (1 source) Thrombocytopenia, unspecified; Translations: [Thrombocytopenia, unspecified] Onset: 09-21-2025 Chronic Conditions associated with dizziness or vertigo (7 sources) Vertigo; Translations: [Dizziness and giddiness] 03-25-2025 Episodic Contraceptive and procreative management (11 sources) Intrauterine contraceptive device in situ; Translations: [Encounter for routine checking of intrauterine contraceptive device] 05-06-2020 Episodic Comment on above: check fsh and estrad iol and if in postmenopausal range recommend iud removal. Esophageal disorders (5 sources) Gastroesophageal reflux disease; Translations: [Gastro-esophageal reflux disease without esophagitis] Onset: 08-21-2025 06-16-2025 Chronic Menopausal disorders (5 sources) Menopausal syndrome; Translations: [Menopausal and female climacteric states] 12-03-2023 Chronic Comment on above: duavee. coconut oil Other connective tissue disease (7 sources) Cramp; Translations: [Cramp and spasm] 03-25-2025 Episodic Other female genital disorders (11 sources) Dyspareunia; Translations: [Dyspareunia] 05-12-2021 Chronic Comment on above: duavee Other injuries and conditions due to external causes (20 sources) Foreign body in ear; Translations: [Foreign body in ear, unspecified ear, initial encounter] 04-18-2020 Episodic Other liver diseases (3 sources) Hepatic fibrosis; Translations: [Hepatic fibrosis] 04-28-2025 Chronic Other liver diseases (2 sources) Liver cyst; Translations: [Other specified diseases of liver] 06-16-2025 Chronic Other liver diseases (1 source) Other specified diseases of liver; Translations: [Other specified diseases of liver] Onset: 09-16-2025 Chronic Other liver diseases (6 sources) Elevated liver enzymes level; Translations: [Abnormal levels of other serum enzymes] 11-05-2024 Episodic Comment on above: resolved Other liver diseases (3 sources) Enzyme level - finding; Translations: [Elevated transaminase measurement] 04-13-2025 Episodic Other liver diseases (2 sources) Abnormal levels of other serum enzymes; Translations: [Abnormal levels of other serum enzymes] Onset: 09-16-2025 Episodic Other non-traumatic joint disorders (5 sources) Ankle pain; Translations: [Pain in left ankle and joints of left foot] 06-04-2024 Episodic Other nutritional; endocrine; and metabolic disorders (11 sources) History of Graves' disease; Translations: [Personal history of other endocrine, nutritional and metabolic disease] 04-17-2020 Episodic Comment on above: hypothyroid Other nutritional; endocrine; and metabolic disorders (1 source) Personal history of other endocrine, nutritional and metabolic disease; Translations: [Personal history of other endocrine, metabolic, and immunity disorders] 11-07-2023 Episodic Other screening for suspected conditions (not mental disorders or infectious disease) (1 source) Encounter for screening mammogram for malignant neoplasm of breast; Translations: [Encounter for screening mammogram for malignant neoplasm of breast] Onset: 09-16-2025 Episodic Other skin disorders (11 sources) Lichen sclerosus et atrophicus; Translations: [Lichen sclerosus et atrophicus] 05-06-2020 Chronic Comment on above: clobetasol Residual codes; unclassified (11 sources) Positive measurement finding; Translations: [Positive test for human papillomavirus (HPV)] 05-06-2020 Episodic Comment on above: repeat pap hpv in 2019 was nl and neg hpv; 2022 neg pap and hpv Spondylosis; intervertebral disc disorders; other back problems (11 sources) Spondylosis; Translations: [Spondylosis, unspecified] 04-17-2020 Chronic Thyroid disorders (1 source) Other specified hypothyroidism; Translations: [Other specified hypothyroidism] Onset: 04-16-2025 Chronic Unclassified (1 source) Elevation of levels of liver transaminase levels; Translations: [Elevation of levels of liver transaminase levels] Onset: 09-21-2025 Unclassified (2 sources) Hepatic fibrosis, unspecified; Translations: [Hepatic fibrosis, unspecified] Onset: 09-16-2025 Results Test Name Value Interpretation Reference Range Facility [id number] 09-22-2025 [facility] Misc. COMMENT Normal . [facility] Comment on above: Order Comment: [id number] 9Serum ELF testRF Result Comment: Test Ordered: [id number] Enhanced Liver Fibrosis (ELF) ELF(TM) Score 8.53 BN Reference Range: <9.80 ELF(TM) Score Interpretation: Risk cut-offs to assess the likelihood of progression to cirrhosis and liver-related clinical events within 3.9 years following baseline ELF score (IQR: 14.0-22.4 months)*: Lower risk < 9.80 Mid risk 9.80 - 11.29 Higher risk >11.29 Note: The ELF(TM) Score is a unitless numerical value. *Madhu SA, Arron VW, Marge T, et al. Selonsertib for patients with bridging fibrosis or compensated cirrhosis due to CHATMAN: Results from randomized phase III STELLAR trials. J Hepatol. 2020 Cristian;73(1):26-39. Performed at: - [facility] [id number] [place], [place] [id number] Front Office Director: Paris Mcfarland MD, Phone: [phone] Performed at: - [facility] [address] [place], [place] [id number] Front Office Director: Hernandez Jin PhD, Phone: [phone] Performed By: #### L 3100.3425, L803.2200, L3400.0700, L3410.9992, L501.9985, L500.4050, L500.4100, L300.3900, L3890.6202, L503.6550, L3890.6006, L100.0100, L3200.1100, L3000.0375, L3100.5450, L800.1280, L501.6710, L503.6030 #### [facility] [address] [place], [address] CARTER w/ Reflex Mult Confirmon 09-21-2025 ANTI-DNA (DS)AB TNP Normal [facility] Comment on above: Performed By: #### L 3100.3425, L803.2200, L3400.0700, L3410.9992, L501.9985, L500.4050, L500.4100, L300.3900, L3890.6202, L503.6550, L3890.6006, L100.0100, L3200.1100, L3000.0375, L3100.5450, L800.1280, L501.6710, L503.6030 #### [facility] [address] [place], [address] ANTI-SS-A TNP Normal [facility] Comment on above: Performed By: #### L 3100.3425, L803.2200, L3400.0700, L3410.9992, L501.9985, L500.4050, L500.4100, L300.3900, L3890.6202, L503.6550, L3890.6006, L100.0100, L3200.1100, L3000.0375, L3100.5450, L800.1280, L501.6710, L503.6030 #### [facility] [address] [place], [address] ANTI-SS-B TNP Normal [facility] Comment on above: Performed By: #### L 3100.3425, L803.2200, L3400.0700, L3410.9992, L501.9985, L500.4050, L500.4100, L300.3900, L3890.6202, L503.6550, L3890.6006, L100.0100, L3200.1100, L3000.0375, L3100.5450, L800.1280, L501.6710, L503.6030 #### [facility] [address] [place], [address] Anti-Smooth Muscle ABSon ANTISMOOTH MUSC 6 Units Normal 0-19 [facility] Comment on above: Result Comment: Nega tive 0 - 19 Weak positive 20 - 30 Moderate to strong positive >30 Actin Antibodies are found in 52-85% of patients with autoimmune hepatitis or chronic active hepatitis and in 22% of patients with primary biliary cirrhosis. Performed By: #### L 3100.3425, L803.2200, L3400.0700, L3410.9992, L501.9985, L500.4050, L500.4100, L300.3900, L3890.6202, L503.6550, L3890.6006, L100.0100, L3200.1100, L3000.0375, L3100.5450, L800.1280, L501.6710, L503.6030 #### [facility] [address] [place], [address] Ceruloplasminon 09-21-2025 CERULOPLASMIN 31.0 mg/dL Normal 19.0-39.0 [facility] Comment on above: Result Comment: Perf ormed at: - [facility] [address] [id number] Front Office Director: Hernandez Jin PhD, Phone: [phone] Performed at: - [facility] [address] [id number] Front Office Director: Paris Mcfarland MD, Phone: [phone] Performed By: #### L 3100.3425, L803.2200, L3400.0700, L3410.9992, L501.9985, L500.4050, L500.4100, L300.3900, L3890.6202, L503.6550, L3890.6006, L100.0100, L3200.1100, L3000.0375, L3100.5450, L800.1280, L501.6710, L503.6030 #### [facility] [address] [place], [address] Hepatitis Panel Acuteon 11-1 COMMENT Comment Normal . [facility] Comment on above: Result Comment: Not infected with HCV unless early or acute infection is suspected (which may be delayed in an immunocompromised individual), or other evidence exists to indicate HCV infection. Performed By: #### L 3100.3425, L803.2200, L3400.0700, L3410.9992, L501.9985, L500.4050, L500.4100, L300.3900, L3890.6202, L503.6550, L3890.6006, L100.0100, L3200.1100, L3000.0375, L3100.5450, L800.1280, L501.6710, L503.6030 #### [facility] [address] [place], [address] HEP B CORE,IgM Negative Normal Negative [facility] Comment on above: Performed By: #### L 3100.3425, L803.2200, L3400.0700, L3410.9992, L501.9985, L500.4050, L500.4100, L300.3900, L3890.6202, L503.6550, L3890.6006, L100.0100, L3200.1100, L3000.0375, L3100.5450, L800.1280, L501.6710, L503.6030 #### [facility] [address] [place], [address] HEP B SURF AG Negative Normal Negative [facility] Comment on above: Performed By: #### L 3100.3425, L803.2200, L3400.0700, L3410.9992, L501.9985, L500.4050, L500.4100, L300.3900, L3890.6202, L503.6550, L3890.6006, L100.0100, L3200.1100, L3000.0375, L3100.5450, L800.1280, L501.6710, L503.6030 #### [facility] [address] [place], [address] HEP C VIRUS AB Non-Reactive Normal Non Reactive [facility] Comment on above: Performed By: #### L 3100.3425, L803.2200, L3400.0700, L3410.9992, L501.9985, L500.4050, L500.4100, L300.3900, L3890.6202, L503.6550, L3890.6006, L100.0100, L3200.1100, L3000.0375, L3100.5450, L800.1280, L501.6710, L503.6030 #### [facility] [address] [place], [address] HEPATITIS A-IgM Negative Normal Negative [facility] Comment on above: Result Comment: A ne gative anti-HAV IgM result suggests no recent or current HAV infection. Performed By: #### L 3100.3425, L803.2200, L3400.0700, L3410.9992, L501.9985, L500.4050, L500.4100, L300.3900, L3890.6202, L503.6550, L3890.6006, L100.0100, L3200.1100, L3000.0375, L3100.5450, L800.1280, L501.6710, L503.6030 #### [facility] [address] [place], [place], [id number] RL + Protein Elect, Serumon 09-21-2025 Albumin [Mass/Vol] 4.3 g/dL Normal 2.9-4.4 [facility] Comment on above: Order Comment: N Performed By: #### L 3100.3425, L803.2200, L3400.0700, L3410.9992, L501.9985, L500.4050, L500.4100, L300.3900, L3890.6202, L503.6550, L3890.6006, L100.0100, L3200.1100, L3000.0375, L3100.5450, L800.1280, L501.6710, L503.6030 #### [facility] [address] [place], [place], [id number] Albumin/Globulin [Mass ratio] 1.7 {ratio} Normal 0.7-1.7 [facility] Comment on above: Order Comment: N Performed By: #### L 3100.3425, L803.2200, L3400.0700, L3410.9992, L501.9985, L500.4050, L500.4100, L300.3900, L3890.6202, L503.6550, L3890.6006, L100.0100, L3200.1100, L3000.0375, L3100.5450, L800.1280, L501.6710, L503.6030 #### [facility] [address] [place], [address] HUALR-7-JGBF 0.2 g/dL Normal 0.0-0.4 [facility] Comment on above: Order Comment: N Performed By: #### L 3100.3425, L803.2200, L3400.0700, L3410.9992, L501.9985, L500.4050, L500.4100, L300.3900, L3890.6202, L503.6550, L3890.6006, L100.0100, L3200.1100, L3000.0375, L3100.5450, L800.1280, L501.6710, L503.6030 #### [facility] [address] [place], [address] INGSV-3-DUWT 0.6 g/dL Normal 0.4-1.0 [facility] Comment on above: Order Comment: N Performed By: #### L 3100.3425, L803.2200, L3400.0700, L3410.9992, L501.9985, L500.4050, L500.4100, L300.3900, L3890.6202, L503.6550, L3890.6006, L100.0100, L3200.1100, L3000.0375, L3100.5450, L800.1280, L501.6710, L503.6030 #### [facility] [address] [place], [address] BETA GLOBULIN 1.0 g/dL Normal 0.7-1.3 [facility] Comment on above: Order Comment: N Performed By: #### L 3100.3425, L803.2200, L3400.0700, L3410.9992, L501.9985, L500.4050, L500.4100, L300.3900, L3890.6202, L503.6550, L3890.6006, L100.0100, L3200.1100, L3000.0375, L3100.5450, L800.1280, L501.6710, L503.6030 #### [facility] [address] [place], [address] GAMMA GLOBULIN 0.7 g/dL Normal 0.4-1.8 [facility] Comment on above: Order Comment: N Performed By: #### L 3100.3425, L803.2200, L3400.0700, L3410.9992, L501.9985, L500.4050, L500.4100, L300.3900, L3890.6202, L503.6550, L3890.6006, L100.0100, L3200.1100, L3000.0375, L3100.5450, L800.1280, L501.6710, L503.6030 #### [facility] [address] [place], [address] Globulin (S) [Mass/Vol] 2.6 g/dL Normal 2.2-3.9 [facility] Comment on above: Order Comment: N Performed By: #### L 3100.3425, L803.2200, L3400.0700, L3410.9992, L501.9985, L500.4050, L500.4100, L300.3900, L3890.6202, L503.6550, L3890.6006, L100.0100, L3200.1100, L3000.0375, L3100.5450, L800.1280, L501.6710, L503.6030 #### [facility] [address] [place], [address] RL RESULT,S Comment Normal . [facility] Comment on above: Order Comment: N Result Comment: No m onoclonality detected. Performed By: #### L 3100.3425, L803.2200, L3400.0700, L3410.9992, L501.9985, L500.4050, L500.4100, L300.3900, L3890.6202, L503.6550, L3890.6006, L100.0100, L3200.1100, L3000.0375, L3100.5450, L800.1280, L501.6710, L503.6030 #### [facility] [address] [place], [address] IMMUNOGLOB A QN 181 mg/dL Normal 87-352 [facility] Comment on above: Order Comment: N Performed By: #### L 3100.3425, L803.2200, L3400.0700, L3410.9992, L501.9985, L500.4050, L500.4100, L300.3900, L3890.6202, L503.6550, L3890.6006, L100.0100, L3200.1100, L3000.0375, L3100.5450, L800.1280, L501.6710, L503.6030 #### [facility] [address] [place], [address] IMMUNOGLOB G QN 767 mg/dL Normal 586-1602 [facility] Comment on above: Order Comment: N Performed By: #### L 3100.3425, L803.2200, L3400.0700, L3410.9992, L501.9985, L500.4050, L500.4100, L300.3900, L3890.6202, L503.6550, L3890.6006, L100.0100, L3200.1100, L3000.0375, L3100.5450, L800.1280, L501.6710, L503.6030 #### [facility] [address] [place], [address] IMMUNOGLOB M QN 53 mg/dL Normal 26-217 [facility] Comment on above: Order Comment: N Performed By: #### L 3100.3425, L803.2200, L3400.0700, L3410.9992, L501.9985, L500.4050, L500.4100, L300.3900, L3890.6202, L503.6550, L3890.6006, L100.0100, L3200.1100, L3000.0375, L3100.5450, L800.1280, L501.6710, L503.6030 #### [facility] [address] [place], [address] M-Renard Not Observed Normal Not Observed [facility] Comment on above: Order Comment: N Performed By: #### L 3100.3425, L803.2200, L3400.0700, L3410.9992, L501.9985, L500.4050, L500.4100, L300.3900, L3890.6202, L503.6550, L3890.6006, L100.0100, L3200.1100, L3000.0375, L3100.5450, L800.1280, L501.6710, L503.6030 #### [facility] [address] [place], [address] NOTE: Comment Normal . [facility] Comment on above: Order Comment: N Result Comment: Prot ein electrophoresis scan will follow via computer, mail, or clinical laboratory service teacher delivery. Performed By: #### L 3100.3425, L803.2200, L3400.0700, L3410.9992, L501.9985, L500.4050, L500.4100, L300.3900, L3890.6202, L503.6550, L3890.6006, L100.0100, L3200.1100, L3000.0375, L3100.5450, L800.1280, L501.6710, L503.6030 #### [facility] [address] [place], [address] Protein [Mass/Vol] 6.9 g/dL Normal 6.0-8.5 [facility] Comment on above: Order Comment: N Performed By: #### L 3100.3425, L803.2200, L3400.0700, L3410.9992, L501.9985, L500.4050, L500.4100, L300.3900, L3890.6202, L503.6550, L3890.6006, L100.0100, L3200.1100, L3000.0375, L3100.5450, L800.1280, L501.6710, L503.6030 #### [facility] [address] [place], [place], [id number] Immunoglobulins G/A/M/Joseph IMMUNOGLOB E QN 18 IU/mL Normal 6-495 [facility] Comment on above: Order Comment: N Performed By: #### L 3100.3425, L803.2200, L3400.0700, L3410.9992, L501.9985, L500.4050, L500.4100, L300.3900, L3890.6202, L503.6550, L3890.6006, L100.0100, L3200.1100, L3000.0375, L3100.5450, L800.1280, L501.6710, L503.6030 #### [facility] [address] [place], [place], [id number] Anti-Mitochondrial ABon 11-0 ANTIMITOCHON AB <20.0 Normal 0.0-20.0 [facility] Comment on above: Result Comment: Nega tive 0.0 - 20.0 Equivocal 20.1 - 24.9 Positive >24.9 Mitochondrial (M2) Antibodies are found in 90-96% of patients with primary biliary cirrhosis. Performed By: #### L 3100.3425, L803.2200, L3400.0700, L3410.9992, L501.9985, L500.4050, L500.4100, L300.3900, L3890.6202, L503.6550, L3890.6006, L100.0100, L3200.1100, L3000.0375, L3100.5450, L800.1280, L501.6710, L503.6030 #### [facility] [address] [place], [address] CBC W/Diff, Automatedon 11-0 6-2024 Absolute Lymph 0.99 X10 3/uL Normal 0.83-4.51 [facility] Comment on above: Performed By: #### L 3100.3425, L803.2200, L3400.0700, L3410.9992, L501.9985, L500.4050, L500.4100, L300.3900, L3890.6202, L503.6550, L3890.6006, L100.0100, L3200.1100, L3000.0375, L3100.5450, L800.1280, L501.6710, L503.6030 #### [facility] [address] [place], [address] (303) Absolute Neut 1.6 X10 3/uL Low 2.0-7.7 [facility] Comment on above: Performed By: #### L 3100.3425, L803.2200, L3400.0700, L3410.9992, L501.9985, L500.4050, L500.4100, L300.3900, L3890.6202, L503.6550, L3890.6006, L100.0100, L3200.1100, L3000.0375, L3100.5450, L800.1280, L501.6710, L503.6030 #### [facility] [address] [place], [place], [id number] Basophils/100 WBC (Bld) 1.0 % Normal 0-1 [facility] Comment on above: Performed By: #### L 3100.3425, L803.2200, L3400.0700, L3410.9992, L501.9985, L500.4050, L500.4100, L300.3900, L3890.6202, L503.6550, L3890.6006, L100.0100, L3200.1100, L3000.0375, L3100.5450, L800.1280, L501.6710, L503.6030 #### [facility] [address] [place], [address] (138) Eosinophils/100 WBC (Bld) 3.6 % Normal 0-5 [facility] Comment on above: Performed By: #### L 3100.3425, L803.2200, L3400.0700, L3410.9992, L501.9985, L500.4050, L500.4100, L300.3900, L3890.6202, L503.6550, L3890.6006, L100.0100, L3200.1100, L3000.0375, L3100.5450, L800.1280, L501.6710, L503.6030 #### [facility] [address] [place], [address] Erythrocyte distribution width (RBC) [Ratio] 11.9 % Normal 11.6-14.6 [facility] Comment on above: Performed By: #### L 3100.3425, L803.2200, L3400.0700, L3410.9992, L501.9985, L500.4050, L500.4100, L300.3900, L3890.6202, L503.6550, L3890.6006, L100.0100, L3200.1100, L3000.0375, L3100.5450, L800.1280, L501.6710, L503.6030 #### [facility] [address] [place], [address] Hematocrit (Bld) [Volume fraction] 38.2 % Normal 37-47 [facility] Comment on above: Performed By: #### L 3100.3425, L803.2200, L3400.0700, L3410.9992, L501.9985, L500.4050, L500.4100, L300.3900, L3890.6202, L503.6550, L3890.6006, L100.0100, L3200.1100, L3000.0375, L3100.5450, L800.1280, L501.6710, L503.6030 #### [facility] [address] [place], [place], [id number] Hemoglobin (Bld) [Mass/Vol] 13.3 g/dL Normal 12.0-15.0 [facility] Comment on above: Performed By: #### L 3100.3425, L803.2200, L3400.0700, L3410.9992, L501.9985, L500.4050, L500.4100, L300.3900, L3890.6202, L503.6550, L3890.6006, L100.0100, L3200.1100, L3000.0375, L3100.5450, L800.1280, L501.6710, L503.6030 #### [facility] [address] [place], [place], [id number] IG% 0.000 Normal 0.0-0.9 [facility] Comment on above: Result Comment: IG% - Immature Granulocytes (promyelocytes, myelocytes and metamyelocytes) > 1% indicates that a LEFT SHIFT is Present. Performed By: #### L 3100.3425, L803.2200, L3400.0700, L3410.9992, L501.9985, L500.4050, L500.4100, L300.3900, L3890.6202, L503.6550, L3890.6006, L100.0100, L3200.1100, L3000.0375, L3100.5450, L800.1280, L501.6710, L503.6030 #### [facility] [address] [place], [place], [id number] (325) Lymphocytes/100 WBC (Bld) 32.2 % Normal 19-41 [facility] Comment on above: Performed By: #### L 3100.3425, L803.2200, L3400.0700, L3410.9992, L501.9985, L500.4050, L500.4100, L300.3900, L3890.6202, L503.6550, L3890.6006, L100.0100, L3200.1100, L3000.0375, L3100.5450, L800.1280, L501.6710, L503.6030 #### [facility] [address] [place], [address] (200) MCH (RBC) [Entitic mass] 30.6 pg Normal 27.0-32.0 [facility] Comment on above: Performed By: #### L 3100.3425, L803.2200, L3400.0700, L3410.9992, L501.9985, L500.4050, L500.4100, L300.3900, L3890.6202, L503.6550, L3890.6006, L100.0100, L3200.1100, L3000.0375, L3100.5450, L800.1280, L501.6710, L503.6030 #### [facility] [address] [facility] [place], [address] MCHC (RBC) [Mass/Vol] 34.8 g/dL Normal 32-36 [facility] Comment on above: Performed By: #### L 3100.3425, L803.2200, L3400.0700, L3410.9992, L501.9985, L500.4050, L500.4100, L300.3900, L3890.6202, L503.6550, L3890.6006, L100.0100, L3200.1100, L3000.0375, L3100.5450, L800.1280, L501.6710, L503.6030 #### [facility] [address] [place], [address] MCV (RBC) [Entitic vol] 88.0 fL Normal 81-99 [facility] Comment on above: Performed By: #### L 3100.3425, L803.2200, L3400.0700, L3410.9992, L501.9985, L500.4050, L500.4100, L300.3900, L3890.6202, L503.6550, L3890.6006, L100.0100, L3200.1100, L3000.0375, L3100.5450, L800.1280, L501.6710, L503.6030 #### [facility] [address] [facility] [place], [address] Monocytes/100 WBC (Bld) 9.8 % Normal 0-10 [facility] Comment on above: Performed By: #### L 3100.3425, L803.2200, L3400.0700, L3410.9992, L501.9985, L500.4050, L500.4100, L300.3900, L3890.6202, L503.6550, L3890.6006, L100.0100, L3200.1100, L3000.0375, L3100.5450, L800.1280, L501.6710, L503.6030 #### [facility] [address] [place], [address] Neutrophils/100 WBC (Bld) 53.4 % Normal 47-70 [facility] Comment on above: Performed By: #### L 3100.3425, L803.2200, L3400.0700, L3410.9992, L501.9985, L500.4050, L500.4100, L300.3900, L3890.6202, L503.6550, L3890.6006, L100.0100, L3200.1100, L3000.0375, L3100.5450, L800.1280, L501.6710, L503.6030 #### [facility] [address] [place], [place], [id number] (154) Nucleated RBC (Bld) [#/Vol] 0 10*3/uL Normal 0-5 [facility] Comment on above: Performed By: #### L 3100.3425, L803.2200, L3400.0700, L3410.9992, L501.9985, L500.4050, L500.4100, L300.3900, L3890.6202, L503.6550, L3890.6006, L100.0100, L3200.1100, L3000.0375, L3100.5450, L800.1280, L501.6710, L503.6030 #### [facility] [address] [place], [address] (658) Platelet mean volume (Bld) [Entitic vol] 9.7 fL Normal 6.2-12.0 [facility] Comment on above: Performed By: #### L 3100.3425, L803.2200, L3400.0700, L3410.9992, L501.9985, L500.4050, L500.4100, L300.3900, L3890.6202, L503.6550, L3890.6006, L100.0100, L3200.1100, L3000.0375, L3100.5450, L800.1280, L501.6710, L503.6030 #### [facility] [address] [facility] [place], [address] Platelets (Bld) [#/Vol] 193 10*3/uL Normal 150-450 [facility] Comment on above: Performed By: #### L 3100.3425, L803.2200, L3400.0700, L3410.9992, L501.9985, L500.4050, L500.4100, L300.3900, L3890.6202, L503.6550, L3890.6006, L100.0100, L3200.1100, L3000.0375, L3100.5450, L800.1280, L501.6710, L503.6030 #### [facility] [address] [place], [address] (666) RBC (Bld) [#/Vol] 4.34 10*6/uL Normal 4.2-5.4 [facility] Comment on above: Performed By: #### L 3100.3425, L803.2200, L3400.0700, L3410.9992, L501.9985, L500.4050, L500.4100, L300.3900, L3890.6202, L503.6550, L3890.6006, L100.0100, L3200.1100, L3000.0375, L3100.5450, L800.1280, L501.6710, L503.6030 #### [facility] [address] [place], [address] (405) RDW SD 38.0 fl Normal 35.1-43.9 [facility] Comment on above: Performed By: #### L 3100.3425, L803.2200, L3400.0700, L3410.9992, L501.9985, L500.4050, L500.4100, L300.3900, L3890.6202, L503.6550, L3890.6006, L100.0100, L3200.1100, L3000.0375, L3100.5450, L800.1280, L501.6710, L503.6030 #### [facility] [address] [place], [place], [phone] (208) WBC (Bld) [#/Vol] 3.1 10*3/uL Low 4.4-11.0 [facility] Comment on above: Performed By: #### L 3100.3425, L803.2200, L3400.0700, L3410.9992, L501.9985, L500.4050, L500.4100, L300.3900, L3890.6202, L503.6550, L3890.6006, L100.0100, L3200.1100, L3000.0375, L3100.5450, L800.1280, L501.6710, L503.6030 #### [facility] [address] [place], [place], [id number] CRPon 09-17-2025 C-REACTIVE PROT 5.80 mg/L High 0.0-3.0 [facility] Comment on above: Performed By: #### L 3100.3425, L803.2200, L3400.0700, L3410.9992, L501.9985, L500.4050, L500.4100, L300.3900, L3890.6202, L503.6550, L3890.6006, L100.0100, L3200.1100, L3000.0375, L3100.5450, L800.1280, L501.6710, L503.6030 #### [facility] [address] [place], [place], [id number] Comprehensive Metabolic Prof ilon 09-17-2025 Albumin [Mass/Vol] 4.6 g/dL Normal 3.5-5.0 [facility] Comment on above: Performed By: #### L 3100.3425, L803.2200, L3400.0700, L3410.9992, L501.9985, L500.4050, L500.4100, L300.3900, L3890.6202, L503.6550, L3890.6006, L100.0100, L3200.1100, L3000.0375, L3100.5450, L800.1280, L501.6710, L503.6030 #### [facility] [address] [place], [place], [id number] Albumin/Globulin [Mass ratio] 1.9 {ratio} Normal 0.9-2.4 [facility] Comment on above: Performed By: #### L 3100.3425, L803.2200, L3400.0700, L3410.9992, L501.9985, L500.4050, L500.4100, L300.3900, L3890.6202, L503.6550, L3890.6006, L100.0100, L3200.1100, L3000.0375, L3100.5450, L800.1280, L501.6710, L503.6030 #### [facility] [address] [place], [place], [id number] ALK PHOS 64 U/L Normal 35-104 [facility] Comment on above: Performed By: #### L 3100.3425, L803.2200, L3400.0700, L3410.9992, L501.9985, L500.4050, L500.4100, L300.3900, L3890.6202, L503.6550, L3890.6006, L100.0100, L3200.1100, L3000.0375, L3100.5450, L800.1280, L501.6710, L503.6030 #### [facility] [address] [place], [address] ALT [Catalytic activity/Vol] 27 U/L Normal <=34 [facility] Comment on above: Performed By: #### L 3100.3425, L803.2200, L3400.0700, L3410.9992, L501.9985, L500.4050, L500.4100, L300.3900, L3890.6202, L503.6550, L3890.6006, L100.0100, L3200.1100, L3000.0375, L3100.5450, L800.1280, L501.6710, L503.6030 #### [facility] [address] [place], [address] AST [Catalytic activity/Vol] 23 U/L Normal <=31 [facility] Comment on above: Performed By: #### L 3100.3425, L803.2200, L3400.0700, L3410.9992, L501.9985, L500.4050, L500.4100, L300.3900, L3890.6202, L503.6550, L3890.6006, L100.0100, L3200.1100, L3000.0375, L3100.5450, L800.1280, L501.6710, L503.6030 #### [facility] [address] [place], [address] Bilirubin [Mass/Vol] 0.53 mg/dL Normal 0.00-1.30 [facility] Comment on above: Performed By: #### L 3100.3425, L803.2200, L3400.0700, L3410.9992, L501.9985, L500.4050, L500.4100, L300.3900, L3890.6202, L503.6550, L3890.6006, L100.0100, L3200.1100, L3000.0375, L3100.5450, L800.1280, L501.6710, L503.6030 #### [facility] [address] [place], [place], [id number] BUN/CRE 14.9 RATIO Normal 10-20 [facility] Comment on above: Performed By: #### L 3100.3425, L803.2200, L3400.0700, L3410.9992, L501.9985, L500.4050, L500.4100, L300.3900, L3890.6202, L503.6550, L3890.6006, L100.0100, L3200.1100, L3000.0375, L3100.5450, L800.1280, L501.6710, L503.6030 #### [facility] [address] [place], [place], [phone] (501) Calcium [Mass/Vol] 10.0 mg/dL Normal 7.6-11.0 [facility] Comment on above: Performed By: #### L 3100.3425, L803.2200, L3400.0700, L3410.9992, L501.9985, L500.4050, L500.4100, L300.3900, L3890.6202, L503.6550, L3890.6006, L100.0100, L3200.1100, L3000.0375, L3100.5450, L800.1280, L501.6710, L503.6030 #### [facility] [address] [place], [place], [id number] (354) Chloride [Moles/Vol] 104 mmol/L Normal 98-108 [facility] Comment on above: Performed By: #### L 3100.3425, L803.2200, L3400.0700, L3410.9992, L501.9985, L500.4050, L500.4100, L300.3900, L3890.6202, L503.6550, L3890.6006, L100.0100, L3200.1100, L3000.0375, L3100.5450, L800.1280, L501.6710, L503.6030 #### [facility] [address] [place], [place], [phone] (242) CO2 [Moles/Vol] 25.8 mmol/L Normal 21.0-32.0 [facility] Comment on above: Performed By: #### L 3100.3425, L803.2200, L3400.0700, L3410.9992, L501.9985, L500.4050, L500.4100, L300.3900, L3890.6202, L503.6550, L3890.6006, L100.0100, L3200.1100, L3000.0375, L3100.5450, L800.1280, L501.6710, L503.6030 #### [facility] [address] [place], [place], [id number] Creatinine [Mass/Vol] 0.70 mg/dL Normal 0.70-1.20 [facility] Comment on above: Performed By: #### L 3100.3425, L803.2200, L3400.0700, L3410.9992, L501.9985, L500.4050, L500.4100, L300.3900, L3890.6202, L503.6550, L3890.6006, L100.0100, L3200.1100, L3000.0375, L3100.5450, L800.1280, L501.6710, L503.6030 #### [facility] [address] [place], [address] GAP 12 Normal 5-15 [facility] Comment on above: Performed By: #### L 3100.3425, L803.2200, L3400.0700, L3410.9992, L501.9985, L500.4050, L500.4100, L300.3900, L3890.6202, L503.6550, L3890.6006, L100.0100, L3200.1100, L3000.0375, L3100.5450, L800.1280, L501.6710, L503.6030 #### [facility] [address] [facility] [place], [address] GFR/1.73 sq M.predicted among non-blacks MDRD (S/P/Bld) [Vol rate/Area] 100 mL/min/{1.73_m2} Normal >60 [facility] Comment on above: Result Comment: mL/m in/1.73m2 CKD-EPI Creatinine Equation (2020) Performed By: #### L 3100.3425, L803.2200, L3400.0700, L3410.9992, L501.9985, L500.4050, L500.4100, L300.3900, L3890.6202, L503.6550, L3890.6006, L100.0100, L3200.1100, L3000.0375, L3100.5450, L800.1280, L501.6710, L503.6030 #### [facility] [address] [place], [address] Globulin (S) [Mass/Vol] 2.4 g/dL Normal 2.2-4.2 [facility] Comment on above: Performed By: #### L 3100.3425, L803.2200, L3400.0700, L3410.9992, L501.9985, L500.4050, L500.4100, L300.3900, L3890.6202, L503.6550, L3890.6006, L100.0100, L3200.1100, L3000.0375, L3100.5450, L800.1280, L501.6710, L503.6030 #### [facility] [address] [place], [place], [id number] (212) Glucose [Mass/Vol] 114 mg/dL High 70-99 [facility] Comment on above: Performed By: #### L 3100.3425, L803.2200, L3400.0700, L3410.9992, L501.9985, L500.4050, L500.4100, L300.3900, L3890.6202, L503.6550, L3890.6006, L100.0100, L3200.1100, L3000.0375, L3100.5450, L800.1280, L501.6710, L503.6030 #### [facility] [address] [place], [address] Potassium [Moles/Vol] 3.9 mmol/L Normal 3.3-5.1 [facility] Comment on above: Performed By: #### L 3100.3425, L803.2200, L3400.0700, L3410.9992, L501.9985, L500.4050, L500.4100, L300.3900, L3890.6202, L503.6550, L3890.6006, L100.0100, L3200.1100, L3000.0375, L3100.5450, L800.1280, L501.6710, L503.6030 #### [facility] [address] [place], [address] Sodium [Moles/Vol] 142 mmol/L Normal 133-145 [facility] Comment on above: Performed By: #### L 3100.3425, L803.2200, L3400.0700, L3410.9992, L501.9985, L500.4050, L500.4100, L300.3900, L3890.6202, L503.6550, L3890.6006, L100.0100, L3200.1100, L3000.0375, L3100.5450, L800.1280, L501.6710, L503.6030 #### [facility] [address] [place], [address] T PROT 7.0 g/dL Normal 5.9-8.4 [facility] Comment on above: Performed By: #### L 3100.3425, L803.2200, L3400.0700, L3410.9992, L501.9985, L500.4050, L500.4100, L300.3900, L3890.6202, L503.6550, L3890.6006, L100.0100, L3200.1100, L3000.0375, L3100.5450, L800.1280, L501.6710, L503.6030 #### [facility] [address] [place], [place], [address] Urea nitrogen [Mass/Vol] 10 mg/dL Normal 4-19 [facility] Comment on above: Performed By: #### L 3100.3425, L803.2200, L3400.0700, L3410.9992, L501.9985, L500.4050, L500.4100, L300.3900, L3890.6202, L503.6550, L3890.6006, L100.0100, L3200.1100, L3000.0375, L3100.5450, L800.1280, L501.6710, L503.6030 #### [facility] [address] [place], [place], [id number] Ferritinon 09-17-2025 Ferritin [Mass/Vol] 131 ng/mL Normal 22-378 [facility] Comment on above: Performed By: #### L 3100.3425, L803.2200, L3400.0700, L3410.9992, L501.9985, L500.4050, L500.4100, L300.3900, L3890.6202, L503.6550, L3890.6006, L100.0100, L3200.1100, L3000.0375, L3100.5450, L800.1280, L501.6710, L503.6030 #### [facility] [address] [place], [place], [address] HIVon 09-17-2025 HIV Non-Reactive Normal Nonreactive [facility] Comment on above: Result Comment: Non- Reactive Reactive Repeatedly reactive samples must be confirmed according to CDC recommended confirmatory algorithms. The subresults for either HIVAG or AHIV can be used as an aid in the selection of the confirmation algorithm for reactive samples. Send out specimens with Reactive results to [facility] for confirmation. Order the HIV antibody detection and differentiation: [id number] Performed By: #### L 3100.3425, L803.2200, L3400.0700, L3410.9992, L501.9985, L500.4050, L500.4100, L300.3900, L3890.6202, L503.6550, L3890.6006, L100.0100, L3200.1100, L3000.0375, L3100.5450, L800.1280, L501.6710, L503.6030 #### [facility] [address] [facility] [place], [address] Hemoglobin A1con 09-17-2025 HbA1c (Bld) [Mass fraction] 5.3 % Normal <=5.6 [facility] Comment on above: Result Comment: Norm al < 5.7 % Prediabetic 5.7 - 6.4 % Diabetic >or= 6.5 % Please note range changes. Performed By: #### L 3100.3425, L803.2200, L3400.0700, L3410.9992, L501.9985, L500.4050, L500.4100, L300.3900, L3890.6202, L503.6550, L3890.6006, L100.0100, L3200.1100, L3000.0375, L3100.5450, L800.1280, L501.6710, L503.6030 #### [facility] [address] [facility] [place], [address] Hepatitis B Surface Antibody on 09-17-2025 HEP B Surf Ab Non-Reactive Normal [facility] Comment on above: Result Comment: <8.5 mIU/mL: Non-Reactive 8.5<= x <11.5 mIU/mL: Indeterminate >=11.5 mIU/mL: Reactive Non Reactive: Inconsistent with immunity less than <10 mIU/mL Reactive: Consistent with immunity greater than or equal to 10 mIU/mL Performed By: #### L 3100.3425, L803.2200, L3400.0700, L3410.9992, L501.9985, L500.4050, L500.4100, L300.3900, L3890.6202, L503.6550, L3890.6006, L100.0100, L3200.1100, L3000.0375, L3100.5450, L800.1280, L501.6710, L503.6030 #### [facility] [address] [place], [place], [id number] Iron+Iron Binding Capacityon 09-17-2025 Iron [Mass/Vol] 77 ug/dL Normal 50-170 [facility] Comment on above: Performed By: #### L 3100.3425, L803.2200, L3400.0700, L3410.9992, L501.9985, L500.4050, L500.4100, L300.3900, L3890.6202, L503.6550, L3890.6006, L100.0100, L3200.1100, L3000.0375, L3100.5450, L800.1280, L501.6710, L503.6030 #### [facility] [address] [place], [address] IRON SATURATION 25.2 Normal 13-59 [facility] Comment on above: Performed By: #### L 3100.3425, L803.2200, L3400.0700, L3410.9992, L501.9985, L500.4050, L500.4100, L300.3900, L3890.6202, L503.6550, L3890.6006, L100.0100, L3200.1100, L3000.0375, L3100.5450, L800.1280, L501.6710, L503.6030 #### [facility] [address] [place], [address] (428) TIBC 306 ug/dL Normal 250-450 [facility] Comment on above: Performed By: #### L 3100.3425, L803.2200, L3400.0700, L3410.9992, L501.9985, L500.4050, L500.4100, L300.3900, L3890.6202, L503.6550, L3890.6006, L100.0100, L3200.1100, L3000.0375, L3100.5450, L800.1280, L501.6710, L503.6030 #### [facility] [address] [place], [address] UIBC 229 ug/dL Normal 228-428 [facility] Comment on above: Performed By: #### L 3100.3425, L803.2200, L3400.0700, L3410.9992, L501.9985, L500.4050, L500.4100, L300.3900, L3890.6202, L503.6550, L3890.6006, L100.0100, L3200.1100, L3000.0375, L3100.5450, L800.1280, L501.6710, L503.6030 #### [facility] [address] [place], [address] Lipid Profileon 09-17-2025 CHOL:HDL 3.27 Normal [facility] Comment on above: Performed By: #### L 3100.3425, L803.2200, L3400.0700, L3410.9992, L501.9985, L500.4050, L500.4100, L300.3900, L3890.6202, L503.6550, L3890.6006, L100.0100, L3200.1100, L3000.0375, L3100.5450, L800.1280, L501.6710, L503.6030 #### [facility] [address] [facility] [place], [address] Cholesterol [Mass/Vol] 193 mg/dL Normal <=200 [facility] Comment on above: Result Comment: Chol esterol level, Desirable <200 mg/dL Borderline high cholesterol 200-239 mg/dL High cholesterol >=240 mg/dL Recommendations of the NCEP Adult Treatment Panel for the following risk-cutoff thresholds for the [place] population. Performed By: #### L 3100.3425, L803.2200, L3400.0700, L3410.9992, L501.9985, L500.4050, L500.4100, L300.3900, L3890.6202, L503.6550, L3890.6006, L100.0100, L3200.1100, L3000.0375, L3100.5450, L800.1280, L501.6710, L503.6030 #### [facility] [address] [facility] [place], [address] Cholesterol in HDL [Mass/Vol] 59 mg/dL Normal [facility] Comment on above: Result Comment: Jenelle onal Cholesterol Education Program (NCEP) guidelines: <40 mg/dL: Low HDL-cholesterol (major risk factor for CHD) >= 60 mg/dL: High HDL-cholesterol (negative risk factor for CHD) HDL-cholesterol is affected by a number of factors, e.g. smoking, exercise, hormones, sex and age. Performed By: #### L 3100.3425, L803.2200, L3400.0700, L3410.9992, L501.9985, L500.4050, L500.4100, L300.3900, L3890.6202, L503.6550, L3890.6006, L100.0100, L3200.1100, L3000.0375, L3100.5450, L800.1280, L501.6710, L503.6030 #### [facility] [address] [facility] [place], [address] Cholesterol in LDL [Mass/Vol] 122 mg/dL Normal [facility] Comment on above: Result Comment: Bord zseurd=671-384 mg/dL Higher Zckq=190 mg/dL or greater Alexandra Equation 2020 for LDL-C Performed By: #### L 3100.3425, L803.2200, L3400.0700, L3410.9992, L501.9985, L500.4050, L500.4100, L300.3900, L3890.6202, L503.6550, L3890.6006, L100.0100, L3200.1100, L3000.0375, L3100.5450, L800.1280, L501.6710, L503.6030 #### [facility] [address] [place], [place], [id number] Cholesterol in VLDL [Mass/Vol] 13 mg/dL Normal 5-40 [facility] Comment on above: Performed By: #### L 3100.3425, L803.2200, L3400.0700, L3410.9992, L501.9985, L500.4050, L500.4100, L300.3900, L3890.6202, L503.6550, L3890.6006, L100.0100, L3200.1100, L3000.0375, L3100.5450, L800.1280, L501.6710, L503.6030 #### [facility] [address] [place], [address] Triglyceride [Mass/Vol] 66 mg/dL Normal [facility] Comment on above: Result Comment: The drugs N-Acetylcysteine and Metamizole may falsely depress this assay. Normal range: <150 mg/dL Borderline High: 150-199 mg/dL High: 200-499 mg/dL Very High: >500 mg/dL Performed By: #### L 3100.3425, L803.2200, L3400.0700, L3410.9992, L501.9985, L500.4050, L500.4100, L300.3900, L3890.6202, L503.6550, L3890.6006, L100.0100, L3200.1100, L3000.0375, L3100.5450, L800.1280, L501.6710, L503.6030 #### [facility] [address] [place], [address] Prothrombin Time w/INRon INR Coag (PPP) [Relative time] 1.0 {INR} Normal [facility] Comment on above: Performed By: #### L 3100.3425, L803.2200, L3400.0700, L3410.9992, L501.9985, L500.4050, L500.4100, L300.3900, L3890.6202, L503.6550, L3890.6006, L100.0100, L3200.1100, L3000.0375, L3100.5450, L800.1280, L501.6710, L503.6030 #### [facility] [address] [place], [place], [address] PT Coag (PPP) [Time] 13.4 s Normal 11.7-14.9 [facility] Comment on above: Performed By: #### L 3100.3425, L803.2200, L3400.0700, L3410.9992, L501.9985, L500.4050, L500.4100, L300.3900, L3890.6202, L503.6550, L3890.6006, L100.0100, L3200.1100, L3000.0375, L3100.5450, L800.1280, L501.6710, L503.6030 #### [facility] [address] [place], [place], [address] Gastroenterology Visit Repor ton 09-16-2025 Gastroenterology Visit Report [facility] Gastroenterology [address] [place] [address] OFFICE VISIT Date of Service: 09/16/25 MR#: [id number] Acct: [id number] Name: LANCE ANGELES Rep #: [id number] : 1965 Provider: Dr. Ben salas MD Age/Sex: 60/F [place] [facility] [place]: Signed Intake Vital Signs 08/06/25 06:35 Height 5 ft 2 in Intake Visit Reasons: follow up from an upper GI Chief Complaint: Hepatic fibrosis Allergies Environmental Allergies: Uncoded Allergy (Mild, Verified 09/16/25 08:27) SNEEZE, ITCHY EYES, RUNNY NOSE Medications ???Medication ???Instructions ???Recorded ???Confirmed ???Type cetirizine 10 mg capsule (Zyrtec) 10 mg PO QDAY 01/16/18 09/16/25 H istory cholecalciferol (vitamin D3) 50 50 mcg PO DAILY 05/06/20 09/16/25 History mcg (2,000 unit) capsule multivitamin 1 tab PO DAILY 05/06/20 09/16/25 H istory clobetasol 0.05 % topical ointment 1 applic topical QHS #60 grams 0 12/03/23 09/16/25 Rx calcium 250 mg (as 2 tab PO HS 03/25/25 09/16/25 Hist ory citrate)-vitamin D3 5 mcg (200 unit) tablet (Citracal Regular) levothyroxine 88 mcg tablet 88 mcg PO DAILY 03/25/25 09/16/25 History covid vaccine #1 ea 07/31/25 09/16/25 Rx hepatitis B virus vacc.rec(PF) 5 1 ml subcut ONCE #5 mL 07/31/25 Rx mcg/0.5 mL intramuscular susp famotidine 40 mg tablet 20 mg (1/2 x 40 mg) PO QDAY #30 09/16/25 Rx tabs PFSH Medical History Wears glasses Post-menopausal Thyroid disease Back pain Dietary restriction Gastric reflux Leg cramps Former smoker History of stress test Hepatic fibrosis Transaminitis Vertigo Muscle cramps Preventative health care Elevated liver enzymes Graves disease Surgical History History of colonoscopy History of esophagogastroduodenoscopy (EGD) S/P wisdom tooth extraction Family History Father Heart disease Mother No problems noted. 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 PCP referred for hepatic fibrosis. US abd/ elastography ..25- Liver measures 16.1cm, Stiffness 9.4 kPa 5.14.25 Fib-4 1.74 8.5.25 : Patient was referred by PCP for elevated [...] liver disease. Her father, grandfather had RA EGD 9..25- Normal esophagus, stomach and small bowel, PATH: Negative for inflammation or goblet cell metaplasia OV 11..25- Pt stable since last visit. She said she tried stopping Omeprazole and switching to Pepcid and she continued to have acid reflux especially at night. No other concerns. ROS Const Constitutional: No fatigue, fever(s) or weight change ENT ENT: No [...] nausea/dyspepsia, pain with swallowing, vomiting or other Genitourinary-Female: No difficulty urinating or burning urination Musc M (more content not included)... Normal [facility] EGD Reporton 08-06-2025 EGD Report [facility] Medical Records Department [address] [place] [address] EGD Report MR#: [id number] Acct: [id number] Name: LANCE ANGELES Rep #: [id number] : 1965 60 From: Adrian Lopez DO PCP: Dr. Erma Quiros MD Status:[facility] Patient Name: Lance Angeles Procedure Date: 08/06/2025 7:36 AM Date of : 1965 Age: 60 Procedure: Upper GI endoscopy Indications: Heartburn, Suspected esophageal reflux Providers: Adrian Lopez DO Referring MD: Erma Quiros MD Medicines: Monitored Anesthesia Care Patient Profile: This is a 60 year old female. Refer to note in patient chart for documentation of history and physical. Patient has symptoms of chronic heartburn. Complications: No immediate complications. Procedure: Pre-Anesthesia Assessment: - Prior to the procedure, a History and Physical was performed, and patient medications and allergies were reviewed. The patient is competent. The risks and benefits of the procedure and the sedation options and risks were discussed with the patient. All questions were answered and informed consent was obtained. Patient identification and proposed procedure were verified by the physician. Mental Status Examination: alert and oriented. Airway Examination: normal oropharyngeal airway and neck mobility. Respiratory Examination: clear to auscultation. CV Examination: normal. Prophylactic Antibiotics: The patient does not require prophylactic antibiotics. Prior Anticoagulants: The patient has taken no anticoagulant or antiplatelet agents except for NSAID medication. ASA Grade Assessment: II - A patient with mild systemic disease. After reviewing the risks and benefits, the patient was deemed in satisfactory condition to undergo the procedure. The anesthesia plan was to use monitored anesthesia care (MAC). Immediately prior to administration of medications, the patient was re-assessed for adequacy to receive sedatives. The heart rate, respiratory rate, oxygen saturations, blood pressure, adequacy of pulmonary ventilation, and response to care were monitored throughout the procedure. The physical status of the patient was re-assessed after the procedure. After obtaining informed consent, the endoscope was passed under direct vision. Throughout the procedure, the patient's blood pressure, pulse, and oxygen saturations were monitored continuously. The gastroscope was introduced through the mouth, and advanced to the second part of duodenum. The upper GI endoscopy was accomplished without difficulty. The patient tolerated the procedure well. Scope In: 7:49:17 AM Scope Out: 7:51:58 AM Total Procedure Duration Time 0 hours 2 minutes 41 seconds Findings: No gross lesions were noted in the entire esophagus. Biopsies were taken with a cold forceps for histology. Verification of patient identification for the specimen was done. Estimated blood loss was minimal. The entire examined stomach was normal. The examined duodenum was normal. Impression: - No gross lesions in the entire esophagus. Biopsied. - Normal stomach. - Normal examined duodenum. Recommendation: - Discharge patient to home. - Resume previous diet. - Continue present medications. - Await pathology results. Procedure Code(s): --- Professional --- 74104, Esophagogastroduodenoscopy, flexible, transoral; with biopsy, single or multiple CPT copyright 2021 [employer]. All rights reserved. The codes documented in this report are preliminary and upon button facing machine operator review may be revised to meet current compliance requirements. Adrian Lopez DO 08/06/2025 7:59:21 AM This report has been signed electronically. Number of Addenda: 0 Note Initiated On: 08/06/2025 7:36 AM 08/06/25 0759 Date Adrian Penaloza Signature: Date (if indicated) CC: Dr. Erma Quiros MD; Adrian Lopez DO Date Dictated: 08/06/25735 Date Transcribed: Paramedical Aide: MAXINE Signed Normal [facility] MR/OP.PROVATon 08-06-2025 MR/OP.PROVAT [facility] Medical Records Department [address] [place] [address] Provation Physician Letter MR#: [id number] Acct: [id number] Name: LANCE ANGELES Rep #: [id number] : 1965 60 From: Adrian Lopez DO PCP: Dr. Erma Quiros MD [place] [facility] [place] Erma Quiros MD [address] [place] [address] [place] [address] Re : Upper GI endoscopy procedure for Lance Angeles Dear Dr. Quiros This procedure was performed on July. My impressions and recommendations are as follows: Impressions : - No gross lesions in the entire esophagus. Biopsied. - Normal stomach. - Normal examined duodenum. Recommendations : - Discharge patient to home. - Resume previous diet. - Continue present medications. - Await pathology results. My findings are described in the full procedure note, which is enclosed. If I can be of further assistance, please feel free to contact me at . Sincerely, Adrian Lopez DO 08/06/2025 7:59:21 AM This report has been signed electronically. 08/06/25 0759 Date Adrian Penaloza Signature: Date (if indicated) CC: Dr. Erma Quiros MD; Adrian Lopez DO Date Dictated: 08/06/25735 Date Transcribed: Paramedical Aide: MAXINE Signed Normal [facility] MR/POSTOP.ANEon 08-06-2025 MR/POSTOP.ANE [facility] Medical Records Department [address] [place] [address] Anesthesia Postop Eval I 08/06/25 0803 MR#: [id number] Acct: [id number] Name: LANCE ANGELES Rep #: [id number] : 1965 60 From: Devante Belcher PCP: Dr. Erma Quiros MD Status:[facility] Y Race: C Location: [place] [address] Anesthesia: Postop Eval I Current Vital Signs Temperature: 97.7 F Pulse Rate: 67 Blood Pressure: 94/58 Respiratory Rate: 16 Pulse Ox: 97 Oxygen Delivery Method: Room Air Assessment Airway patent: Yes Spontaneous unlabored respirations: Yes Mental status: Asleep nausea: No Vomiting: No Anesthesia Complication: No Fluid Hydration Crystalloid volume administer (ml): 400 Total IV fluid infused: 400 Progress Note Anesthesia document: Postop Eval 1 completed: Yes 08/06/25 08 Date Devante Everett Signature: Date CC: Signed Normal [facility] MR/OTIFQBBQ2kv 08-06-2025 MR/POSTOPAN2 [facility] Medical Records Department [address] [place] [address] Anesthesia Postop Eval II 08/06/25 1045 MR#: [id number] Acct: [id number] Name: LANCE ANGELES Rep #: [id number] : 1965 60 From: Jerrica Silvestre CRNA PCP: Dr. Erma Quiros MD Status:[facility] Y Race: C Location: EN Anesthesia Postop Eval I Sum Postop Eval Completion status Anesthesia document: Postop Eval 1 completed: Yes Anesthesia Postop Eval I Summary Anesthesia Postop Eval I Summary: Anesthesia Postop Eval I: Assessment Summary Airway patent Yes 08/06/25 08:04 [email or web address] Spontaneous unlabored Yes 08/06/25 08:04 [email or web address] respirations Mental status Asleep 08/06/25 08:04 [email or web address] nausea No 08/06/25 08:04 [email or web address] Vomiting No 08/06/25 08:04 [email or web address] Anesthesia Postop Eval I: Fluid Summary Crystalloid volume administer 400 08/06/25 08:04 [email or web address] (ml) Colloids volume administered ( ml) Blood Product volume administered (ml) Total IV fluid infused 400 08/06/25 08:04 [email or web address] Anesthesia Postop Eval I: Summary Notes Anesthesia Complication No 08/06/25 08:04 [email or web address] Anesthesia Complication Comment: Post-operative progress note Anesthesia: Postop Eval II Evaluation Mental status: Awake and Calm Pain Level: 0 nausea: No Vomiting: No Complications Anesthesia Complication: No 08/06/25 1045 Date Jerrica Everett Signature: Date CC: Signed Normal [facility] Surgery Specimen Level Jose F 08-06-2025 Surgery Specimen Level IV Patient Age/Sex Location Account Attending Physician LANCE ANGELES 60/F EN [id number] Adrian Lopez DO Specimen: [id number] Received: 08/06/25 Status: DOMINGO Juany Num: [id number] Spec Type: EGD BIOPSY Subm Dr: Adrian Lopez DO HEADER OPERATION: EGD with biopsy PRE-OP DIAGNOSIS: GERD TISSUE SUBMITTED: A- Distal esophagus biopsy MICROSCOPIC DIAGNOSIS A. Distal esophagus, biopsy: * Squamous mucosa with reactive changes. * Columnar mucosa negative for goblet cell metaplasia. MICROSCOPIC DESCRIPTION Slides are reviewed. GROSS DESCRIPTION A. Received in fixative is one container labeled with the patient's name and designated Distal esophagus biopsy. The specimen consists of two irregular fragments of rosales tissue, each measuring 0.5 cm. The specimen is totally submitted in one cassette. [place] 08/06/2025 CPT:21792 Patient Age/Sex Location Account Attending Physician LANCE ANGELES 60/F EN [id number] Adrian Lopez DO Signed (signature on file) Dr. Annabel Shafer MD 08/13/25 1427 Normal [facility] Comment on above: Performed By: #### L 3100.3425, L803.2200, L3400.0700, L3410.9992, L501.9985, L500.4050, L500.4100, L300.3900, L3890.6202, L503.6550, L3890.6006, L100.0100, L3200.1100, L3000.0375, L3100.5450, L800.1280, L501.6710, L503.6030 #### [facility] Laboratory [facility] [address] [place], [place], [id number] Gastroenterology Visit Repor ton 06-16-2025 Gastroenterology Visit Report [facility] Gastroenterology [address] [place] [address] OFFICE VISIT Date of Service: 06/16/25 MR#: [id number] Acct: [id number] Name: LANCE ANGELES Rep #: [id number] : 1965 Provider: Dr. 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 Fib-4 1.74 06/16/2025: Patient was referred by [...] nausea/dyspepsia, pain with swallowing, vomiting or other Genitourinary-Female: No difficulty urinating or burning urination Musc Musculoskeletal: Positive for back pain, muscle cramps and muscle weakness; No abnormal gait or joint pain Sk (more content not included)... Normal [facility] ABD Limited w/ Elastographyo n 04-28-2025 ABD Limited w/ Elastography [facility] [address] [place], [place] [address] ABD Limited w/ Elastography MR#: [id number] Acct: [id number] Name: LANCE ANGELES Rep #: [id number] : 1965 F 59 From: Handy yoo MD PCP: Dr. Erma Quiros MD Status: [facility] Study: ABD Limited w/ Elastography Date of Exam: 04/12 06/05 Exam# [id number] Ordering Dr: Erma Quiros MD PROCEDURE: ABD LIMITED W/ ELASTOGRAPHY REASON FOR EXAM: TRANSAMINITIS COMPARISON: None. TECHNIQUE: Right upper quadrant abdominal ultrasound. Katie ElastQ Imaging shear wave elastography for non- invasive assessment of liver tissue stiffness. Katie EPIQ Elite. FINDINGS: LIVER: Size: Unremarkable Length: [...] measurement may be in question. Reading Location: [place] [address] CC: Dr. Erma Quiros MD Paramedical Aide: Signed Normal [facility] Anion gap in Serum or Plasma Ordered By: Erma Quiros on 04-13-2025 Anion gap [Moles/Vol] 11 mmol/L 5-15 [facility] BUN/creatinine ratioOrdered By: Erma Quiros on 04-13-2025 Urea nitrogen/Creatinine [Mass ratio] 18.4 mg/mg 10-20 [facility] Bilirubin, totalOrdered By: Erma Quiros on 04-13-2025 Bilirubin [Mass/Vol] 0.43 mg/dL 0.00-1.30 [facility] Carbon dioxide, total [Moles /volume] in Central venous bloodOrdered By: Erma Quiros on 04-13-2025 CO2 [Moles/Vol] 25.5 mmol/L 21.0-32.0 [facility] Chloride assayOrdered By: Alisa Quiros on 04-13-2025 Chloride [Moles/Vol] 105 mmol/L 98-108 [facility] Comprehensive Metabolic Prof ilon 04-13-2025 Albumin [Mass/Vol] 4.6 g/dL Normal 3.5-5.0 [facility] Comment on above: Order Comment: DR. Monik BLANCO ORDERED CMPDR. TORRES ORDERED ALL LABS Performed By: #### L 3100.3425, L803.2200, L3400.0700, L3410.9992, L501.9985, L500.4050, L500.4100, L300.3900, L3890.6202, L503.6550, L3890.6006, L100.0100, L3200.1100, L3000.0375, L3100.5450, L800.1280, L501.6710, L503.6030 #### [facility] Laboratory [address] [place], [place], [id number] Albumin/Globulin [Mass ratio] 2.1 {ratio} Normal 0.9-2.4 [facility] Comment on above: Order Comment: DR. Monik BLANCO ORDERED CMPDR. TORRES ORDERED ALL LABS Performed By: #### L 3100.3425, L803.2200, L3400.0700, L3410.9992, L501.9985, L500.4050, L500.4100, L300.3900, L3890.6202, L503.6550, L3890.6006, L100.0100, L3200.1100, L3000.0375, L3100.5450, L800.1280, L501.6710, L503.6030 #### [facility] [address] [place], [place], [phone] ALK PHOS 51 U/L Normal 35-104 [facility] Comment on above: Order Comment: DR. Monik BLANCO ORDERED CMPDR. TORRES ORDERED ALL LABS Performed By: #### L 3100.3425, L803.2200, L3400.0700, L3410.9992, L501.9985, L500.4050, L500.4100, L300.3900, L3890.6202, L503.6550, L3890.6006, L100.0100, L3200.1100, L3000.0375, L3100.5450, L800.1280, L501.6710, L503.6030 #### [facility] [address] [place], [place], [phone] (902) ALT [Catalytic activity/Vol] 55 U/L High <=34 [facility] Comment on above: Order Comment: DR. Monik BLANCO ORDERED JHONATANDR. BRIAN ORDERED ALL LABS Performed By: #### L 3100.3425, L803.2200, L3400.0700, L3410.9992, L501.9985, L500.4050, L500.4100, L300.3900, L3890.6202, L503.6550, L3890.6006, L100.0100, L3200.1100, L3000.0375, L3100.5450, L800.1280, L501.6710, L503.6030 #### [facility] [address] [place], [address] AST [Catalytic activity/Vol] 43 U/L High <=31 [facility] Comment on above: Order Comment: DR. Monik BLANCO ORDERED JHONATANDR. BRIAN ORDERED ALL LABS Performed By: #### L 3100.3425, L803.2200, L3400.0700, L3410.9992, L501.9985, L500.4050, L500.4100, L300.3900, L3890.6202, L503.6550, L3890.6006, L100.0100, L3200.1100, L3000.0375, L3100.5450, L800.1280, L501.6710, L503.6030 #### [facility] [address] [place], [place], [id number] Bilirubin [Mass/Vol] 0.43 mg/dL Normal 0.00-1.30 [facility] Comment on above: Order Comment: DR. Monik BLANCO ORDERED CMPDR. TORRES ORDERED ALL LABS Performed By: #### L 3100.3425, L803.2200, L3400.0700, L3410.9992, L501.9985, L500.4050, L500.4100, L300.3900, L3890.6202, L503.6550, L3890.6006, L100.0100, L3200.1100, L3000.0375, L3100.5450, L800.1280, L501.6710, L503.6030 #### [facility] [address] [place], [address] BUN/CRE 18.4 RATIO Normal 10-20 [facility] Comment on above: Order Comment: DR. Monik BLANCO ORDERED CMPDR. TORRES ORDERED ALL LABS Performed By: #### L 3100.3425, L803.2200, L3400.0700, L3410.9992, L501.9985, L500.4050, L500.4100, L300.3900, L3890.6202, L503.6550, L3890.6006, L100.0100, L3200.1100, L3000.0375, L3100.5450, L800.1280, L501.6710, L503.6030 #### [facility] [address] [place], [place], [id number] Calcium [Mass/Vol] 9.9 mg/dL Normal 7.6-11.0 [facility] Comment on above: Order Comment: DR. Monik BLANCO ORDERED CMPDR. TORRES ORDERED ALL LABS Performed By: #### L 3100.3425, L803.2200, L3400.0700, L3410.9992, L501.9985, L500.4050, L500.4100, L300.3900, L3890.6202, L503.6550, L3890.6006, L100.0100, L3200.1100, L3000.0375, L3100.5450, L800.1280, L501.6710, L503.6030 #### [facility] [address] [place], [address] Chloride [Moles/Vol] 105 mmol/L Normal 98-108 [facility] Comment on above: Order Comment: DR. Monik BLANCO ORDERED CMPDR. TORRES ORDERED ALL LABS Performed By: #### L 3100.3425, L803.2200, L3400.0700, L3410.9992, L501.9985, L500.4050, L500.4100, L300.3900, L3890.6202, L503.6550, L3890.6006, L100.0100, L3200.1100, L3000.0375, L3100.5450, L800.1280, L501.6710, L503.6030 #### [facility] [address] [place], [address] (721) CO2 [Moles/Vol] 25.5 mmol/L Normal 21.0-32.0 [facility] Comment on above: Order Comment: DR. Monik BLANCO ORDERED CMPDR. TORRES ORDERED ALL LABS Performed By: #### L 3100.3425, L803.2200, L3400.0700, L3410.9992, L501.9985, L500.4050, L500.4100, L300.3900, L3890.6202, L503.6550, L3890.6006, L100.0100, L3200.1100, L3000.0375, L3100.5450, L800.1280, L501.6710, L503.6030 #### [facility] [address] [facility] [place], [address] (885) Creatinine [Mass/Vol] 0.70 mg/dL Normal 0.70-1.20 [facility] Comment on above: Order Comment: DR. Monik BLANCO ORDERED CMPDR. TORRES ORDERED ALL LABS Performed By: #### L 3100.3425, L803.2200, L3400.0700, L3410.9992, L501.9985, L500.4050, L500.4100, L300.3900, L3890.6202, L503.6550, L3890.6006, L100.0100, L3200.1100, L3000.0375, L3100.5450, L800.1280, L501.6710, L503.6030 #### [facility] [address] [facility] [address] [place], [place], [id number] GAP 11 Normal 5-15 [facility] Comment on above: Order Comment: DR. Monik BLANCO ORDERED CMPDR. TORRES ORDERED ALL LABS Performed By: #### L 3100.3425, L803.2200, L3400.0700, L3410.9992, L501.9985, L500.4050, L500.4100, L300.3900, L3890.6202, L503.6550, L3890.6006, L100.0100, L3200.1100, L3000.0375, L3100.5450, L800.1280, L501.6710, L503.6030 #### [facility] [address] [facility] [address] [place], [place], [phone] GFR/1.73 sq M.predicted among non-blacks MDRD (S/P/Bld) [Vol rate/Area] 100 mL/min/{1.73_m2} Normal >60 [facility] Comment on above: Order Comment: DR. Monik BLANCO ORDERED MARYLOU. BRIAN ORDERED ALL LABS Result Comment: mL/m in/1.73m2 CKD-EPI Creatinine Equation (2020) Performed By: #### L 3100.3425, L803.2200, L3400.0700, L3410.9992, L501.9985, L500.4050, L500.4100, L300.3900, L3890.6202, L503.6550, L3890.6006, L100.0100, L3200.1100, L3000.0375, L3100.5450, L800.1280, L501.6710, L503.6030 #### [facility] [address] [place], [place], [id number] (668) Globulin (S) [Mass/Vol] 2.2 g/dL Normal 2.2-4.2 [facility] Comment on above: Order Comment: DR. Monik BLANCO ORDERED CMPDR. TORRES ORDERED ALL LABS Performed By: #### L 3100.3425, L803.2200, L3400.0700, L3410.9992, L501.9985, L500.4050, L500.4100, L300.3900, L3890.6202, L503.6550, L3890.6006, L100.0100, L3200.1100, L3000.0375, L3100.5450, L800.1280, L501.6710, L503.6030 #### [facility] [address] [place], [address] (860) Glucose [Mass/Vol] 113 mg/dL High 70-99 [facility] Comment on above: Order Comment: DR. Monik BLANCO ORDERED CMPDR. TORRES ORDERED ALL LABS Performed By: #### L 3100.3425, L803.2200, L3400.0700, L3410.9992, L501.9985, L500.4050, L500.4100, L300.3900, L3890.6202, L503.6550, L3890.6006, L100.0100, L3200.1100, L3000.0375, L3100.5450, L800.1280, L501.6710, L503.6030 #### [facility] [address] [place], [place], [phone] (797) Potassium [Moles/Vol] 4.3 mmol/L Normal 3.3-5.1 [facility] Comment on above: Order Comment: DR. Monik BLANCO ORDERED CMPDR. TORRES ORDERED ALL LABS Performed By: #### L 3100.3425, L803.2200, L3400.0700, L3410.9992, L501.9985, L500.4050, L500.4100, L300.3900, L3890.6202, L503.6550, L3890.6006, L100.0100, L3200.1100, L3000.0375, L3100.5450, L800.1280, L501.6710, L503.6030 #### [facility] [address] [place], [place], [id number] Sodium [Moles/Vol] 141 mmol/L Normal 133-145 [facility] Comment on above: Order Comment: DR. Monik BLANCO ORDERED CMPDR. TORRES ORDERED ALL LABS Performed By: #### L 3100.3425, L803.2200, L3400.0700, L3410.9992, L501.9985, L500.4050, L500.4100, L300.3900, L3890.6202, L503.6550, L3890.6006, L100.0100, L3200.1100, L3000.0375, L3100.5450, L800.1280, L501.6710, L503.6030 #### [facility] [address] [place], [place], [id number] T PROT 6.8 g/dL Normal 5.9-8.4 [facility] Comment on above: Order Comment: DR. Monik BLANCO ORDERED CMPDR. TORRES ORDERED ALL LABS Performed By: #### L 3100.3425, L803.2200, L3400.0700, L3410.9992, L501.9985, L500.4050, L500.4100, L300.3900, L3890.6202, L503.6550, L3890.6006, L100.0100, L3200.1100, L3000.0375, L3100.5450, L800.1280, L501.6710, L503.6030 #### [facility] [address] [place], [place], [id number] Urea nitrogen [Mass/Vol] 13 mg/dL Normal 4-19 [facility] Comment on above: Order Comment: DR. Monik BLANCO ORDERED CMPDR. BRIAN ORDERED ALL LABS Performed By: #### L 3100.3425, L803.2200, L3400.0700, L3410.9992, L501.9985, L500.4050, L500.4100, L300.3900, L3890.6202, L503.6550, L3890.6006, L100.0100, L3200.1100, L3000.0375, L3100.5450, L800.1280, L501.6710, L503.6030 #### [facility] [address] [facility] [address] [place], [place], [id number] Glomerular filtration rate ( GFR) estimation/1.73 sq m using serum, plasma, or whole bOrdered By: Erma Quiros on 04-13-2025 GFR/1.73 sq M.predicted among non-blacks MDRD (S/P/Bld) [Vol rate/Area] 100 mL/min/{1.73_m2} >60 [facility] Comment on above: mL/min/1.73m2 CKD-EP I Creatinine Equation (2020) Laboratory - Chemistry and C hemistry - challengeOrdered By: Erma Quiros on 04-13-2025 AST [Catalytic activity/Vol] 43 U/L High <32 [facility] Magnesiumon 04-13-2025 Magnesium [Mass/Vol] 2.0 mg/dL Normal 1.5-2.2 [facility] Comment on above: Order Comment: DR. Monik BLANCO ORDERED MARYLOU. BRIAN ORDERED ALL LABS Performed By: #### L 3100.3425, L803.2200, L3400.0700, L3410.9992, L501.9985, L500.4050, L500.4100, L300.3900, L3890.6202, L503.6550, L3890.6006, L100.0100, L3200.1100, L3000.0375, L3100.5450, L800.1280, L501.6710, L503.6030 #### [facility] [place], [address] Magnesium measurement (mass/ volume)Ordered By: Erma Quiros on 04-13-2025 Magnesium (Unsp spec) [Mass/Vol] 2.0 mg/dL 1.5-2.2 [facility] Potassium measurement (mass/ volume)Ordered By: Renekitzmillermichelle Quiros on 04-13-2025 Potassium (Unsp spec) [Mass/Vol] 4.3 mmol/L 3.3-5.1 [facility] Serum creatinine measurement (mass/volume)Ordered By: Renekitzmillermichelle Quiros on 04-13-2025 Creatinine [Mass/Vol] 0.70 mg/dL 0.70-1.20 [facility] Serum globulin measurementOr dered By: Erma Quiros on 04-13-2025 Globulin (S) [Mass/Vol] 2.2 g/dL 2.2-4.2 [facility] Serum glucose measurement (m ass/volume)Ordered By: Erma Quiros on 04-13-2025 Glucose [Mass/Vol] 113 mg/dL High 70-99 [facility] Serum or plasma alanine ha otransferase (ALT) measurementOrdered By: Erma Quiros on 04-13-2025 ALT [Catalytic activity/Vol] 55 U/L High <35 [facility] Serum or plasma albumin adiel urement (mass/volume)Ordered By: Erma Quiros on 04-13-2025 Albumin [Mass/Vol] 4.6 g/dL 3.5-5.0 [facility] Serum or plasma albumin/glob ulin mass ratioOrdered By: Erma Quiros on 04-13-2025 Albumin/Globulin [Mass ratio] 2.1 {ratio} 0.9-2.4 [facility] Serum or plasma alkaline mateo sphatase measurementOrdered By: Erma Quiros on 04-13-2025 ALP [Catalytic activity/Vol] 51 U/L 35-104 [facility] Serum or plasma calcium adiel urement (mass/volume)Ordered By: Erma Quiros on 04-13-2025 Calcium [Mass/Vol] 9.9 mg/dL 7.6-11.0 [facility] Serum or plasma urea nitroge n measurement (mass/volume)Ordered By: Erma Pittmanjonahval on 04-13-2025 Urea nitrogen [Mass/Vol] 13 mg/dL 4-19 [facility] Sodium levelOrdered By: Alisalb vega Zainjonahval on 04-13-2025 Sodium [Moles/Vol] 141 mmol/L 133-145 [facility] TSH DL <= 0.005 mIU/L QnOrde red By: Erma Quiros on 04-13-2025 TSH Qn 1.620 uIU/mL 0.300-4.200 [facility] Thyroid Stim Hormone (TSH)on 04-13-2025 TSH 1.620 uIU/mL Normal 0.300-4.200 [facility] Comment on above: Order Comment: DR. Monik BLANCO ORDERED CMPDR. BRIAN ORDERED ALL LABS Performed By: #### L 3100.3425, L803.2200, L3400.0700, L3410.9992, L501.9985, L500.4050, L500.4100, L300.3900, L3890.6202, L503.6550, L3890.6006, L100.0100, L3200.1100, L3000.0375, L3100.5450, L800.1280, L501.6710, L503.6030 #### [facility] [address] [place], [address] Total proteinOrdered By: Lane arronmichelle Quiros on 04-13-2025 Protein [Mass/Vol] 6.8 g/dL 5.9-8.4 [facility] Absolute lymphocyte countOrd ered By: Alisalbevensmichelle Quiros on 03-25-2025 Lymphocytes Auto (Unsp spec) [#/Vol] 1.44 10*3/uL 0.83-4.51 [facility] Absolute neutrophil countOrd ered By: wagner Quiros on 03-25-2025 Neutrophils (Bld) [#/Vol] 2.5 10*3/uL 2.0-7.7 [facility] Anion gap in Serum or Plasma Ordered By: lbkitzmillermichelle Quiros on 03-25-2025 Anion gap [Moles/Vol] 11 mmol/L 5- [facility] Automated lymphocyte count a s percentage of total leukocytesOrdered By: wagner Quiros on 03-25-2025 Lymphocytes/100 WBC Auto (Unsp spec) 32.7 % - [facility] BUN/creatinine ratioOrdered By: [facility] Pitt[facility] on 03-25-2025 Urea nitrogen/Creatinine [Mass ratio] 14.6 mg/mg 10- [facility] Basophil percentageOrdered B y: [facility] on 03-25-2025 Basophils/100 WBC (Bld) 0.7 % 0- [facility] Bilirubin, totalOrdered By: wagner Quiros on 03-25-2025 Bilirubin [Mass/Vol] 0.51 mg/dL 0.00-1.30 [facility] CBC W/Diff, Automatedon 03-12 Absolute Lymph 1.44 X10 3/uL Normal 0.83-4.51 [facility] Comment on above: Performed By: #### L 3100.3425, L803.2200, L3400.0700, L3410.9992, L501.9985, L500.4050, L500.4100, L300.3900, L3890.6202, L503.6550, L3890.6006, L100.0100, L3200.1100, L3000.0375, L3100.5450, L800.1280, L501.6710, L503.6030 #### [facility] [address] [place], [place], [id number] Absolute Neut 2.5 X10 3/uL Normal 2.0-7.7 [facility] Comment on above: Performed By: #### L 3100.3425, L803.2200, L3400.0700, L3410.9992, L501.9985, L500.4050, L500.4100, L300.3900, L3890.6202, L503.6550, L3890.6006, L100.0100, L3200.1100, L3000.0375, L3100.5450, L800.1280, L501.6710, L503.6030 #### [facility] [address] [place], [place], [phone] ([phone] Basophils/100 WBC (Bld) 0.7 % Normal 0-1 [facility] Comment on above: Performed By: #### L 3100.3425, L803.2200, L3400.0700, L3410.9992, L501.9985, L500.4050, L500.4100, L300.3900, L3890.6202, L503.6550, L3890.6006, L100.0100, L3200.1100, L3000.0375, L3100.5450, L800.1280, L501.6710, L503.6030 #### [facility] [address] [place], [address] Eosinophils/100 WBC (Bld) 2.0 % Normal 0-5 [facility] Comment on above: Performed By: #### L 3100.3425, L803.2200, L3400.0700, L3410.9992, L501.9985, L500.4050, L500.4100, L300.3900, L3890.6202, L503.6550, L3890.6006, L100.0100, L3200.1100, L3000.0375, L3100.5450, L800.1280, L501.6710, L503.6030 #### [facility] [address] [place], [place], [id number] ([phone]) Erythrocyte distribution width (RBC) [Ratio] 11.9 % Normal 11.6-14.6 [facility] Comment on above: Performed By: #### L 3100.3425, L803.2200, L3400.0700, L3410.9992, L501.9985, L500.4050, L500.4100, L300.3900, L3890.6202, L503.6550, L3890.6006, L100.0100, L3200.1100, L3000.0375, L3100.5450, L800.1280, L501.6710, L503.6030 #### [facility] [address] [place], [address] Hematocrit (Bld) [Volume fraction] 37.7 % Normal 37-47 [facility] Comment on above: Performed By: #### L 3100.3425, L803.2200, L3400.0700, L3410.9992, L501.9985, L500.4050, L500.4100, L300.3900, L3890.6202, L503.6550, L3890.6006, L100.0100, L3200.1100, L3000.0375, L3100.5450, L800.1280, L501.6710, L503.6030 #### [facility] [address] [place], [address] Hemoglobin (Bld) [Mass/Vol] 13.2 g/dL Normal 12.0-15.0 [facility] Comment on above: Performed By: #### L 3100.3425, L803.2200, L3400.0700, L3410.9992, L501.9985, L500.4050, L500.4100, L300.3900, L3890.6202, L503.6550, L3890.6006, L100.0100, L3200.1100, L3000.0375, L3100.5450, L800.1280, L501.6710, L503.6030 #### [facility] [address] [place], [address] IG% 0.200 Normal 0.0-0.9 [facility] Comment on above: Result Comment: IG% - Immature Granulocytes (promyelocytes, myelocytes and metamyelocytes) > 1% indicates that a LEFT SHIFT is Present. Performed By: #### L 3100.3425, L803.2200, L3400.0700, L3410.9992, L501.9985, L500.4050, L500.4100, L300.3900, L3890.6202, L503.6550, L3890.6006, L100.0100, L3200.1100, L3000.0375, L3100.5450, L800.1280, L501.6710, L503.6030 #### [facility] [address] [place], [place], [id number] [phone] Lymphocytes/100 WBC (Bld) 32.7 % Normal 19-41 [facility] Comment on above: Performed By: #### L 3100.3425, L803.2200, L3400.0700, L3410.9992, L501.9985, L500.4050, L500.4100, L300.3900, L3890.6202, L503.6550, L3890.6006, L100.0100, L3200.1100, L3000.0375, L3100.5450, L800.1280, L501.6710, L503.6030 #### [facility] [address] [place], [place], [id number] MCH (RBC) [Entitic mass] 31.5 pg Normal 27.0-32.0 [facility] Comment on above: Performed By: #### L 3100.3425, L803.2200, L3400.0700, L3410.9992, L501.9985, L500.4050, L500.4100, L300.3900, L3890.6202, L503.6550, L3890.6006, L100.0100, L3200.1100, L3000.0375, L3100.5450, L800.1280, L501.6710, L503.6030 #### [facility] [address] [place], [address] MCHC (RBC) [Mass/Vol] 35.0 g/dL Normal 32-36 [facility] Comment on above: Performed By: #### L 3100.3425, L803.2200, L3400.0700, L3410.9992, L501.9985, L500.4050, L500.4100, L300.3900, L3890.6202, L503.6550, L3890.6006, L100.0100, L3200.1100, L3000.0375, L3100.5450, L800.1280, L501.6710, L503.6030 #### [facility] [address] [place], [address] MCV (RBC) [Entitic vol] 90.0 fL Normal 81-99 [facility] Comment on above: Performed By: #### L 3100.3425, L803.2200, L3400.0700, L3410.9992, L501.9985, L500.4050, L500.4100, L300.3900, L3890.6202, L503.6550, L3890.6006, L100.0100, L3200.1100, L3000.0375, L3100.5450, L800.1280, L501.6710, L503.6030 #### [facility] [address] [place], [address] Monocytes/100 WBC (Bld) 7.0 % Normal 0-10 [facility] Comment on above: Performed By: #### L 3100.3425, L803.2200, L3400.0700, L3410.9992, L501.9985, L500.4050, L500.4100, L300.3900, L3890.6202, L503.6550, L3890.6006, L100.0100, L3200.1100, L3000.0375, L3100.5450, L800.1280, L501.6710, L503.6030 #### [facility] [address] [facility] [place], [address] Neutrophils/100 WBC (Bld) 57.4 % Normal 47-70 [facility] Comment on above: Performed By: #### L 3100.3425, L803.2200, L3400.0700, L3410.9992, L501.9985, L500.4050, L500.4100, L300.3900, L3890.6202, L503.6550, L3890.6006, L100.0100, L3200.1100, L3000.0375, L3100.5450, L800.1280, L501.6710, L503.6030 #### [facility] [address] [facility] [place], [address] ([phone] Nucleated RBC (Bld) [#/Vol] 0 10*3/uL Normal 0-5 [facility] Comment on above: Performed By: #### L 3100.3425, L803.2200, L3400.0700, L3410.9992, L501.9985, L500.4050, L500.4100, L300.3900, L3890.6202, L503.6550, L3890.6006, L100.0100, L3200.1100, L3000.0375, L3100.5450, L800.1280, L501.6710, L503.6030 #### [facility] [address] [facility] [place], [address] Platelet mean volume (Bld) [Entitic vol] 11.1 fL Normal 6.2-12.0 [facility] Comment on above: Performed By: #### L 3100.3425, L803.2200, L3400.0700, L3410.9992, L501.9985, L500.4050, L500.4100, L300.3900, L3890.6202, L503.6550, L3890.6006, L100.0100, L3200.1100, L3000.0375, L3100.5450, L800.1280, L501.6710, L503.6030 #### [facility] [address] [place], [place], [id number] Platelets (Bld) [#/Vol] 194 10*3/uL Normal 150-450 [facility] Comment on above: Performed By: #### L 3100.3425, L803.2200, L3400.0700, L3410.9992, L501.9985, L500.4050, L500.4100, L300.3900, L3890.6202, L503.6550, L3890.6006, L100.0100, L3200.1100, L3000.0375, L3100.5450, L800.1280, L501.6710, L503.6030 #### [facility] [address] [place], [place], [id number] RBC (Bld) [#/Vol] 4.19 10*6/uL Low 4.2-5.4 [facility] Comment on above: Performed By: #### L 3100.3425, L803.2200, L3400.0700, L3410.9992, L501.9985, L500.4050, L500.4100, L300.3900, L3890.6202, L503.6550, L3890.6006, L100.0100, L3200.1100, L3000.0375, L3100.5450, L800.1280, L501.6710, L503.6030 #### [facility] [address] [place], [place], [id number] RDW SD 38.9 fl Normal 35.1-43.9 [facility] Comment on above: Performed By: #### L 3100.3425, L803.2200, L3400.0700, L3410.9992, L501.9985, L500.4050, L500.4100, L300.3900, L3890.6202, L503.6550, L3890.6006, L100.0100, L3200.1100, L3000.0375, L3100.5450, L800.1280, L501.6710, L503.6030 #### [facility] [address] [facility] [place], [address] WBC (Bld) [#/Vol] 4.4 10*3/uL Normal 4.4-11.0 [facility] Comment on above: Performed By: #### L 3100.3425, L803.2200, L3400.0700, L3410.9992, L501.9985, L500.4050, L500.4100, L300.3900, L3890.6202, L503.6550, L3890.6006, L100.0100, L3200.1100, L3000.0375, L3100.5450, L800.1280, L501.6710, L503.6030 #### [facility] [address] [facility] [place], [address] Calculated very low density lipoprotein (VLDL) cholesterol measurementOrdered By: Erma Quiros on 03-25-2025 Calculated very low density lipoprotein (VLDL) cholesterol measurement 20 mg/dL 5-40 [facility] Carbon dioxide, total [Moles /volume] in Central venous bloodOrdered By: Erma Quiros on 03-25-2025 CO2 [Moles/Vol] 24.7 mmol/L 21.0-32.0 [facility] Chloride assayOrdered By: Alisa Quiros on 03-25-2025 Chloride [Moles/Vol] 106 mmol/L 98-108 [facility] Comprehensive Metabolic Prof ilon 03-25-2025 Albumin [Mass/Vol] 4.4 g/dL Normal 3.5-5.0 [facility] Comment on above: Performed By: #### L 3100.3425, L803.2200, L3400.0700, L3410.9992, L501.9985, L500.4050, L500.4100, L300.3900, L3890.6202, L503.6550, L3890.6006, L100.0100, L3200.1100, L3000.0375, L3100.5450, L800.1280, L501.6710, L503.6030 #### [facility] [address] [place], [address] Albumin/Globulin [Mass ratio] 1.9 {ratio} Normal 0.9-2.4 [facility] Comment on above: Performed By: #### L 3100.3425, L803.2200, L3400.0700, L3410.9992, L501.9985, L500.4050, L500.4100, L300.3900, L3890.6202, L503.6550, L3890.6006, L100.0100, L3200.1100, L3000.0375, L3100.5450, L800.1280, L501.6710, L503.6030 #### [facility] [address] [place], [address] ALK PHOS 53 U/L Normal 35-104 [facility] Comment on above: Performed By: #### L 3100.3425, L803.2200, L3400.0700, L3410.9992, L501.9985, L500.4050, L500.4100, L300.3900, L3890.6202, L503.6550, L3890.6006, L100.0100, L3200.1100, L3000.0375, L3100.5450, L800.1280, L501.6710, L503.6030 #### [facility] [address] [place], [address] ALT [Catalytic activity/Vol] 52 U/L High <=34 [facility] Comment on above: Performed By: #### L 3100.3425, L803.2200, L3400.0700, L3410.9992, L501.9985, L500.4050, L500.4100, L300.3900, L3890.6202, L503.6550, L3890.6006, L100.0100, L3200.1100, L3000.0375, L3100.5450, L800.1280, L501.6710, L503.6030 #### [facility] [address] [facility] [place], [address] AST [Catalytic activity/Vol] 42 U/L High <=31 [facility] Comment on above: Performed By: #### L 3100.3425, L803.2200, L3400.0700, L3410.9992, L501.9985, L500.4050, L500.4100, L300.3900, L3890.6202, L503.6550, L3890.6006, L100.0100, L3200.1100, L3000.0375, L3100.5450, L800.1280, L501.6710, L503.6030 #### [facility] [address] [facility] [place], [address] Bilirubin [Mass/Vol] 0.51 mg/dL Normal 0.00-1.30 [facility] Comment on above: Performed By: #### L 3100.3425, L803.2200, L3400.0700, L3410.9992, L501.9985, L500.4050, L500.4100, L300.3900, L3890.6202, L503.6550, L3890.6006, L100.0100, L3200.1100, L3000.0375, L3100.5450, L800.1280, L501.6710, L503.6030 #### [facility] [address] [place], [address] BUN/CRE 14.6 RATIO Normal 10-20 [facility] Comment on above: Performed By: #### L 3100.3425, L803.2200, L3400.0700, L3410.9992, L501.9985, L500.4050, L500.4100, L300.3900, L3890.6202, L503.6550, L3890.6006, L100.0100, L3200.1100, L3000.0375, L3100.5450, L800.1280, L501.6710, L503.6030 #### [facility] [address] [place], [place], [phone] (286) Calcium [Mass/Vol] 9.7 mg/dL Normal 7.6-11.0 [facility] Comment on above: Performed By: #### L 3100.3425, L803.2200, L3400.0700, L3410.9992, L501.9985, L500.4050, L500.4100, L300.3900, L3890.6202, L503.6550, L3890.6006, L100.0100, L3200.1100, L3000.0375, L3100.5450, L800.1280, L501.6710, L503.6030 #### [facility] [address] [place], [address] Chloride [Moles/Vol] 106 mmol/L Normal 98-108 [facility] Comment on above: Performed By: #### L 3100.3425, L803.2200, L3400.0700, L3410.9992, L501.9985, L500.4050, L500.4100, L300.3900, L3890.6202, L503.6550, L3890.6006, L100.0100, L3200.1100, L3000.0375, L3100.5450, L800.1280, L501.6710, L503.6030 #### [facility] [address] [facility] [place], [address] CO2 [Moles/Vol] 24.7 mmol/L Normal 21.0-32.0 [facility] Comment on above: Performed By: #### L 3100.3425, L803.2200, L3400.0700, L3410.9992, L501.9985, L500.4050, L500.4100, L300.3900, L3890.6202, L503.6550, L3890.6006, L100.0100, L3200.1100, L3000.0375, L3100.5450, L800.1280, L501.6710, L503.6030 #### [facility] [address] [place] [place], [address] Creatinine [Mass/Vol] 0.67 mg/dL Low 0.70-1.20 [facility] Comment on above: Performed By: #### L 3100.3425, L803.2200, L3400.0700, L3410.9992, L501.9985, L500.4050, L500.4100, L300.3900, L3890.6202, L503.6550, L3890.6006, L100.0100, L3200.1100, L3000.0375, L3100.5450, L800.1280, L501.6710, L503.6030 #### [facility] [address] [place] [place], [address] GAP 11 Normal 5-15 [facility] Comment on above: Performed By: #### L 3100.3425, L803.2200, L3400.0700, L3410.9992, L501.9985, L500.4050, L500.4100, L300.3900, L3890.6202, L503.6550, L3890.6006, L100.0100, L3200.1100, L3000.0375, L3100.5450, L800.1280, L501.6710, L503.6030 #### [facility] [address] [facility] [address] [place], [place], [phone] (565) GFR/1.73 sq M.predicted among non-blacks MDRD (S/P/Bld) [Vol rate/Area] 101 mL/min/{1.73_m2} Normal >60 [facility] Comment on above: Result Comment: mL/m in/1.73m2 CKD-EPI Creatinine Equation (2020) Performed By: #### L 3100.3425, L803.2200, L3400.0700, L3410.9992, L501.9985, L500.4050, L500.4100, L300.3900, L3890.6202, L503.6550, L3890.6006, L100.0100, L3200.1100, L3000.0375, L3100.5450, L800.1280, L501.6710, L503.6030 #### [facility] [address] [facility] [address] [place], [place], [id number] (454) Globulin (S) [Mass/Vol] 2.3 g/dL Normal 2.2-4.2 [facility] Comment on above: Performed By: #### L 3100.3425, L803.2200, L3400.0700, L3410.9992, L501.9985, L500.4050, L500.4100, L300.3900, L3890.6202, L503.6550, L3890.6006, L100.0100, L3200.1100, L3000.0375, L3100.5450, L800.1280, L501.6710, L503.6030 #### [facility] [address] [facility] [address] [place], [place], [id number] Glucose [Mass/Vol] 114 mg/dL High 70-99 [facility] Comment on above: Performed By: #### L 3100.3425, L803.2200, L3400.0700, L3410.9992, L501.9985, L500.4050, L500.4100, L300.3900, L3890.6202, L503.6550, L3890.6006, L100.0100, L3200.1100, L3000.0375, L3100.5450, L800.1280, L501.6710, L503.6030 #### [facility] [address] [place], [place], [phone] (944) Potassium [Moles/Vol] 4.1 mmol/L Normal 3.3-5.1 [facility] Comment on above: Performed By: #### L 3100.3425, L803.2200, L3400.0700, L3410.9992, L501.9985, L500.4050, L500.4100, L300.3900, L3890.6202, L503.6550, L3890.6006, L100.0100, L3200.1100, L3000.0375, L3100.5450, L800.1280, L501.6710, L503.6030 #### [facility] [address] [place], [place], [phone] Sodium [Moles/Vol] 142 mmol/L Normal 133-145 [facility] Comment on above: Performed By: #### L 3100.3425, L803.2200, L3400.0700, L3410.9992, L501.9985, L500.4050, L500.4100, L300.3900, L3890.6202, L503.6550, L3890.6006, L100.0100, L3200.1100, L3000.0375, L3100.5450, L800.1280, L501.6710, L503.6030 #### [facility] [address] [facility] [place], [address] T PROT 6.7 g/dL Normal 5.9-8.4 [facility] Comment on above: Performed By: #### L 3100.3425, L803.2200, L3400.0700, L3410.9992, L501.9985, L500.4050, L500.4100, L300.3900, L3890.6202, L503.6550, L3890.6006, L100.0100, L3200.1100, L3000.0375, L3100.5450, L800.1280, L501.6710, L503.6030 #### [facility] [address] [place], [address] Urea nitrogen [Mass/Vol] 10 mg/dL Normal 4-19 [facility] Comment on above: Performed By: #### L 3100.3425, L803.2200, L3400.0700, L3410.9992, L501.9985, L500.4050, L500.4100, L300.3900, L3890.6202, L503.6550, L3890.6006, L100.0100, L3200.1100, L3000.0375, L3100.5450, L800.1280, L501.6710, L503.6030 #### [facility] [address] [place], [address] Eosinophil percentageOrdered By: Erma Quiros on 03-25-2025 Eosinophils/100 WBC (Bld) 2.0 % 0-5 [facility] Erythrocyte distribution wid th ratioOrdered By: Erma Quiros on 03-25-2025 Erythrocyte distribution width (RBC) [Ratio] 11.9 % 11.6-14.6 [facility] Erythrocyte distribution wid th standard deviationOrdered By: lbkitzmillermichelle Quiros on 03-25-2025 Erythrocyte distribution width (RBC) [Ratio] 38.9 fl 35.1-43.9 [facility] Glomerular filtration rate ( GFR) estimation/1.73 sq m using serum, plasma, or whole bOrdered By: Erma Quiros on 03-25-2025 GFR/1.73 sq M.predicted among non-blacks MDRD (S/P/Bld) [Vol rate/Area] 101 mL/min/{1.73_m2} >60 [facility] Comment on above: mL/min/1.73m2 CKD-EP I Creatinine Equation (2020) Hematocrit Auto (Bld) [Volum e fraction]Ordered By: Erma Quiros on 03-25-2025 Hematocrit (Bld) [Volume fraction] 37.7 % 37-47 [facility] Hemoglobin measurementOrdere d By: Erma Quiros on 03-25-2025 Hemoglobin (Bld) [Mass/Vol] 13.2 g/dL 12.0-15.0 [facility] Immature granulocytes/100 WB C Auto (Bld)Ordered By: Erma Quiros on 03-25-2025 Immature granulocytes/100 WBC (Bld) 0.200 % 0.0-0.9 [facility] Comment on above: IG% - Immature Granu locytes (promyelocytes, myelocytes and metamyelocytes) > 1% indicates that a LEFT SHIFT is Present. Internal Medicine Office Vis itoedwin 03-25-2025 Internal Medicine Office Visit [facility] [address] [place] [address] [place] [address] OFFICE VISIT Date of Service: 03/25/25 MR#: [id number] Acct: [id number] Name: LANCE ANGELES Rep #: [id number] : 1965 Provider: Dr. Erma rooney MD Age/Sex: 59/F Location: [facility] [place] Status: Signed Intake Vital Signs 06/04/24 08:31 [...] mg PO DAILY 04/17/20 03/25/25 H istory release,disintegrating tablet biotin 1 mg capsule 1 mg [...] you fallen in the past year?: No [facility] Medical History (Updated 03/25/25 @ 10:[address] Erma Quiros MD) Vertigo Muscle cramps Preventative health care Elevated liver enzymes Graves disease Surgical History S/P wisdom tooth extraction Family History Father Heart disease Mother No problems noted. 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 Also reports occasional/intermittent cramps, she states that she stays very [...] has been progressively worsening. Follows up with [facility]. Last colonoscopy was age at age 51 [...] habits, constipation, cramping, diarrhea, nausea/dyspepsia or vomiting Genitourinary-Female: No burning urination, painful urination, urinary inconti (more content not included)... Normal [facility] LDL calc ser/plasOrdered By: Erma Quiros on 03-25-2025 Cholesterol in LDL [Mass/Vol] 107 mg/dL [facility] Comment on above: Fenlpwwmqg=014-549 m g/dL & Higher Gkvj=674 mg/dL or greater Laboratory - Chemistry and C hemistry - challengeOrdered By: Erma Quiros on 03-25-2025 AST [Catalytic activity/Vol] 42 U/L High <32 [facility] Lipid Profileon 03-25-2025 CHOL:HDL 3.69 Normal [facility] Comment on above: Performed By: #### L 3100.3425, L803.2200, L3400.0700, L3410.9992, L501.9985, L500.4050, L500.4100, L300.3900, L3890.6202, L503.6550, L3890.6006, L100.0100, L3200.1100, L3000.0375, L3100.5450, L800.1280, L501.6710, L503.6030 #### [facility] [address] [place], [address] (518) Cholesterol [Mass/Vol] 174 mg/dL Normal <=200 [facility] Comment on above: Result Comment: Chol esterol level, Desirable <200 mg/dL Borderline high cholesterol 200-239 mg/dL High cholesterol >=240 mg/dL Recommendations of the NCEP Adult Treatment Panel for the following risk-cutoff thresholds for the [place] population. Performed By: #### L 3100.3425, L803.2200, L3400.0700, L3410.9992, L501.9985, L500.4050, L500.4100, L300.3900, L3890.6202, L503.6550, L3890.6006, L100.0100, L3200.1100, L3000.0375, L3100.5450, L800.1280, L501.6710, L503.6030 #### [facility] [address] [place], [address] (330) Cholesterol in HDL [Mass/Vol] 47 mg/dL Normal [facility] Comment on above: Result Comment: Jenelle onal Cholesterol Education Program (NCEP) guidelines: <40 mg/dL: Low HDL-cholesterol (major risk factor for CHD) >= 60 mg/dL: High HDL-cholesterol (negative risk factor for CHD) HDL-cholesterol is affected by a number of factors, e.g. smoking, exercise, hormones, sex and age. Performed By: #### L 3100.3425, L803.2200, L3400.0700, L3410.9992, L501.9985, L500.4050, L500.4100, L300.3900, L3890.6202, L503.6550, L3890.6006, L100.0100, L3200.1100, L3000.0375, L3100.5450, L800.1280, L501.6710, L503.6030 #### [facility] [address] [place], [address] (504) Cholesterol in LDL [Mass/Vol] 107 mg/dL Normal [facility] Comment on above: Result Comment: Bord seoare=084-728 mg/dL Higher Fywf=248 mg/dL or greater Performed By: #### L 3100.3425, L803.2200, L3400.0700, L3410.9992, L501.9985, L500.4050, L500.4100, L300.3900, L3890.6202, L503.6550, L3890.6006, L100.0100, L3200.1100, L3000.0375, L3100.5450, L800.1280, L501.6710, L503.6030 #### [facility] [address] [place], [address] (195) Cholesterol in VLDL [Mass/Vol] 20 mg/dL Normal 5-40 [facility] Comment on above: Performed By: #### L 3100.3425, L803.2200, L3400.0700, L3410.9992, L501.9985, L500.4050, L500.4100, L300.3900, L3890.6202, L503.6550, L3890.6006, L100.0100, L3200.1100, L3000.0375, L3100.5450, L800.1280, L501.6710, L503.6030 #### [facility] [address] [facility] [place], [address] Triglyceride [Mass/Vol] 100 mg/dL Normal [facility] Comment on above: Result Comment: The drugs N-Acetylcysteine and Metamizole may falsely depress this assay. Normal range: <150 mg/dL Borderline High: 150-199 mg/dL High: 200-499 mg/dL Very High: >500 mg/dL Performed By: #### L 3100.3425, L803.2200, L3400.0700, L3410.9992, L501.9985, L500.4050, L500.4100, L300.3900, L3890.6202, L503.6550, L3890.6006, L100.0100, L3200.1100, L3000.0375, L3100.5450, L800.1280, L501.6710, L503.6030 #### [facility] [address] [place], [place], [id number] MCV (mean corpuscular volume ) determinationOrdered By: Erma Quiros on 03-25-2025 MCV (RBC) [Entitic vol] 90.0 fL 81-99 [facility] Mean corpuscular hemoglobin (MCH) determinationOrdered By: Erma Quiros on 03-25-2025 MCH (RBC) [Entitic mass] 31.5 pg 27.0-32.0 [facility] Mean corpuscular hemoglobin concentration (MCHC) determinationOrdered By: Erma Quiros on 03-25-2025 MCHC (RBC) [Mass/Vol] 35.0 g/dL 32-36 [facility] Mean platelet volume determi nationOrdered By: Erma Quiros on 03-25-2025 Platelet mean volume (Bld) [Entitic vol] 11.1 fL 6.2-12.0 [facility] Monocyte percentageOrdered B y: Erma Quiros on 03-25-2025 Monocytes/100 WBC (Bld) 7.0 % 0-10 [facility] Neutrophil percentageOrdered By: Erma Quiros on 03-25-2025 Neutrophils/100 WBC (Bld) 57.4 % 47-70 [facility] Nucleated red blood cell per centageOrdered By: Erma Quiros on 03-25-2025 Nucleated RBC/100 WBC (Bld) [Ratio] 0 % 0-5 [facility] Platelet countOrdered By: Alisa Quiros on 03-25-2025 Platelets (Bld) [#/Vol] 194 10*3/uL 150-450 [facility] Potassium measurement (mass/ volume)Ordered By: Erma Quiros on 03-25-2025 Potassium (Unsp spec) [Mass/Vol] 4.1 mmol/L 3.3-5.1 [facility] RBC Auto (Bld) [#/Vol]Ordere d By: Erma Quiros on 03-25-2025 RBC (Bld) [#/Vol] 4.19 10*6/uL Low 4.2-5.4 [facility] Screening total cholesterol/ high density lipoprotein (HDL) cholesterol ratioOrdered By: Erma Quiros on 03-25-2025 Cholesterol.total/Cho lesterol in HDL [Mass ratio] 3.69 {ratio} [facility] Serum creatinine measurement (mass/volume)Ordered By: Erma Quiros on 03-25-2025 Creatinine [Mass/Vol] 0.67 mg/dL Low 0.70-1.20 [facility] Serum globulin measurementOr dered By: Erma Quiros on 03-25-2025 Globulin (S) [Mass/Vol] 2.3 g/dL 2.2-4.2 [facility] Serum glucose measurement (m ass/volume)Ordered By: Erma Quiros on 03-25-2025 Glucose [Mass/Vol] 114 mg/dL High 70-99 [facility] Serum or plasma alanine ha otransferase (ALT) measurementOrdered By: Alisawagner Quiros 03-25-2025 ALT [Catalytic activity/Vol] 52 U/L High <35 [facility] Serum or plasma albumin adiel urement (mass/volume)Ordered By: [facility] Pittmanjonahval 03-25-2025 Albumin [Mass/Vol] 4.4 g/dL 3.5-5.0 [facility] Serum or plasma albumin/glob ulin mass ratioOrdered By: [facility] Zainval 03-25-2025 Albumin/Globulin [Mass ratio] 1.9 {ratio} 0.9-2.4 [facility] Serum or plasma alkaline mateo sphatase measurementOrdered By: [facility] Pittmanval 03-25-2025 ALP [Catalytic activity/Vol] 53 U/L 35-104 [facility] Serum or plasma calcium adiel urement (mass/volume)Ordered By: [facility] Pittmanval 03-25-2025 Calcium [Mass/Vol] 9.7 mg/dL 7.6-11.0 [facility] Serum or plasma cholesterol in HDL measurement (mass/volume)Ordered By: lbkitzmillermichelle Pittmanval 03-25-2025 Cholesterol in HDL [Mass/Vol] 47 mg/dL >40 [facility] Comment on above: National Cholesterol Education Program (NCEP) guidelines:<40 mg/dL: Low HDL-cholesterol (major risk factor for CHD)>= 60 mg/dL: High HDL-cholesterol (negative risk factor for CHD)HDL-cholesterol is affected by a number of factors, e.g. smoking, exercise, hormones, sex and age. Serum or plasma cholesterol measurement (mass/volume)Ordered By: [facility] Pittmanval 03-25-2025 Cholesterol [Mass/Vol] 174 mg/dL <201 [facility] Comment on above: Cholesterol level, D esirable <200 mg/dLBorderline high cholesterol 200-239 mg/dLHigh cholesterol >=240 mg/dLRecommendations of the NCEP Adult Treatment Panel for the following risk-cutoff thresholds for the [place] population. Serum or plasma urea nitroge n measurement (mass/volume)Ordered By: Erma Quiros on 03-25-2025 Urea nitrogen [Mass/Vol] 10 mg/dL 4-19 [facility] Sodium levelOrdered By: Rene Quiros on 03-25-2025 Sodium [Moles/Vol] 142 mmol/L 133-145 [facility] Total proteinOrdered By: Lane Quiros on 03-25-2025 Protein [Mass/Vol] 6.7 g/dL 5.9-8.4 [facility] Triglycerides measurementOrd ered By: Erma Quiros on 03-25-2025 Triglyceride [Mass/Vol] 100 mg/dL <199 [facility] Comment on above: The drugs N-Acetylcy steine and Metamizole may falsely depress this assay. Normal range: <150 mg/dLBorderline High: 150-199 mg/dLHigh: 200-499 mg/dLVery High: >500 mg/dL White blood cell (WBC) count Ordered By: Erma Quiros on 03-25-2025 WBC (Bld) [#/Vol] 4.4 10*3/uL 4.4-11.0 [facility] Comprehensive Metabolic Prof ilon 10-06-2024 Albumin [Mass/Vol] 3.8 g/dL Normal 3.2-5.0 [facility] Comment on above: Performed By: #### L 3100.3425, L803.2200, L3400.0700, L3410.9992, L501.9985, L500.4050, L500.4100, L300.3900, L3890.6202, L503.6550, L3890.6006, L100.0100, L3200.1100, L3000.0375, L3100.5450, L800.1280, L501.6710, L503.6030 #### [facility] [address] [place], [place], [id number] Albumin/Globulin [Mass ratio] 1.4 {ratio} Normal 0.9-2.4 [facility] Comment on above: Performed By: #### L 3100.3425, L803.2200, L3400.0700, L3410.9992, L501.9985, L500.4050, L500.4100, L300.3900, L3890.6202, L503.6550, L3890.6006, L100.0100, L3200.1100, L3000.0375, L3100.5450, L800.1280, L501.6710, L503.6030 #### [facility] [address] [place], [address] ALK P 53 U/L Normal 45-117 [facility] Comment on above: Performed By: #### L 3100.3425, L803.2200, L3400.0700, L3410.9992, L501.9985, L500.4050, L500.4100, L300.3900, L3890.6202, L503.6550, L3890.6006, L100.0100, L3200.1100, L3000.0375, L3100.5450, L800.1280, L501.6710, L503.6030 #### [facility] [address] [place], [address] ALT [Catalytic activity/Vol] 51 U/L Normal 13-56 [facility] Comment on above: Performed By: #### L 3100.3425, L803.2200, L3400.0700, L3410.9992, L501.9985, L500.4050, L500.4100, L300.3900, L3890.6202, L503.6550, L3890.6006, L100.0100, L3200.1100, L3000.0375, L3100.5450, L800.1280, L501.6710, L503.6030 #### [facility] [address] [place], [address] AST [Catalytic activity/Vol] 32 U/L Normal 15-37 [facility] Comment on above: Performed By: #### L 3100.3425, L803.2200, L3400.0700, L3410.9992, L501.9985, L500.4050, L500.4100, L300.3900, L3890.6202, L503.6550, L3890.6006, L100.0100, L3200.1100, L3000.0375, L3100.5450, L800.1280, L501.6710, L503.6030 #### [facility] [address] [place], [address] Bilirubin [Mass/Vol] 0.40 mg/dL Normal 0.20-1.00 [facility] Comment on above: Result Comment: For patients on eltrombopag therapy, use of Dimension [place] TBIL is not recommended. Performed By: #### L 3100.3425, L803.2200, L3400.0700, L3410.9992, L501.9985, L500.4050, L500.4100, L300.3900, L3890.6202, L503.6550, L3890.6006, L100.0100, L3200.1100, L3000.0375, L3100.5450, L800.1280, L501.6710, L503.6030 #### [facility] [address] [place], [address] BUN/CRE 15.4 RATIO Normal 10-20 [facility] Comment on above: Performed By: #### L 3100.3425, L803.2200, L3400.0700, L3410.9992, L501.9985, L500.4050, L500.4100, L300.3900, L3890.6202, L503.6550, L3890.6006, L100.0100, L3200.1100, L3000.0375, L3100.5450, L800.1280, L501.6710, L503.6030 #### [facility] [address] [facility] [address] [place], [place], [id number] CA,Total 9.2 mg/dL Normal 8.5-10.1 [facility] Comment on above: Performed By: #### L 3100.3425, L803.2200, L3400.0700, L3410.9992, L501.9985, L500.4050, L500.4100, L300.3900, L3890.6202, L503.6550, L3890.6006, L100.0100, L3200.1100, L3000.0375, L3100.5450, L800.1280, L501.6710, L503.6030 #### [facility] [address] [place], [address] Chloride [Moles/Vol] 110 mmol/L High 98-107 [facility] Comment on above: Performed By: #### L 3100.3425, L803.2200, L3400.0700, L3410.9992, L501.9985, L500.4050, L500.4100, L300.3900, L3890.6202, L503.6550, L3890.6006, L100.0100, L3200.1100, L3000.0375, L3100.5450, L800.1280, L501.6710, L503.6030 #### [facility] [address] [place], [address] CO2 [Moles/Vol] 26.0 mmol/L Normal 21.0-32.0 [facility] Comment on above: Performed By: #### L 3100.3425, L803.2200, L3400.0700, L3410.9992, L501.9985, L500.4050, L500.4100, L300.3900, L3890.6202, L503.6550, L3890.6006, L100.0100, L3200.1100, L3000.0375, L3100.5450, L800.1280, L501.6710, L503.6030 #### [facility] [address] [place], [place], [id number] Creatinine [Mass/Vol] 0.71 mg/dL Normal 0.55-1.02 [facility] Comment on above: Result Comment: The validity of the calculated GFR GFRAA in patients over 70 years has not been determined. Clinical correlation is essential. Performed By: #### L 3100.3425, L803.2200, L3400.0700, L3410.9992, L501.9985, L500.4050, L500.4100, L300.3900, L3890.6202, L503.6550, L3890.6006, L100.0100, L3200.1100, L3000.0375, L3100.5450, L800.1280, L501.6710, L503.6030 #### [facility] [address] [place], [address] EST GFR - AA 108 mL/min Normal >60 [facility] Comment on above: Result Comment: Afri can [place] GFR Calc Performed By: #### L 3100.3425, L803.2200, L3400.0700, L3410.9992, L501.9985, L500.4050, L500.4100, L300.3900, L3890.6202, L503.6550, L3890.6006, L100.0100, L3200.1100, L3000.0375, L3100.5450, L800.1280, L501.6710, L503.6030 #### [facility] [address] [place], [place], [id number] GAP 5 Normal 5-15 [facility] Comment on above: Performed By: #### L 3100.3425, L803.2200, L3400.0700, L3410.9992, L501.9985, L500.4050, L500.4100, L300.3900, L3890.6202, L503.6550, L3890.6006, L100.0100, L3200.1100, L3000.0375, L3100.5450, L800.1280, L501.6710, L503.6030 #### [facility] [address] [facility] [place], [address] GFR/1.73 sq M.predicted among non-blacks MDRD (S/P/Bld) [Vol rate/Area] 89 mL/min/{1.73_m2} Normal >60 [facility] Comment on above: Result Comment: Non- GFR Calc Performed By: #### L 3100.3425, L803.2200, L3400.0700, L3410.9992, L501.9985, L500.4050, L500.4100, L300.3900, L3890.6202, L503.6550, L3890.6006, L100.0100, L3200.1100, L3000.0375, L3100.5450, L800.1280, L501.6710, L503.6030 #### [facility] [address] [place], [address] (291) Globulin (S) [Mass/Vol] 2.8 g/dL Normal 2.2-4.2 [facility] Comment on above: Performed By: #### L 3100.3425, L803.2200, L3400.0700, L3410.9992, L501.9985, L500.4050, L500.4100, L300.3900, L3890.6202, L503.6550, L3890.6006, L100.0100, L3200.1100, L3000.0375, L3100.5450, L800.1280, L501.6710, L503.6030 #### [facility] [address] [facility] [place], [address] Glucose [Mass/Vol] 110 mg/dL High 74-106 [facility] Comment on above: Result Comment: Fast ing Glucose result from 100 to 125 mg/dL suggests IMPAIRED HOMEOSTASIS per A.D.A. criteria. Performed By: #### L 3100.3425, L803.2200, L3400.0700, L3410.9992, L501.9985, L500.4050, L500.4100, L300.3900, L3890.6202, L503.6550, L3890.6006, L100.0100, L3200.1100, L3000.0375, L3100.5450, L800.1280, L501.6710, L503.6030 #### [facility] [address] [place], [place], [id number] (108) Potassium [Moles/Vol] 4.2 mmol/L Normal 3.5-5.1 [facility] Comment on above: Performed By: #### L 3100.3425, L803.2200, L3400.0700, L3410.9992, L501.9985, L500.4050, L500.4100, L300.3900, L3890.6202, L503.6550, L3890.6006, L100.0100, L3200.1100, L3000.0375, L3100.5450, L800.1280, L501.6710, L503.6030 #### [facility] [address] [place], [place], [id number] (185) Sodium [Moles/Vol] 142 mmol/L Normal 136-145 [facility] Comment on above: Performed By: #### L 3100.3425, L803.2200, L3400.0700, L3410.9992, L501.9985, L500.4050, L500.4100, L300.3900, L3890.6202, L503.6550, L3890.6006, L100.0100, L3200.1100, L3000.0375, L3100.5450, L800.1280, L501.6710, L503.6030 #### [facility] [address] [place], [place], [id number] T PROT 6.6 g/dL Normal 6.4-8.2 [facility] Comment on above: Performed By: #### L 3100.3425, L803.2200, L3400.0700, L3410.9992, L501.9985, L500.4050, L500.4100, L300.3900, L3890.6202, L503.6550, L3890.6006, L100.0100, L3200.1100, L3000.0375, L3100.5450, L800.1280, L501.6710, L503.6030 #### [facility] [address] [place], [address] Urea nitrogen [Mass/Vol] 11 mg/dL Normal 7-18 [facility] Comment on above: Performed By: #### L 3100.3425, L803.2200, L3400.0700, L3410.9992, L501.9985, L500.4050, L500.4100, L300.3900, L3890.6202, L503.6550, L3890.6006, L100.0100, L3200.1100, L3000.0375, L3100.5450, L800.1280, L501.6710, L503.6030 #### [facility] [address] [place], [place], [id number] PTHINon 11-25-2024 PTH 25.8 pg/mL Normal 18.4-80.1 [facility] Comment on above: Performed By: #### L 3100.3425, L803.2200, L3400.0700, L3410.9992, L501.9985, L500.4050, L500.4100, L300.3900, L3890.6202, L503.6550, L3890.6006, L100.0100, L3200.1100, L3000.0375, L3100.5450, L800.1280, L501.6710, L503.6030 #### [facility] [address] [place], [place], [id number] Thyroid Stim Hormone (TSH)on 10-06-2024 TSH 2.350 uIU/mL Normal 0.358-3.740 [facility] Comment on above: Performed By: #### L 3100.3425, L803.2200, L3400.0700, L3410.9992, L501.9985, L500.4050, L500.4100, L300.3900, L3890.6202, L503.6550, L3890.6006, L100.0100, L3200.1100, L3000.0375, L3100.5450, L800.1280, L501.6710, L503.6030 #### [facility] [address] [facility] [place], [address] Vitamin D,25 Hydroxyon 10-06 Vitamin D 25-OH 81.1 ng/mL Normal [facility] Comment on above: Result Comment: [place] min D 25(OH) Status Range Deficiency <20 ng/mL (50nmol/L) Insufficiency 20 - 30 ng/mL (50 - 75 nmol/L) Sufficiency 30 - 100 ng/mL (75 - 250 nmol/L) Toxicity >100 ng/mL (>250 nmol/L) Performed By: #### L 3100.3425, L803.2200, L3400.0700, L3410.9992, L501.9985, L500.4050, L500.4100, L300.3900, L3890.6202, L503.6550, L3890.6006, L100.0100, L3200.1100, L3000.0375, L3100.5450, L800.1280, L501.6710, L503.6030 #### [facility] [address] [place], [place], [id number] Absolute lymphocyte countOrd ered By: Erma Quiros on 11-07-2023 Lymphocytes Auto (Unsp spec) [#/Vol] 1.73 10*3/uL 0.83-4.51 [facility] Basophil percentageOrdered B y: Erma Quiros on 11-07-2023 Basophils/100 WBC (Bld) 1.1 % 0-1 [facility] Eosinophils/100 WBC (Bld) 1.4 % 0-5 [facility] Neutrophils (Bld) [#/Vol] 3.4 10*3/uL 2.0-7.7 [facility] Neutrophils/100 WBC (Bld) 59.0 % 47-70 [facility] WBC (Bld) [#/Vol] 5.7 10*3/uL 4.4-11.0 [facility] Blood erythrocytes count (nu mber/volume)Ordered By: Erma Quiros on 11-07-2023 RBC (Bld) [#/Vol] 4.31 10*6/uL 4.2-5.4 [facility] Blood hemoglobin measurement (mass/volume)Ordered By: Erma Quiros on 11-07-2023 Hemoglobin (Bld) [Mass/Vol] 13.2 g/dL 12.0-15.0 [facility] Blood lymphocytes/100 leukoc ytesOrdered By: Erma Quiros on 11-07-2023 Lymphocytes/100 WBC (Bld) 30.5 % 19-41 [facility] Blood monocytes/100 leukocyt esOrdered By: Niccimichelle Chula on 11-07-2023 Monocytes/100 WBC (Bld) 7.6 % 0-10 [facility] Blood platelet mean volumeOr dered By: Erma Quiros on 11-07-2023 Platelet mean volume (Bld) [Entitic vol] 10.6 fL 6.2-12.0 [facility] Determination of erythrocyte mean corpuscular volume (MCV)Ordered By: Alisalbevensmichelle Pittmanjonahval on 11-07-2023 MCV (RBC) [Entitic vol] 91.2 fL 81-99 [facility] Hematocrit Auto (Bld) [Volum e fraction]Ordered By: Alisalbevensmichelle Pittmanjonahval on 12-27-2023 Hematocrit (Bld) [Volume fraction] 39.3 % 37-47 [facility] Laboratory - Hematology and Cell countsOrdered By: Erma Quiros on 11-07-2023 Erythrocyte distribution width (RBC) [Entitic vol] 40.2 fL 35.1-43.9 [facility] Erythrocyte distribution width (RBC) [Ratio] 12.0 % 11.6-14.6 [facility] Immature granulocytes/100 WBC (Bld) 0.400 % 0.0-0.9 [facility] Comment on above: IG% - Immature Granu locytes (promyelocytes, myelocytes and metamyelocytes) > 1% indicates that a LEFT SHIFT is Present. MCH (RBC) [Entitic mass] 30.6 pg 27.0-32.0 [facility] Nucleated RBC/100 WBC (Bld) [Ratio] 0 % 0-5 [facility] MCHC Auto (RBC) [Mass/Vol]Or dered By: Erma Quiros on 11-07-2023 MCHC (RBC) [Mass/Vol] 33.6 g/dL 32-36 [facility] Platelets bldOrdered By: Lane Quiros on 11-07-2023 Platelets (Bld) [#/Vol] 222 10*3/uL 150-450 [facility] Basophil percentageOrdered B y: Bobby Amosjuliajosee on 10-15-2023 Bilirubin [Mass/Vol] 0.50 mg/dL 0.20-1.00 [facility] Comment on above: For patients on eltr ombopag therapy, use of Dimension [place] TBIL is not recommended. Chloride [Moles/Vol] 110 mmol/L 98-107 [facility] Cholesterol [Mass/Vol] 147 mg/dL <200 [facility] Comment on above: <200 mg/dL Desirable 200-240 mg/dL Borderline >240 mg/dL High Risk Glucose [Mass/Vol] 109 mg/dL 74-106 [facility] Comment on above: Fasting Glucose resu lt from 100 to 125 mg/dL suggests IMPAIRED HOMEOSTASIS per A.D.A. criteria. Potassium [Moles/Vol] 4.0 mmol/L 3.5-5.1 [facility] Protein [Mass/Vol] 6.5 g/dL 6.4-8.2 [facility] Sodium [Moles/Vol] 143 mmol/L 136-145 [facility] Triglyceride [Mass/Vol] 126 mg/dL <199 [facility] Comment on above: The drugs N-Acetylcy steine and Metamizole may falsely depress this assay.Serum Triglycerides Reference Interval Normal <150 mg/dL Borderline high 150 - 199 mg/dL High 200 - 499 mg/dL Very High > or = 500 mg/dL Laboratory - Chemistry and C hemistry - challengeOrdered By: Bobby Torres on 10-15-2023 ALP [Catalytic activity/Vol] 56 U/L 45-117 [facility] ALT [Catalytic activity/Vol] 47 U/L 13-56 [facility] CO2 [Moles/Vol] 27.0 mmol/L 21.0-32.0 [facility] Globulin (S) [Mass/Vol] 2.8 g/dL 2.2-4.2 [facility] Magnesium [Mass/Vol] 2.2 mg/dL 1.6-2.6 [facility] Urea nitrogen/Creatinine [Mass ratio] 9.1 mg/mg 10-20 [facility] No Panel InformationOrdered By: Bobby Torres on 10-15-2023 Estimated GFR (MDRD) Amer 119 mL/min >60 [facility] Comment on above: GFR Calc Estimated GFR (MDRD) Non-Af Amer 99 mL/min >60 [facility] Comment on above: Non- GFR Calc Thyroid Stimulating Hormone (TSH) 0.25 uIU/mL 0.358-3.74 [facility] Vitamin D 25-Hydroxy 82.8 ng/mL [facility] Comment on above: Vitamin D 25(OH) Sta tus Range Deficiency <20 ng/mL (50nmol/L) Insufficiency 20 - 30 ng/mL (50 - 75 nmol/L) Sufficiency 30 - 100 ng/mL (75 - 250 nmol/L) Toxicity >100 ng/mL (>250 nmol/L) Serum or plasma albumin adiel urement (mass/volume)Ordered By: Bobby Torres on 10-15-2023 Albumin [Mass/Vol] 3.7 g/dL 3.2-5.0 [facility] Serum or plasma albumin/glob ulin mass ratioOrdered By: Bobby Torres on 10-15-2023 Albumin/Globulin [Mass ratio] 1.3 {ratio} 0.9-2.4 [facility] Serum or plasma calcium adiel urement (mass/volume)Ordered By: Bobby Torres on 10-15-2023 Calcium [Mass/Vol] 9.1 mg/dL 8.5-10.1 [facility] Serum or plasma cholesterol in HDL measurement (mass/volume)Ordered By: Bobby Torres on 10-15-2023 Cholesterol in HDL [Mass/Vol] 52 mg/dL >40 [facility] Comment on above: The drugs N-Acetylcy steine and Metamizole may falsely depress this assay. Reference Range HDL <40 mg/dL Low HDL Cholesterol HDL >or= 60 mg/dL High HDL Cholesterol Serum or plasma cholesterol in VLDL measurement (mass/volume)Ordered By: Bobby Torres on 10-15-2023 Cholesterol in VLDL [Mass/Vol] 25 mg/dL 5-40 [facility] Serum or plasma creatinine m easurement (mass/volume)Ordered By: Bobby Torres on 10-15-2023 Creatinine [Mass/Vol] 0.66 mg/dL 0.55-1.02 [facility] Comment on above: The validity of the calculated GFR & GFRAA in patients over 70 years has not been determined. Clinical correlation is essential. Serum or plasma low density lipoprotein (LDL) cholesterol measurement (mass/volume)Ordered By: Bobby Torres on 10-15-2023 Cholesterol in LDL [Mass/Vol] 70 mg/dL 0-130 [facility] Serum or plasma urea nitroge n measurement (mass/volume)Ordered By: Bobby Torres on 10-15-2023 Urea nitrogen [Mass/Vol] 6 mg/dL 7-18 [facility] Thin prep Papanicolaou smear with manual screeningOrdered By: Bobby Torres on 10-15-2023 Thin prep Papanicolaou smear with manual screening 26 U/L 15-37 [facility] Thin prep Papanicolaou smear with manual screening 6 5-15 [facility] Cervical or vagninal specime n microscopic examination by cytology stain (reported asOrdered By: Maria Del Carmen Herndon on 09-13-2023 Cytology report Cyto stain Doc (Cvx/Vag) Comment . [facility] Comment on above: The Pap smear is [...] Maria Del Carmen Herndon on 09-13-2023 HPV 16+18+31+33+35+39+45+ 51+52+56+58+59+66+68 DNA Probe+sig amp Ql (Cvx) Negative Negative [facility] Comment on above: This nucleic acid am plification test detects fourteen high- risk HPV types (16,18,31,33,35,39,45,51,52,56,58,59,66,68)without differentiation. Laboratory - CytologyOrdered By: Maria Del Carmen Herndon on 09-13-2023 [employer] Machine Operator Cyto stain Nom (Cvx/Vag) [ID] Comment . [facility] Comment on above: Shelby Evans, [employer] hnologist (ASCP) Laboratory - Miscellaneous t estsOrdered By: Maria Del Carmen Herndon on 09-13-2023 Service comment (Unsp spec) [Interp] Comment . [facility] Comment on above: This liquid based Th inPrep(R) pap test was screened withthe use of an image guided system. Service comment (Unsp spec) [Interp] . . [facility] Liquid-based cerv Pap + CT/G C by MARIIA w reflex to high-risk HPV for ASCUSOrdered By: Maria Del Carmen Herndon on 09-13-2023 Cytology report Cyto stain.thin prep Doc (Cvx/Vag) Comment . [facility] Comment on above: Criteria not met, HP V Genotype not performed.Performed at: - [address] [id number] Director: Zully Osborn MD, Phone: [phone] at: =[facility] [address] [id number] Director: Zully Osborn MD, Phone: [phone] No Panel InformationOrdered By: Maria Del Carmen Herndon on 09-13-2023 Pap Smear QC Review Comment . [facility] Comment on above: Janes Monk ytotechnologist ([facility]) Pathology report final diagnosis Narrative Comment . [facility] Comment on above: NEGATIVE FOR INTRAEP ITHELIAL LESION OR MALIGNANCY.THIS SPECIMEN WAS RESCREENED PART OF OUR PROPERTY SUPERVISOR PROGRAM. Basophil percentageOrdered B y: Bobby Torres on 02-23-2023 Bilirubin [Mass/Vol] 0.30 mg/dL 0.20-1.00 [facility] Comment on above: For patients on eltr ombopag therapy, use of Dimension [place] TBIL is not recommended. Chloride [Moles/Vol] 110 mmol/L 98-107 [facility] Glucose [Mass/Vol] 127 mg/dL 74-106 [facility] Comment on above: Fasting Glucose resu lt greater than or equal to 126 mg/dL suggests DIABETES MELLITUS per A.D.A. criteria. Potassium [Moles/Vol] 4.3 mmol/L 3.5-5.1 [facility] Protein [Mass/Vol] 6.8 g/dL 6.4-8.2 [facility] Sodium [Moles/Vol] 141 mmol/L 136-145 [facility] Laboratory - Chemistry and C hemistry - challengeOrdered By: Bobby Torres on 02-23-2023 ALP [Catalytic activity/Vol] 61 U/L 45-117 [facility] ALT [Catalytic activity/Vol] 46 U/L 13-56 [facility] CO2 [Moles/Vol] 27.0 mmol/L 21.0-32.0 [facility] Globulin (S) [Mass/Vol] 3.0 g/dL 2.2-4.2 [facility] Urea nitrogen/Creatinine [Mass ratio] 13.5 mg/mg 10-20 [facility] No Panel InformationOrdered By: Bobby Torres on 02-23-2023 Estimated GFR (MDRD) Amer 93 mL/min >60 [facility] Comment on above: GFR Calc Estimated GFR (MDRD) Non-Af Amer 77 mL/min >60 [facility] Comment on above: Non- GFR Calc Thyroid Stimulating Hormone (TSH) 1.32 uIU/mL 0.358-3.74 [facility] Serum or plasma albumin adiel urement (mass/volume)Ordered By: Bobby Torres on 02-23-2023 Albumin [Mass/Vol] 3.8 g/dL 3.2-5.0 [facility] Serum or plasma albumin/glob ulin mass ratioOrdered By: Bobby Torres on 02-23-2023 Albumin/Globulin [Mass ratio] 1.3 {ratio} 0.9-2.4 [facility] Serum or plasma calcium adiel urement (mass/volume)Ordered By: Bobby Torres on 02-23-2023 Calcium [Mass/Vol] 9.1 mg/dL 8.5-10.1 [facility] Serum or plasma creatinine m easurement (mass/volume)Ordered By: Bobbykym Torres on 02-23-2023 Creatinine [Mass/Vol] 0.81 mg/dL 0.55-1.02 [facility] Comment on above: The validity of the calculated GFR & GFRAA in patients over 70 years has not been determined. Clinical correlation is essential. Serum or plasma urea nitroge n measurement (mass/volume)Ordered By: Bobby Torres on 02-23-2023 Urea nitrogen [Mass/Vol] 11 mg/dL 7-18 [facility] Thin prep Papanicolaou smear with manual screeningOrdered By: Bobbykym Torres on 02-23-2023 Thin prep Papanicolaou smear with manual screening 23 U/L 15-37 [facility] Thin prep Papanicolaou smear with manual screening 4 5-15 [facility] Basophil percentageon 2021 Bilirubin [Mass/Vol] 0.30 mg/dL 0.20-1.00 [facility] Work Phone: Comment on above: For patients on eltr ombopag therapy, use of Dimension [place] TBIL is not recommended. Chloride [Moles/Vol] 107 mmol/L 98-107 [facility] Work Phone: Cholesterol [Mass/Vol] 151 mg/dL <200 [facility] Work Phone: Comment on above: <200 mg/dL Desirable 200-240 mg/dL Borderline >240 mg/dL High Risk Glucose [Mass/Vol] 111 mg/dL 74-106 [facility] Work Phone: Comment on above: Fasting Glucose resu lt from 100 to 125 mg/dL suggests IMPAIRED HOMEOSTASIS per A.D.A. criteria. Potassium [Moles/Vol] 3.6 mmol/L 3.5-5.1 [facility] Work Phone: Protein [Mass/Vol] 6.9 g/dL 6.4-8.2 [facility] Work Phone: Sodium [Moles/Vol] 142 mmol/L 136-145 [facility] Work Phone: Triglyceride [Mass/Vol] 61 mg/dL <199 [facility] Work Phone: Comment on above: The drugs N-Acetylcy steine and Metamizole may falsely depress this assay.Serum Triglycerides Reference Interval Normal <150 mg/dL Borderline high 150 - 199 mg/dL High 200 - 499 mg/dL Very High > or = 500 mg/dL Laboratory - Chemistry and C hemistry - challengeon 07-25-2022 ALP [Catalytic activity/Vol] 57 U/L 45-117 [facility] Work Phone: ALT [Catalytic activity/Vol] 40 U/L 13-56 [facility] Work Phone: CO2 [Moles/Vol] 27.0 mmol/L 21.0-32.0 [facility] Work Phone: Free T4 [Mass/Vol] 1.19 ng/dL 0.76-1.46 [facility] Work Phone: Globulin (S) [Mass/Vol] 3.2 g/dL 2.2-4.2 [facility] Work Phone: Urea nitrogen/Creatinine [Mass ratio] 14.6 mg/mg 10-20 [facility] Work Phone: No Panel Informationon 07-25 Estimated GFR (MDRD) Amer 114 mL/min >60 [facility] Work Phone: Comment on above: GFR Calc Estimated GFR (MDRD) Non-Af Amer 95 mL/min >60 [facility] Work Phone: Comment on above: Non- GFR Calc Free Triiodothyronine (T3) pg/dL 3.2 pg/mL 2.18-3.98 [facility] Work Phone: Thyroid Stimulating Hormone (TSH) 0.46 uIU/mL 0.358-3.74 [facility] Work Phone: Serum or plasma albumin adiel urement (mass/volume)on 07-25-2022 Albumin [Mass/Vol] 3.7 g/dL 3.2-5.0 [facility] Work Phone: Serum or plasma albumin/glob ulin mass ratioon 07-25-2022 Albumin/Globulin [Mass ratio] 1.2 {ratio} 0.9-2.4 [facility] Work Phone: Serum or plasma calcium adiel urement (mass/volume)on 07-25-2022 Calcium [Mass/Vol] 9.2 mg/dL 8.5-10.1 [facility] Work Phone: Serum or plasma cholesterol in HDL measurement (mass/volume)on 07-25-2022 Cholesterol in HDL [Mass/Vol] 58 mg/dL >40 [facility] Work Phone: Comment on above: The drugs N-Acetylcy steine and Metamizole may falsely depress this assay. Reference Range HDL <40 mg/dL Low HDL Cholesterol HDL >or= 60 mg/dL High HDL Cholesterol Serum or plasma cholesterol in VLDL measurement (mass/volume)on 07-25-2022 Cholesterol in VLDL [Mass/Vol] 12 mg/dL 5-40 [facility] Work Phone: Serum or plasma creatinine m easurement (mass/volume)on 07-25-2022 Creatinine [Mass/Vol] 0.68 mg/dL 0.55-1.02 [facility] Work Phone: Comment on above: The validity of the calculated GFR & GFRAA in patients over 70 years has not been determined. Clinical correlation is essential. Serum or plasma low density lipoprotein (LDL) cholesterol measurement (mass/volume)on 07-25-2022 Cholesterol in LDL [Mass/Vol] 81 mg/dL 0-130 [facility] Work Phone: Serum or plasma urea nitroge n measurement (mass/volume)on 07-25-2022 Urea nitrogen [Mass/Vol] 10 mg/dL 7-18 [facility] Work Phone: Thin prep Papanicolaou smear with manual screeningon 07-25-2022 Thin prep Papanicolaou smear with manual screening 19 U/L 15-37 [facility] Work Phone: Thin prep Papanicolaou smear with manual screening 8 5-15 [facility] Work Phone: Vital Signs Date Time Vital Sign Value Performing Clinician Faci lity 08-06-2025 08:20-0400 Body temperature 97.1 [degF] Dr. Erma Quiros MD Work Phone: [facility] 08-06-2025 08:20-0400 Diastolic blood pressure 59 mm[Hg] Dr. Erma Quiros MD Work Phone: [facility] 08-06-2025 08:20-0400 Heart rate 61 /min Dr. Erma Quiros MD Work Phone: [facility] 08-06-2025 08:20-0400 Respiratory rate 16 /min Dr. Erma Quiros MD Work Phone: [facility] 08-06-2025 08:20-0400 SaO2% (BldA) [Mass fraction] 95 % Dr. Erma Quiros MD Work Phone: [facility] 08-06-2025 08:20-0400 Systolic blood pressure 104 mm[Hg] Dr. Erma Quiros MD Work Phone: [facility] 08-06-2025 06:35-0400 Body height 157.[address] Erma Quiros MD Work Phone: [facility] 08-06-2025 06:35-0400 Body mass index (BMI) [Ratio] 29.4 kg/m2 Dr. Erma Quiros MD Work Phone: [facility] 08-06-2025 06:35-0400 Body weight 72.[address] Erma Quiros MD Work Phone: [facility] 06-16-2025 12:56-0400 Body height 160.[address] Erma Quiros MD Work Phone: [facility] 06-16-2025 12:56-0400 Body mass index (BMI) [Ratio] 29.2 kg/m2 Dr. Erma Quiros MD Work Phone: [facility] 06-16-2025 12:56-0400 Body weight 74.[address] Erma Quiros MD Work Phone: [facility] 06-16-2025 12:56-0400 Diastolic blood pressure 83 mm[Hg] Dr. Erma Quiros MD Work Phone: [facility] 06-16-2025 12:56-0400 Heart rate 74 /min Dr. Erma Quiros MD Work Phone: [facility] 06-16-2025 12:56-0400 SaO2% (BldA) [Mass fraction] 95 % Dr. Erma Quiros MD Work Phone: [facility] 06-16-2025 12:56-0400 Systolic blood pressure 133 mm[Hg] Dr. Erma Quiros MD Work Phone: [facility] 03-25-2025 08:13-0400 Body height 160.[address] Erma Quiros MD Work Phone: [facility] 03-25-2025 08:13-0400 Body mass index (BMI) [Ratio] 30.9 kg/m2 Dr. Erma Quiros MD Work Phone: [facility] 03-25-2025 08:13-0400 Body temperature 98.2 [degF] Dr. Erma Quiros MD Work Phone: [facility] 03-25-2025 08:13-0400 Body weight 79.[address] Erma Quiros MD Work Phone: [facility] 03-25-2025 08:13-0400 Diastolic blood pressure 80 mm[Hg] Dr. Erma Quiros MD Work Phone: [facility] 03-25-2025 08:13-0400 Heart rate 90 /min Dr. Erma Quiros MD Work Phone: [facility] 03-25-2025 08:13-0400 Respiratory rate 18 /min Dr. Erma Quiros MD Work Phone: [facility] 03-25-2025 08:13-0400 SaO2% (BldA) [Mass fraction] 95 % Dr. Erma Quiros MD Work Phone: [facility] 03-25-2025 08:13-0400 Systolic blood pressure 140 mm[Hg] Dr. Erma Quiros MD Work Phone: [facility] 11-07-2023 14:24-0500 Body height 160.[address] Mandeep Segura Work Phone: [facility] 11-07-2023 14:24-0500 Body mass index (BMI) [Ratio] 28.9 kg/m2 Dr. Mandeep Segura Work Phone: [facility] 11-07-2023 14:24-0500 Body temperature 97.2 [degF] Dr. Mandeep Segura Work Phone: [facility] 11-07-2023 14:24-0500 Body weight 74.[address] Mandeep Segura Work Phone: [facility] 11-07-2023 14:24-0500 Diastolic blood pressure 60 mm[Hg] Dr. Mandeep Segura Work Phone: [facility] 11-07-2023 14:24-0500 Heart rate 74 /min Dr. Mandeep Segura Work Phone: [facility] 11-07-2023 14:24-0500 Respiratory rate 16 /min Dr. Mandeep Segura Work Phone: [facility] 11-07-2023 14:24-0500 SaO2% (BldA) [Mass fraction] 97 % Dr. Mandeep Segura Work Phone: [facility] 11-07-2023 14:24-0500 Systolic blood pressure 118 mm[Hg] Dr. Mandeep Segura Work Phone: [facility] 09-13-2023 09:01-0400 Body height 160.[address] Mandeep Segura Work Phone: [facility] 09-13-2023 09:00-0400 Body mass index (BMI) [Ratio] 29.6 kg/m2 Dr. Mandeep Segura Work Phone: [facility] 09-13-2023 09:00-0400 Body weight 75.[address] Mandeep Segura Work Phone: [facility] 09-13-2023 09:00-0400 Diastolic blood pressure 89 mm[Hg] Dr. Mandeep Segura Work Phone: [facility] 09-13-2023 09:00-0400 Systolic blood pressure 139 mm[Hg] Dr. Mandeep Segura Work Phone: [facility] Encounters Encounter Date Encounter Type Care Provider Facility Start: 09-25-2025 jelani Herndon Facility :[facility] Start: 09-17-2025 ambulatory Ben Traore Facility: [facility] Start: 09-16-2025 End: 09-16-2025 ambulatory [facility] Facility:[facility] Start: 08-10-2025 ambulatory Erma Quiros Rossyi ty:[facility] Start: 08-06-2025 Non-patient / Non-visit Adrian Lopez DO -[facility] Start: 08-06-2025 End: 08-06-2025 Admission to same day surgery center Adrian Lopez DO -Endoscopy Work Phone: Start: 08-06-2025 End: 08-06-[address] Erma Quiros MD Work Phone: -Endoscopy Start: 06-16-2025 End: 06-16-[address] Ben Traore MD -[facility] Work Phone: Start: 06-16-2025 End: 06-16-[address] Erma Quiros MD Work Phone: -[facility] Start: 04-28-[address] Erma Quiros MD -[facility] Work Phone: Start: 04-28-2025 ambulatory Erma Blairi ty:[facility] Start: 04-13-2025 End: 04-13-[address] Erma Quiros MD Work Phone: [facility] Work Phone: Start: 04-13-2025 End: 04-13-[address] Bobby Torres DO -[facility] Start: 04-13-2025 End: 04-13-2025 ambulatory Erma Quiros Facility:[facility] Start: 03-30-2025 Encounter for genera l adult medical examination without abnormal findings Erma Quiros [facility] Start: 03-25-2025 End: 03-25-[address] Erma Quiros MD -[facility] Work Phone: Start: 03-25-2025 End: 03-25-[address] Erma Quiros MD [facility] Start: 03-25-2025 End: 03-25-[address] Erma Quiros MD Work Phone: [facility] Work Phone: Start: 03-25-2025 End: 03-25-2025 ambulatory [facility] Facility:[facility] Start: 10-06-2024 End: 10-06-2024 ambulatory [facility] Facility:[facility] Start: 11-07-2023 End: 11-07-[address] Mandeep Segura Work Phone: [facility] Work Phone: Start: 11-07-[address] Mandeep Segura Work Phone: [facility] Start: 11-07-2023 End: 11-07-2023 Encounter for general adult medical examination without abnormal findings Dr. Mandeep Segura Work Phone: [facility] Start: 11-07-2023 End: 11-07-[address] Mandeep Segura Work Phone: [facility] Work Phone: Start: 10-15-2023 End: 10-15-[address] Mandeep Segura Work Phone: [facility] Work Phone: Start: 10-15-2023 End: 10-15-[address] Mandeep Segura Work Phone: [facility] [place] Work Phone: Start: 09-13-2023 End: 09-13-[address] Mandeep Segura Work Phone: [facility] Work Phone: Start: 09-13-2023 End: 09-13-[address] [facility] Work Phone: Start: 09-13-2023 End: 09-13-[address] Mandeep Segura Work Phone: [facility] [place] Work Phone: Start: 08-31-2023 End: 08-31-[address] Mandeep Segura Work Phone: [facility] Work Phone: Start: 08-31-2023 End: 08-31-[address] Mandeep Segura Work Phone: [facility]patient [facility] Work Phone: Start: 08-21-2023 Non-patient / Non-visit Dr. Mandeep Segura Work Phone: [facility] Start: 08-21-[address] Mandeep cyr [facility] Work [facility] Start: 05-25-2023 End: 05-25-2023 ambulatory [facility] Work Phone: Start: 05-25-2023 End: 05-25-2023 [facility] Work Phone: Start: 02-23-2023 End: 02-23-2023 [facility] encounter [facility] Work [facility]: Start: 07-25-2022 End: 07-25-[address] Mandeep Segura Work Phone: [facility] Work Phone: Start: 07-25-2022 End: 07-25-[address] Mandeep Segura Work Phone[facility] Start: 06-13-2022 Non-patient / Non-visit Dr. Mandeep Segura Work Phone: [facility] Start: 06-13-[address] Mandeep cyr Work Phone: [facility]Cardi[facility] Procedures Date Procedure Procedure Detail Performing Clinician Start: 08-06-[address] Erma Quiros MD Work Phone: Start: 04-28-[address] of liver Dr[address] Lane Quiros MD Work Phone: Start: 08-31-[address] Mandeep Segura Work Phone: Start: 05-25-2023 X-ray of cervical spine Plan of Treatment Date Care Activity Detail Author Start: 08-10-2025 Registered Referred Registered [facility] -[facility] Services Work Phone: Start: 08-06-2025 Patient discharge [facility] Start: 03-25-2025 CBC W Auto Differential panel - Blood [facility] Start: 03-25-2025 Comprehensive metabolic 1999 panel - Serum or Plasma [facility] Start: 03-25-2025 Lipid 1995 panel - Serum or Plasma [facility] Start: 11-07-2023 Patient referral [facility] Work Phone: Start: 09-13-2023 Liquid based cervical cytology screening [facility] Acute hepatitis 1999 panel - Serum [facility] Alanine aminotransfe rase [Enzymatic activity/volume] in Serum or Plasma [facility] Albumin [Mass/volume ] in Serum or Plasma [facility] Alkaline phosphatase [Enzymatic activity/volume] in Serum or Plasma [facility] Anion gap in Serum or Plasma [facility] Bilirubin, total measurement [facility] BUN/Creatinine ratio [facility] C reactive protein [Mass/volume] in Serum or Plasma [facility] Calcium [Mass/volume ] in Serum or Plasma [facility] Carbon dioxide, tota l [Moles/volume] in Central venous blood [facility] CBC W Auto Different ial panel - Blood [facility] Ceruloplasmin [Mass/ volume] in Serum or Plasma [facility] Cholesterol [Mass/vo lume] in Serum or Plasma [facility] Cholesterol in HDL [Mass/volume] in Serum or Plasma [facility] Comprehensive metabo lic 1999 panel - Serum or Plasma [facility] Creatinine [Mass/vol ume] in Serum or Plasma [facility] Cytoplasmic ANCA Screen [facility] Erythrocyte mean cor puscular volume determination [facility] Ferritin [Mass/volum e] in Serum or Plasma [facility] Glucose [Mass/volume ] in Serum or Plasma [facility] Hematocrit [Volume F raction] of Blood [facility] Hemoglobin [Mass/vol ume] in Blood [facility] Hemoglobin A1c/Hemoglobin.total in Blood [facility] Hepatitis B virus go rface Ab [Presence] in Serum [facility] Immunoglobulin measurement [facility] Iron and Iron bindin g capacity panel - Serum or Plasma [facility] Leukocytes [#/volume ] in Blood [facility] Lipid 1996 panel - S alyssa or Plasma [facility] Low density lipoprot ein cholesterol measurement [facility] Mean corpuscular hem oglobin concentration determination [facility] Mean corpuscular hem oglobin determination [facility] Measurement of renal function [facility] Mitochondria Ab [Pre sence] in Serum [facility] Neutrophil count [facility] Neutrophil percent differential count [facility] Path report.final Dx Spec [facility] Patient referral [facility] Work Phone: Platelets [#/volume] in Blood [facility] Potassium measurement [facility] Prothrombin time [facility] Red blood cell count [facility] Red cell distributio n width determination [facility] Serum chloride measurement [facility] Serum immunofixation [facility] Smooth muscle Ab [Pr esence] in Serum [facility] Sodium measurement [facility] Total cholesterol:HD L ratio measurement [facility] Total protein measurement [facility] Triglycerides measurement [facility] Urea nitrogen [Mass/ volume] in Serum or Plasma [facility] VLDL cholesterol measurement [facility] Immunizations Immunization Date Immunization Notes Care Provider Fa jewell 07-31-2025 hepatitis B vaccine, unspecified formulation Dr. Erma Quiros MD Work Phone: [facility] 07-31-[address] Erma Quiros MD Work Phone: [facility] 06-09-2025 Pneumococcal Vaccine PCV20 (Prevnar 20) Dr. Erma Quiros MD Work Phone: [facility] 05-22-2025 tetanus toxoid, redu gal diphtheria toxoid, and acellular pertussis vaccine, adsorbed Dr. Erma Quiros MD Work Phone: [facility] 09-01-[address] Mandeep Segura Work Phone: [facility] Payers Date Payer Category Payer Unknown [id number] 2024 Self-pay [id number] 2024 Unknown [id number] 2013 Private Health Insurance [id number] Unknown [id number] 2.16.8 [id number] Unknown [id number] 2.16.8 [id number] Unknown [id number] 2.16.8 [id number] Unknown [id number] 2.16.8 [id number] Unknown [id number] 2.16.8 [id number] Unknown [id number] 2.16.8 [id number] Unknown [id number] 2.16.8 [id number] Unknown [id number] 2.16.8 [id number] Unknown [id number] 2.16.8 [id number] Unknown [id number] 2.16.8 [id number] Unknown [id number] 2.16.8 [id number] Unknown [id number] 2.16.8 [id number] Social History Date Type Detail Facility Start: 05-12-2021 End: 11-07-2023 Tobacco smoking status NHIS Unknown if ever smoked [facility] Start: 11-28-2013 Occasional [facility] Start: 11-28-2013 None [facility] Start: 11-28-2013 With Family [facility] Start: 11-28-2013 Non-smoker [facility] Start: 1965 Sex Assigned At Female [facility] Start: 12-03-2023 End: 08-03-2025 Tobacco smoking status NHIS Ex-smoker (finding) [facility] Not [facility] Goals Date Patient Goal Desired Activity /State Mental Status Date Assessment Result Facility 08-06-2025 Cognitive function Voice/Name [facility] Work Phone: Clinical Notes 09-13-2023 to 08-06-2025 Note Date & Type Note Facility 08-06-2025 History and physical note Note Date/Time August 06, 2025 6:44am [facility] Medical Records Department [address] [place] [address] History & Physical Exam 08/06/25 0642 MR#: [id number] Acct: [id number] Name: LANCE ANGELES Rep #:[id number] : 1965 60 From: Adrian Friend DO PCP: Dr. Erma Quiros MD Status:R [facility] Location: [place] [address] HPI - General General Date of Admission: 08/06/25 Date of Service: 08/06/25 Chief Complaint: GERD HPI Narrative LANCE ANGELES, is a 60 F who present Chief Complaint: GERD US abd/ elastography 06.27.25- Liver measures 16.1cm, Stiffness 9.4 kPa 5.14.25 Fib-4 1.74 06/16/2025: Patient was referred by PCP for elevated liver enzymes and liver fibrosis on ultrasound. She does not have acute abdominal related symptoms including abdominal pain/discomfort, jaundice, GI bleed but has chronic GERD formore than 15 to 20 years and is [...] liver disease. Her father, grandfather had RA [facility] Medical History Wears glasses Post-menopausal Thyroid disease Back pain Dietary restriction Gastric reflux Leg cramps Former smoker History of stress test Hepatic fibrosis Transaminitis Vertigo Muscle cramps Preventative health care Elevated liver enzymes Graves disease Home Medications ?Medication ?Instructions ?Recorded ?Last Taken ?Type cetirizine 10 mg capsule (Zyrtec) 10 mg PO QDAY Unknown History omeprazole 20 mg delayed 20 mg PO DAILY 04/17/20 Unkn own History release,disintegrating tablet cholecalciferol (vitamin D3) 50 50 mcg PO DAILY Unknown History mcg (2,000 unit) capsule multivitamin 1 tab PO DAILY 05/06/20 Unkn own History clobetasol 0.05 % topical ointment 1 applic topical QH S #60 grams 12/03/23 Unknown Rx conjugated estrogens 0.45 1 tab PO DAILY #90 tabs 2 05/05 Unknown Rx mg-bazedoxifene 20 mg tablet (Duavee) Held on 08/03/25. Instructions: Ordered calcium 250 mg (as 2 tab PO HS 03/25/25 Unknown History citrate)-vitamin D3 5 mcg (200 unit) tablet (Citracal Regular) levothyroxine 88 mcg tablet 88 mcg PO DAILY 03/25/25 0 08/06/25 History covid vaccine #1 ea 07/31/25 Unknown Rx famotidine 20 mg tablet (Pepcid) 20 mg PO BID #180 tab s 07/31/25 Unknown Rx hepatitis B virus vacc.rec(PF) 5 1 ml subcut ONCE #5 m L 07/31/25 Unknown Rx mcg/0.5 mL intramuscular susp Allergy/AdvReac Type Severity Reaction Status Date / Time Environmental Allergies: Allergy Mild SNEEZE, Verified 08/06/25 06:33 Uncoded ITCHY EYES, RUNNY NOSE Family History Father Heart disease Mother No problems noted. 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 current occupational exposures/hazards: No history of recent [...] Yes additional social history: Javon Barry- Boyfriend ROS Constitutional Constitutional: Denies fatigue, fever(s), poor appetite, weight gain or weight loss Gastrointestinal Gastrointestinal: Denies belching, bloating, change in bowel habits, change in stool character, chewing difficulty, coffee ground emesis, constipation, cramping, diarrhea, dyspepsia, dysphagia, early satiety, excessive flatus, fecalincontinence, heartburn, hematemesis, hematochezia, hemorrhoids, loose stools, melena, nausea, odynophagia, rectal bleeding, tenesmus, vomiting or weight changes Vital Signs Vital Signs Vital Signs: 08/06/25 06:35 08/06/25 06:35 Temperature 97.2 F L Temperature Source Temporal Pulse Rate 69 Respiratory Rate 16 Respiratory Pattern Normal Blood Pressure 140/67 H Blood Pressure Mean 91 Blood Pressure Source Monitor Blood Pressure Position Semi-Fowlers Blood Pressure Location Left Arm Pulse Ox 98 Oxygen Delivery Method Room Air Weight Weight: 160 lb 11.472 oz Body Mass Index (BMI) 29.4 Physical Exam Const alert, oriented x3, no apparent distress and healthy appearing General Appearance: cooperative GI normal to inspection, nondistended, normoactive bowel sounds, soft to palpation,non-tender and non-distended Percussion: normal to percussion Rectal Exam: deferred Assessment & Plan Assessment/Plan (1) GERD (gastroesophageal reflux disease): PLAN: Assessment and Plan Assessment and Plan (1) Elevated liver enzymes: Status: Chronic Comment: resolved Plan: Liver chemistry reviewed with the patient. Patient had elevated AST from April 2024 and ALT since September 2019 in 50s and sometimes in 60s. ALP normal. Albumin, globulin, A/G ratio and total bilirubin normal. Patient also has decreasing trend of platelet count over the years but not thrombocytopenia yet. Autoimmune disease might be a concern. Liver ultrasound with elastography reviewed with the patient. Size unremarkable, diffusely echogenic with fatty infiltration. Contour normal. 1.4Demeter cyst in the anterior aspect of right lobe of liver. Medial velocity 1.76 m/s, medial fibrosis, 9.4 kPa suggestive of mild to moderate fibrosis. Possible differential service include viral hepatitis, autoimmune disease, metabolic disease, granulomatous disease and others. Comprehensive labs ordered. Follow-up in 3 months (2) Hepatic fibrosis: Status: Acute Plan: Mild hyperglycemia. A1c ordered. Needs to rule out prediabetes/diabetes mellitus (3) Hepatic cyst: Status: Acute Plan: Incidental finding of liver cyst as mentioned above. Patient on Duave, which contains estrogen component and bazedoxifene, SERM, helps reported translating from potential discussed with estrogen alone therapy She has been taking for 1 year. Advised not to take for more than 2 years. Risk of developing liver cyst/hepatic adenoma/FNH. (4) GERD (gastroesophageal reflux disease): Status: Acute Plan: Chronic, on PPI for 15 to 20 years. EGD scheduled. Advised to alternate omeprazole with Pepcid about long-term complications of PPI. 08/06/25 2657 <Electronically signed by Adrian Lopez DO> Cosigner Signature (if applicable): CC: Dr. Erma Quiros MD; Adrian Lopez DO~ Signed [facility] Work Phone: 1(192) 993-194309-25-2025 Procedure note [facility] Medical Records Department [address] [place] [address] EGD Report MR#: [id number] Acct: [id number] Name: LANCE ANGELES Rep #:[id number] : 1965 60 From: Adrian Lopez DO PCP: Dr. Erma Quiros MD Status:R EG SDC Patient Name: Lance Angeles Procedure Date: 08/06/2025 7:36 AM Date of : 1965 Age: 60 Procedure: Upper GI endoscopy Indications: Heartburn, Suspected esophageal reflux Providers: Adrian Lopez DO Referring MD: Erma Quiros MD Medicines: Monitored Anesthesia Care Patient Profile: This is a 60 year old female. Refer to note in patient chart for documentation of history and physical. Patient has symptoms of chronic heartburn. Complications: No immediate complications. Procedure: Pre-Anesthesia Assessment: - Prior to the procedure, a History and Physical was performed, and patient medications and allergies were reviewed. The patient is competent. The risks and benefits of the procedure and the sedation options and risks were discussed with the patient. All questions were answered and informed consent was obtained. Patient identification and proposed procedure were verified by the physician. Mental Status Examination: alert and oriented. Airway Examination: normal oropharyngeal airway and neck mobility. Respiratory Examination: clear to auscultation. CV Examination: normal. Prophylactic Antibiotics: The patient does not require prophylactic antibiotics. Prior Anticoagulants: The patient has taken no anticoagulant or antiplatelet agents except for NSAID medication. ASA Grade Assessment: II - A patient with mild systemic disease. After reviewing the risks and benefits, the patient was deemed in satisfactory condition to undergo the procedure. The anesthesia plan was to use monitored anesthesia care (MAC). Immediately prior to administration of medications, the patient was re-assessed for adequacy to receive sedatives. The heart rate, respiratory rate, oxygen saturations, blood pressure, adequacy of pulmonary ventilation, and response to care were monitored throughout the procedure. The physical status of the patient was re-assessed after the procedure. After obtaining informed consent, the endoscope was passed under direct vision. Throughout the procedure, the patient's blood pressure, pulse, and oxygen saturations were monitored continuously. The gastroscope was introduced through the mouth, and advanced to the second part of duodenum. The upper GI endoscopy was accomplished without difficulty. The patient tolerated the procedure well. Scope In: 7:49:17 AM Scope Out: 7:51:58 AM Total Procedure Duration Time 0 hours 2 minutes 41 seconds Findings: No gross lesions were noted in the entire esophagus. Biopsies were taken with a cold forceps for histology. Verification of patient identification for the specimen was done. Estimated blood loss was minimal. The entire examined stomach was normal. The examined duodenum was normal. Impression: - No gross lesions in the entire esophagus. Biopsied. - Normal stomach. - Normal examined duodenum. Recommendation: - Discharge patient to home. - Resume previous diet. - Continue present medications. - Await pathology results. Procedure Code(s): --- Professional --- 05133, Esophagogastroduodenoscopy, flexible, transoral; with biopsy, single or multiple CPT copyright 2021 [employer]. All rights reserved. The codes documented in this report are preliminary and upon button facing machine operator review may be revised to meet current compliance requirements. Adrian Lopez DO 08/06/2025 7:59:21 AM This report has been signed electronically. Number of Addenda: 0 Note Initiated On: 08/06/2025 7:36 AM 08/06/25 0759 Date _ Adrian Lopez DO Cosigner Signature: Date (if indicated) CC: Dr. Erma Quiros MD; Adrian Lopez DO ~ Date Dictated: 08/06/25 0736 Date Transcribed: Paramedical Aide: RF Signed [facility]09-25-2025 Procedure note [facility] Medical Records Department [address] [place] [address] Provation Physician Letter MR#: [id number] Acct: [id number] Name: LANCE ANGELES Rep #:[id number] : 1965 60 From: Adrian Lopez DO PCP: Dr. Erma Quiros MD [place] [place]25 Erma Quiros MD [address] [place] [address] [place] [address] Re : Upper GI endoscopy procedure for Lance Angeles Dear Dr. Quiros This procedure was performed on , August 06, 2025. My impressions and recommendations are as follows: Impressions : - No gross lesions in the entire esophagus. Biopsied. - Normal stomach. - Normal examined duodenum. Recommendations : - Discharge patient to home. - Resume previous diet. - Continue present medications. - Await pathology results. My findings are described in the full procedure note, which is enclosed. If I can be of further assistance, please feel free to contact me at . Sincerely, Adrian Lopez DO 08/06/2025 7:59:21 AM This report has been signed electronically. 08/06/25758 Date _ Adrian Finchigntanya Signature: Date (if indicated) CC: Dr. Erma Quiros MD; Adrian Lopez DO ~ Date Dictated: 08/06/2536 Date Transcribed: Paramedical Aide: RF Signed [facility]09-25-2025 Consult note [facility] Medical Records Department [address] [address] Anesthesia Postop Eval I 08/06/25 08 MR#: [id number] Acct: [id number] Name: LANCE ANGELES Rep #:[id number] : 1965 60 From: Devante Belcher PCP: Dr. Erma Quiros MD Status:R [facility] Y Race: C Location: [place] [address] Anesthesia: Postop Eval I Current Vital Signs Temperature: 97.7 F Pulse Rate: 67 Blood Pressure: 94/58 Respiratory Rate: 16 Pulse Ox: 97 Oxygen Delivery Method: Room Air Assessment Airway patent: Yes Spontaneous unlabored respirations: Yes Mental status: Asleep nausea: No Vomiting: No Anesthesia Complication: No Fluid Hydration Crystalloid volume administer (ml): 400 Total IV fluid infused: 400 Progress Note Anesthesia document: Postop Eval 1 completed: Yes 08/06/25 0804 > Date _ Devante Paultanya Najeraleandra Signature: Date CC: ~ Signed [facility]09-25-2025 Consult note [facility] Medical Records Department [address] [place] [address] Pre-Anesthesia Evaluation 08/06/25 0703 MR#: [id number] Acct: [id number] Name: LANCE ANGELES Rep #:[id number] : 1965 60 From: Doug José MD PCP: Dr. Erma Quiros MD Status:R [facility] Y Race: C Location: [place] [address] ASA Classification* ASA Classification ASA Classification: 2 Assessment & Plan Anesthesia* Anesthesia Assessment Anesthesia Assessment: Discussed sedation and/or anesthesia options, risks, benefits, and alternatives with patient/parents/legal guardian/POA. Questions invited. The patient/parents/legal guardian/POA seems to understand and agrees to proceedwith anesthesia plan. Reviewed the physical assessment, medical history, allergy history and patient home medications list prior to surgery/procedure/anesthetic and documented any changes. Performed airway and anesthesia risk assessments. Anesthesia Type Anesthesia Type: MAC History Source History Obtained from:: Patient and Chart Anesthesia Focused Assessment* Temperature: 97.2 F Pulse Rate: 69 Blood Pressure: 140/67 Respiratory Rate: 16 Pulse Ox: 98 Oxygen Delivery Method: Room Air Airway Assessment Mouth opens: >3 cm Mallampati Score: I Teeth Condition: Caps/Crowns (Patient has several crowns. They are all tight.) and Missing (Patientis missing a right upper molar. Rest are tight.) Neck Range of motion (ROM): Full ROM Labs Anesthesia Preop lab: CBC WBC, (4.4-11.0) 4.4 K/mm3 03/25/25, 08:43 RBC, (4.2-5.4) 4.19 M/mm3 L 03/25/25, 08:43 Hgb, (12.0-15.0) 13.2 g/dL 03/25/25, :43 Hct, (37-47) 37.7 % 03/25/25, :43 Plt Count, (150-450) 194 K/mm3 03/25/25, 08:43 CHEMISTRY Potassium, (3.3-5.1) 4.3 mmol/L 04/13/25, 08:24 Sodium, (133-145) 141 mmol/L 04/13/25, 08:24 Magnesium, (1.5-2.2) 2.0 mg/dL 04/13/25, 08:24 BUN, (4-19) 13 mg/dL 04/13/25, 08:24 Creatinine, (0.70-1.20) 0.70 mg/dL 04/13/25, 08:24 Glucose, (70-99) 113 mg/dL H 04/13/25, 08:24 TSH, (0.300-4.200) 1.620 uIU/mL 04/13/25, 08:24 COAG PT, (11.7-14.9) 12.3 SECONDS 08/05/21, 10:47 Pre-Assessment Diagnosis/Proposed Procedure Planned Operative Procedure(s): EGD Anesthesia History 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 When Was Last Pacemaker Check QUESTION #4 FULL TEXT: You/Your Family Experience fever (hyperthermia) with Anesthesia Last Oral Intake Last Oral intake: Last Oral Intake NPO since 23:00 08/06/25 06:35 Meds taken in AM with sips of water? Meds patient instructed to take am of surgery Any additional information?: Yes NPO since: 05:15 (Patient had her Synthroid at 5:15 AM) Meds takenin AM with sips of water?: Yes PONV PONV - machine setup operator: PONV - machine setup operator Female Yes 08/03/25 13:59 HX of Motion Sickness No 08/03/25 13:59 HX of N/V After Surgery No 08/03/25 13:59 Non-Smoker Yes 08/03/25 13:59 Duration of Surgery greater No 08/03/25 13:59 than 60 minutes Number of Risk Factors 2 08/03/25 13:59 PONV Score Moderate Risk 08/03/25 13:59 Height & Weight Height & Weight: Anesthesia: Height & Weight Height 5 ft 2 in 08/06/25 06:35 Weight: 72.9 kg 08/06/25 06:35 Body Mass Index (BMI) 29.4 08/06/25 06:35 Respiratory Assessment Respiratory Assessment - machine setup operator: Respiratory Tract Infection Hx - machine setup operator Hx Respiratory Tract Infection No 08/03/25 13:59 STOP Sleep Apnea STOP Sleep Apnea - machine setup operator: STOP Sleep Apnea - machine setup operator Hx Hypertension Yes: NO MEDS 08/03/25 13:59 Hx Sleep Apnea No 08/03/25 13:59 CPAP No 11/28/13 15:07 BIPAP No 11/28/13 15:07 Do you snore loudly (louder No 08/03/25 13:59 than talking or can be heard Do you often feel tired/ No 08/03/25 13:59 fatigued/ sleepy during daytime? Has anyone observed you stop No 08/03/25 13:59 breathing during sleep? STOP Results Negative 08/03/25 13:59 QUESTION #5 FULL TEXT : Do you snore loudly (louder than talking or can be heard through closeddoors)? 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 Specify any problems Hx of Preganancy in last 3 No 08/03/25 13:59 Months Nurse Filling Out Transfusion MGRIFFITH 08/03/25 13:59 & Questions: Date: 08/03/25 08/03/25 13:59 Time: 14:01 08/03/25 13:59 Patient unable to answer at this time (ie. confused, unrespo /Reproduction History /Reproductive History - machine setup operator: /Reproductive Hx- machine setup operator Hx Now No 08/03/25 13:59 Gestational Age (in weeks): EDC: Hx Hx Para Hx Section SAB No 08/03/25 13:59 Active Medications Active Medications: Current Medications Generic Name Dose Route Start Last Admin Trade Name Freq PRN Reason Stop Dose Admin Lactated Ringer's 1,000 mls @ 15 mls/hr 08/06/25 06:30 08/06/25 06:44 IV 15 mls/hr .Q48H SOPHIE Administration PFSH Medical History Wears glasses Post-menopausal Thyroid disease Back pain Dietary restriction Gastric reflux Leg cramps Former smoker History of stress test Hepatic fibrosis Transaminitis Vertigo Muscle cramps Preventative health care Elevated liver enzymes Graves disease Home Medications ?Medication ?Instructions ?Recorded ?Last Taken ?Type cetirizine 10 mg capsule (Zyrtec) 10 mg PO QDAY Unknown History omeprazole 20 mg delayed 20 mg PO DAILY 04/17/20 Unkn own History release,disintegrating tablet cholecalciferol (vitamin D3) 50 50 mcg PO DAILY Unknown History mcg (2,000 unit) capsule multivitamin 1 tab PO DAILY 05/06/20 Unkn own History clobetasol 0.05 % topical ointment 1 applic topical QH S #60 grams 12/03/23 Unknown Rx conjugated estrogens 0.45 1 tab PO DAILY #90 tabs 10/13 05/05 Unknown Rx mg-bazedoxifene 20 mg tablet (Duavee) Held on 08/03/25. Instructions: MD Ordered calcium 250 mg (as 2 tab PO HS 03/25/25 Unknown History citrate)-vitamin D3 5 mcg (200 unit) tablet (Citracal Regular) levothyroxine 88 mcg tablet 88 mcg PO DAILY 03/25/25 0 08/06/25 History covid vaccine #1 ea 07/31/25 Unknown Rx famotidine 20 mg tablet (Pepcid) 20 mg PO BID #180 tab s 07/31/25 Unknown Rx hepatitis B virus vacc.rec(PF) 5 1 ml subcut ONCE #5 m L 07/31/25 Unknown Rx mcg/0.5 mL intramuscular susp Allergy/AdvReac Type Severity Reaction Status Date / Time Environmental Allergies: Allergy Mild SNEEZE, Verified 08/06/25 06:33 Uncoded ITCHY EYES, RUNNY NOSE Family History Father Heart disease Mother No problems noted. 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 08/06/25 0714 jeni SANTO> Date _ Doug José MD Cosigner Signature: Date CC: ~ Signed [facility]09-25-2025 History and physical note [facility] Medical Records Department [address] [place] [address] History & Physical Exam 08/06/25 0642 MR#: [id number] Acct: [id number] Name: LANCE ANGELES Rep #:[id number] : 1965 60 From: [facility] Friend PCP: Dr. Erma Quiros MD Status:R [facility] Location: [place] [address] HPI - General General Date of Admission: 08/06/25 Date of Service: 08/06/25 Chief Complaint: GERD HPI Narrative LANCE ANGELES, is a 60 F who present Chief Complaint: GERD US abd/ elastography 8.16.- Liver measures 16.1cm, Stiffness 9.4 kPa 5.14.25 Fib-4 1.74 06/16/2025: Patient was referred by PCP for elevated liver enzymes and liver fibrosis on ultrasound. She does not have acute abdominal related symptoms including abdominal pain/discomfort, jaundice, GIbleed but has chronic GERD formore than 15 to 20 years and is [...] and had radioactive thyroid treatment and is onlevothyroxine for supplement. Her maternal aunt has liver disease. Her father, grandfather had RA [facility] Medical History Wears glasses Post-menopausal Thyroid disease Back pain Dietary restriction Gastric reflux Leg cramps Former smoker History of stress test Hepatic fibrosis Transaminitis Vertigo Muscle cramps Preventative health care Elevated liver enzymes Graves disease Home Medications ?Medication ?Instructions ?Recorded ?Last Taken ?Type cetirizine 10 mg capsule (Zyrtec) 10 mg PO QDAY Unknown History omeprazole 20 mg delayed 20 mg PO DAILY 04/17/20 Unkn own History release,disintegrating tablet cholecalciferol (vitamin D3) 50 50 mcg PO DAILY Unknown History mcg (2,000 unit) capsule multivitamin 1 tab PO DAILY 05/06/20 Unkn own History clobetasol 0.05 % topical ointment 1 applic topical QH S #60 grams 12/03/23 Unknown Rx conjugated estrogens 0.45 1 tab PO DAILY #90 tabs 10/13 05/05 Unknown Rx mg-bazedoxifene 20 mg tablet (Duavee) Held on 08/03/25. Instructions: MD Ordered calcium 250 mg (as 2 tab PO HS 03/25/25 Unknown History citrate)-vitamin D3 5 mcg (200 unit) tablet (Citracal Regular) levothyroxine 88 mcg tablet 88 mcg PO DAILY 03/25/25 0 08/06/25 History covid vaccine #1 ea 07/31/25 Unknown Rx famotidine 20 mg tablet (Pepcid) 20 mg PO BID #180 tab s 07/31/25 Unknown Rx hepatitis B virus vacc.rec(PF) 5 1 ml subcut ONCE #5 m L 07/31/25 Unknown Rx mcg/0.5 mL intramuscular susp Allergy/AdvReac Type Severity Reaction Status Date / Time Environmental Allergies: Allergy Mild SNEEZE, Verified 08/06/25 06:33 Uncoded ITCHY EYES, RUNNY NOSE Family History Father Heart disease Mother No problems noted. 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[employer] [employer] current occupational exposures/hazards: No history of recent [...] home: Yes additional social history: Javon Barry- Boyfrnereyda VAZQUEZ Constitutional Constitutional: Denies fatigue, fever(s), poor appetite, weight gain or weight loss Gastrointestinal Gastrointestinal: Denies belching, bloating, change in bowel habits, change in stool character, chewing difficulty, coffee ground emesis, constipation, cramping, diarrhea, dyspepsia, dysphagia, earlysatiety, excessive flatus, fecalincontinence, heartburn, hematemesis, hematochezia, hemorrhoids, loose stools, melena, nausea, odynophagia, rectal bleeding, tenesmus, vomiting or weight changes Vital Signs Vital Signs Vital Signs: 08/06/25 06:35 08/06/25 06:35 Temperature 97.2 F L Temperature Source Temporal Pulse Rate 69 Respiratory Rate 16 Respiratory Pattern Normal Blood Pressure 140/67 H Blood Pressure Mean 91 Blood Pressure Source Monitor Blood Pressure Position Semi-Fowlers Blood Pressure Location Left Arm Pulse Ox 98 Oxygen Delivery Method Room Air Weight Weight: 160 lb 11.472 oz Body Mass Index (BMI) 29.4 Physical Exam Const alert, oriented x3, no apparent distress and healthy appearing General Appearance: cooperative GI normal to inspection, nondistended, normoactive bowel sounds, soft to palpation,non-tender and non-distended Percussion: normal to percussion Rectal Exam: deferred Assessment & Plan Assessment/Plan (1) GERD (gastroesophageal reflux disease): PLAN: Assessment and Plan Assessment and Plan (1) Elevated liver enzymes: Status: Chronic Comment: resolved Plan: Liver chemistry reviewed with the patient. Patient had elevated AST from April 2024 and ALT since September 2019 in 50s and sometimes in 60s. ALP normal. Albumin, globulin, A/G ratio and total bilirubin normal. Patient also has decreasing trend of platelet count over the years but not thrombocytopenia yet. Autoimmune disease might be a concern. Liver ultrasound with elastography reviewed with the patient. Size unremarkable, diffusely echogenic with fatty infiltration. Contour normal. 1.4Demeter cyst in the anterior aspect of right lobe of liver. Medial velocity 1.76 m/s, medial fibrosis, 9.4 kPa suggestive of mild to moderate fibrosis. Possible differential service include viral hepatitis, autoimmune disease, metabolic disease, granulomatous disease and others. Comprehensive labs ordered. Follow-up in 3 months (2) Hepatic fibrosis: Status: Acute Plan: Mild hyperglycemia. A1c ordered. Needs to rule out prediabetes/diabetes mellitus (3) Hepatic cyst: Status: Acute Plan: Incidental finding of liver cyst as mentioned above. Patient on Duave, which contains estrogen component and bazedoxifene, SERM, helps reported translating from potential discussed with estrogen alone therapy She has been taking for 1 year. Advised not to take for more than 2 years. Risk of developing livercyst/hepatic adenoma/FNH. (4) GERD (gastroesophageal reflux disease): Status: Acute Plan: Chronic, on PPI for 15 to 20 years. EGD scheduled. Advised to alternate omeprazole with Pepcid about long-term complications of PPI. 08/06/25 0644 Cosigner Signature (if applicable): CC: Dr. Erma Quiros MD; Adrian Lopez, ~ Signed [facility]09-25-2025 [facility] Medical Records Department [address] [place] [id number] History Physical Exam 08/06/25 0642 MR#: [id number] Acct: [id number] Name: LANCE ANGELES Rep #: [id number] : 1965 60 From: Adrian Lopez DO PCP: Dr. Erma Quiros MD Status:[facility] Location: [place] [address] HPI - General General Date of Admission: 08/06/25 Date of Service: 08/06/25 Chief Complaint: GERD HPI Narrative LANCE ANGELES, is a 60 F who present Chief Complaint: GERD US abd/ elastography 8.16.25- Liver measures 16.1cm, Stiffness 9.4 kPa 5.14.25 Fib-4 1.74 06/16/2025: Patient was referred by [...] liver disease. Her father, grandfather had RA [facility] Medical History Wears glasses Post-menopausal Thyroid disease Back pain Dietary restriction Gastric reflux Leg cramps Former smoker History of stress test Hepatic fibrosis Transaminitis Vertigo Muscle cramps Preventative health care Elevated liver enzymes Graves disease Home Medications ???Medication ???Instructions ???Recorded ???Last Taken ???Type cetirizine 10 mg capsule (Zyrtec) 10 mg PO QDAY 01/16/18 Unknown Hi story omeprazole 20 mg delayed 20 mg PO DAILY 04/17/20 Unknown Hi story release,disintegrating tablet cholecalciferol (vitamin D3) 50 50 mcg PO DAILY 05/06/20 Unknown H istory mcg (2,000 unit) capsule multivitamin 1 tab PO DAILY 05/06/20 Unknown Hi story clobetasol 0.05 % topical ointment 1 applic topical QHS #60 grams 0 12/03/23 Unknown Rx conjugated estrogens 0.45 1 tab PO DAILY #90 tabs 11/06/24 U nknown Rx mg-bazedoxifene 20 mg tablet (Duavee) Held on 08/03/25. Instructions: Ordered calcium 250 mg (as 2 tab PO HS 03/25/25 Unknown Histo ry citrate)-vitamin D3 5 mcg (200 unit) tablet (Citracal Regular) levothyroxine 88 mcg tablet 88 mcg PO DAILY 03/25/25 08/06/25 History covid vaccine #1 ea 07/31/25 Unknown Rx famotidine 20 mg tablet (Pepcid) 20 mg PO BID #180 tabs 07/31/25 Un known Rx hepatitis B virus vacc.rec(PF) 5 1 ml subcut ONCE #5 mL 07/31/25 Un known Rx mcg/0.5 mL intramuscular susp Allergy/AdvReac Type Severity Reaction Status Date / Time Environmental Allergies: Allergy Mild SNEEZE, Verified 08/06/25 06:33 Uncoded ITCHY EYES, RUNNY NOSE Family History Father Heart disease Mother No problems noted. 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[employer] [employer] current occupational exposures/hazards: No history of recent [...] home: Yes additional social history: Javon Barry- Boyfrienbecky VAZQUEZ Constitutional Constitutional: Denies fatigue, fever(s), poor appetite, weight gain or weight loss Gastrointestinal Gastrointestinal: Denies belching, bloating, change in bowel habits, change in stool character, chewing difficulty, coffee ground emesis, constipation, cramping, diarrhea, dyspepsia, dysphagia, early satiety, excessive flatus, fecal incontinence, heartburn, hematemesis, hematochezia, hemorrhoids, loose stools, melena, nausea, odynophagia, rectal bleeding, tenesmus, vomiting or weight changes Vital Signs Vital Signs Vital Signs: 08/06/25 06:35 08/06/25 06:35 Temperature 97.2 F L Temperature Source Temporal Pulse Rate 69 Respiratory Rate 16 Respiratory Pattern Normal Blood Pressure 140/67 H Blood Pressure Mean 91 Blood Pressur (more content not included)...[facility]08-05-2025 Evaluation note* Diagnosis Onset Date Resolution Status Admit Date GERD (gastroesophageal reflux disease) acute June 16, 2025 12:48pm Hepatic cyst acute June 16, 2025 12:48pm Hepatic fibrosis acute June 162024 12:48pm Elevated liver enzymes chronic Au 2024 12:48pm GERD (gastroesophageal reflux disease) acute August 06, 2025 6:13am [facility] Work Phone: 1(452) 851-930005-14-2025 Evaluation note* Diagnosis Onset Date Resolution Status Admit Date Muscle cramps acute March 25, 025 8:07am Preventative health care acute March 25, 2025 8:07am Vertigo acute March 25, 2025 8:07am [facility] Work Phone: 1(646) 186-499411-02-2023 NotePap Smear Specimen AdequacyNovember 2022 10:40amComment.Satisfactory for evaluation. Endocervical and/or squamous metaplasticcells (endocervical component)are present.[facility] INTER[facility]ACED A#[id number] Valley Medical CenterComment on above:Satisfactory for evaluation. Endocervical and/or squamous metaplasticcells (endocervical component)are present.09-13-2023 NotePap Smear Specimen AdequacyNov2022 10:40amComment.Satisfactory for evaluation. Endocervical and/or squamous metaplasticcells (endocervical component)are present.[facility] INTER[facility]ACED A#[id number] Valley Medical CenterComascension [place] on above:Satisfactory for evaluation. Endocervical and/or squamous metaplasticcells (endocervical component)are present.Consult note [facility] Medical Records Department [address] [place] [address] Anesthesia Postop Eval II 08/06/25 1045 MR#: [id number] Acct: [id number] Name: LANCE ANGELES Val Rep #:[id number] : 1965 60 From: Jerrica ALEXANDRA PCP: Dr. Erma Quiros MD Status:D EP SD Y Race: C Location: EN Anesthesia Postop Eval I Sum Postop Eval Completion status Anesthesia document: Postop Eval 1 completed: Yes Anesthesia Postop Eval I Summary Anesthesia Postop Eval I Summary: Anesthesia Postop Eval I: Assessment Summary Airway patent Yes 08/06/25 08:04 [email or web address] Spontaneous unlabored Yes 08/06/25 08:04 [email or web address] respirations Mental status Asleep 08/06/25 08:04 [email or web address] nausea No 08/06/25 08:04 [email or web address] Vomiting No 08/06/25 08:04 [email or web address] Anesthesia Postop Eval I: Fluid Summary Crystalloid volume administer 400 08/06/25 08:04 [email or web address] (ml) Colloids volume administered ( ml) Blood Product volume administered (ml) Total IV fluid infused 400 08/06/25 08:04 [email or web address] Anesthesia Postop Eval I: Summary Notes Anesthesia Complication No 08/06/25 08:04 [email or web address] Anesthesia Complication Comment: Post-operative progress note Anesthesia: Postop Eval II Evaluation Mental status: Awake and Calm Pain Level: 0 nausea: No Vomiting: No Complications Anesthesia Complication: No 08/06/25 1045 READING RECOVERY TEACHER> Date _ Jerrica Silvestre READING RECOVERY TEACHER Cosigner Signature: Date CC: ~ Signed [facility] CenterConsult note Author Doug [facility] Note Date/Time August 06, 2025 7:14am [facility] Medical Records Department [address] [place] [address] Pre-Anesthesia Evaluation 08/06/25 0703 MR#: [id number] Acct: [id number] Name: LANCE ANGELES Rep #:[id number] : 1965 60 From: Doug José MD PCP: Dr. Erma Quiros MD Status:R EG SDC Y Race: C Location: [facility]11-1 ASA Classification* ASA Classification ASA Classification: 2 Assessment & Plan Anesthesia* Anesthesia Assessment Anesthesia Assessment: Discussed sedation and/or anesthesia options, risks, benefits, and alternatives with patient/parents/legal guardian/POA. Questions invited. The patient/parents/legal guardian/POA seems to understand and agrees to proceedwith anesthesia plan. Reviewed the physical assessment, medical history, allergy history and patient home medications list prior to surgery/procedure/anesthetic and documented any changes. Performed airway and anesthesia risk assessments. Anesthesia Type Anesthesia Type: MAC History Source History Obtained from:: Patient and Chart Anesthesia Focused Assessment* Temperature: 97.2 F Pulse Rate: 69 Blood Pressure: 140/67 Respiratory Rate: 16 Pulse Ox: 98 Oxygen Delivery Method: Room Air Airway Assessment Mouth opens: >3 cm Mallampati Score: I Teeth Condition: Caps/Crowns (Patient has several crowns. They are all tight.) and Missing (Patient is missing a right upper molar. Rest are tight.) Neck Range of motion (ROM): Full ROM Labs Anesthesia Preop lab: CBC WBC, (4.4-11.0) 4.4 K/mm3 03/25/25, 08:43 RBC, (4.2-5.4) 4.19 M/mm3 L 03/25/25, 08:43 Hgb, (12.0-15.0) 13.2 g/dL 03/25/25, 08:43 Hct, (37-47) 37.7 % 03/25/25, 08:43 Plt Count, (150-450) 194 K/mm3 03/25/25, 08:43 CHEMISTRY Potassium, (3.3-5.1) 4.3 mmol/L 04/13/25, 08:24 Sodium, (133-145) 141 mmol/L 04/13/25, 08:24 Magnesium, (1.5-2.2) 2.0 mg/dL 04/13/25, 08:24 BUN, (4-19) 13 mg/dL 04/13/25, 08:24 Creatinine, (0.70-1.20) 0.70 mg/dL 04/13/25, 08:24 Glucose, (70-99) 113 mg/dL H 04/13/25, 08:24 TSH, (0.300-4.200) 1.620 uIU/mL 04/13/25, 08:24 COAG PT, (11.7-14.9) 12.3 SECONDS 08/05/21, 10:47 Pre-Assessment Diagnosis/Proposed Procedure Planned Operative Procedure(s): EGD Anesthesia History 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 When Was Last Pacemaker Check QUESTION #4 FULL TEXT: You/Your Family Experience fever (hyperthermia) with Anesthesia Last Oral Intake Last Oral intake: Last Oral Intake NPO since 23:00 08/06/25 06:35 Meds taken in AM with sips of water? Meds patient instructed to take am of surgery Any additional information?: Yes NPO since: 05:15 (Patient had her Synthroid at 5:15 AM) Meds taken in AM with sips of water?: Yes PONV PONV - machine setup operator: PONV - machine setup operator Female Yes 08/03/25 13:59 HX of Motion Sickness No 08/03/25 13:59 HX of N/V After Surgery No 08/03/25 13:59 Non-Smoker Yes 08/03/25 13:59 Duration of Surgery greater No 08/03/25 13:59 than 60 minutes Number of Risk Factors 2 08/03/25 13:59 PONV Score Moderate Risk 08/03/25 13:59 Height & Weight Height & Weight: Anesthesia: Height & Weight Height 5 ft 2 in 08/06/25 06:35 Weight: 72.9 kg 08/06/25 06:35 Body Mass Index (BMI) 29.4 08/06/25 06:35 Respiratory Assessment Respiratory Assessment - machine setup operator: Respiratory Tract Infection Hx - machine setup operator Hx Respiratory Tract Infection No 08/03/25 13:59 STOP Sleep Apnea STOP Sleep Apnea - machine setup operator: STOP Sleep Apnea - machine setup operator Hx Hypertension Yes: NO MEDS 08/03/25 13:59 Hx Sleep Apnea No 08/03/25 13:59 CPAP No 11/28/13 15:07 BIPAP No 11/28/13 15:07 Do you snore loudly (louder No 08/03/25 13:59 than talking or can be heard Do you often feel tired/ No 08/03/25 13:59 fatigued/ sleepy during daytime? Has anyone observed you stop No 08/03/25 13:59 breathing during sleep? STOP Results Negative 08/03/25 13:59 QUESTION #5 FULL TEXT : Do you snore loudly (louder than talking or can be heard through closed doors)? 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 Specify any problems Hx of Preganancy in last 3 No 08/03/25 13:59 Months Nurse Filling Out Transfusion MGRIFFITH 08/03/25 13:59 & Questions: Date: 08/03/25 08/03/25 13:59 Time: 14:01 08/03/25 13:59 Patient unable to answer at this time (ie. confused, unrespo /Reproduction History /Reproductive History - machine setup operator: /Reproductive Hx- machine setup operator Hx Now No 08/03/25 13:59 Gestational Age (in weeks): EDC: Hx Hx Para Hx Section SAB No 08/03/25 13:59 Active Medications Active Medications: Current Medications Generic Name Dose Route Start Last Admin Trade Name Charles PRN Reason Stop Dose Admin Lactated Ringer's 1,000 mls @ 15 mls/hr 08/06/25 06:30 08/06/25 06:44 IV 15 mls/hr .Q48H SOPHIE Administration PFSH Medical History Wears glasses Post-menopausal Thyroid disease Back pain Dietary restriction Gastric reflux Leg cramps Former smoker History of stress test Hepatic fibrosis Transaminitis Vertigo Muscle cramps Preventative health care Elevated liver enzymes Graves disease Home Medications ?Medication ?Instructions ?Recorded ?Last Taken ?Type cetirizine 10 mg capsule (Zyrtec) 10 mg PO QDAY Unknown History omeprazole 20 mg delayed 20 mg PO DAILY 04/17/20 Unkn own History release,disintegrating tablet cholecalciferol (vitamin D3) 50 50 mcg PO DAILY Unknown History mcg (2,000 unit) capsule multivitamin 1 tab PO DAILY 05/06/20 Unkn own History clobetasol 0.05 % topical ointment 1 applic topical QH S #60 grams 12/03/23 Unknown Rx conjugated estrogens 0.45 1 tab PO DAILY #90 tabs 10/13 05/05 Unknown Rx mg-bazedoxifene 20 mg tablet (Duavee) Held on 08/03/25. Instructions: Ordered calcium 250 mg (as 2 tab PO HS 03/25/25 Unknown History citrate)-vitamin D3 5 mcg (200 unit) tablet (Citracal Regular) levothyroxine 88 mcg tablet 88 mcg PO DAILY 03/25/25 0 08/06/25 History covid vaccine #1 ea 07/31/25 Unknown Rx famotidine 20 mg tablet (Pepcid) 20 mg PO BID #180 tab s 07/31/25 Unknown Rx hepatitis B virus vacc.rec(PF) 5 1 ml subcut ONCE #5 m L 07/31/25 Unknown Rx mcg/0.5 mL intramuscular susp Allergy/AdvReac Type Severity Reaction Status Date / Time Environmental Allergies: Allergy Mild SNEEZE, Verified 08/06/25 06:33 Uncoded ITCHY EYES, RUNNY NOSE Family History Father Heart disease Mother No problems noted. 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 08/06/25713 <Electronically signed by Doug ngo MD> Date _ Doug José MD Cosigner Signature: Date CC: ~ Signed [facility] Work Phone: Consult note Author Devante Belcher [facility] Note Date/Time August 06, 2025 8:04am [facility] Medical Records Department [address] [place] [address] Anesthesia Postop Eval I 08/06/25802 MR#: [id number] Acct: [id number] Name: LANCE ANGELES Rep #:[id number] : 1965 60 From: Devante Belcher PCP: Dr. Erma Quiros MD [place] [facility] [place] C Location: [place] [address] Anesthesia: Postop Eval I Current Vital Signs Temperature: 97.7 F Pulse Rate: 67 Blood Pressure: 94/58 Respiratory Rate: 16 Pulse Ox: 97 Oxygen Delivery Method: Room Air Assessment Airway patent: Yes Spontaneous unlabored respirations: Yes Mental status: Asleep nausea: No Vomiting: No Anesthesia Complication: No Fluid Hydration Crystalloid volume administer (ml): 400 Total IV fluid infused: 400 Progress Note Anesthesia document: Postop Eval 1 completed: Yes 08/06/25 0804 <Electronically signed by Devante Belcher > Date _ Devante Everett Signature: Date CC: ~ Signed [facility] Work Phone: Consult note Author Jerrica [facility] Note Date/Time August 06, 2025 10:45am [facility] Medical Records Department [address] [place] [address] Anesthesia Postop Eval II 08/06/25 1045 MR#: [id number] Acct: [id number] Name: LANCE ANGEELS Rep #:[id number] : 1965 60 From: Jerrica ALEXANDRA PCP: Dr. Erma Quiros MD Status[place] [facility] [place]: C Location: EN Anesthesia Postop Eval I Sum Postop Eval Completion status Anesthesia document: Postop Eval 1 completed: Yes Anesthesia Postop Eval I Summary Anesthesia Postop Eval I Summary: Anesthesia Postop Eval I: Assessment Summary Airway patent Yes 08/06/25 08:04 [email or web address] Spontaneous unlabored Yes 08/06/25 08:04 [email or web address] respirations Mental status Asleep 08/06/25 08:04 [email or web address] nausea No 08/06/25 08:04 [email or web address] Vomiting No 08/06/25 08:04 [email or web address] Anesthesia Postop Eval I: Fluid Summary Crystalloid volume administer 400 08/06/25 08:04 [email or web address] (ml) Colloids volume administered ( ml) Blood Product volume administered (ml) Total IV fluid infused 400 08/06/25 08:04 [email or web address] Anesthesia Postop Eval I: Summary Notes Anesthesia Complication No 08/06/25 08:04 [email or web address] Anesthesia Complication Comment: Post-operative progress note Anesthesia: Postop Eval II Evaluation Mental status: Awake and Calm Pain Level: 0 nausea: No Vomiting: No Complications Anesthesia Complication: No 08/06/25 1045 <Electronically signed by Jerrica Silvestre CRNA> Date _ Jerrica Silvestre READING RECOVERY TEACHER Cosigner Signature: Date CC: ~ Signed [facility] Work Phone: Evaluation noteNo assessment information available [facility] Work Phone: Evaluation note* Diagnosis Onset Date Resolution Status Encounter for routine gynecological examination noneactive [facility] Work Phone: Evaluation note* Diagnosis Onset Date Resolution Status Encounter for routine gynecological examination noneactive Preventative health care acu te History of Graves' disease c hronic [facility] Work Phone: Reason for referral (narrative)No reason for referral information 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 Reason for Visit Encounter [...] Hepatic Fibrosis June 16, 2025 12: 48pm Chief Complaint Admit Date TRANSAMINITIS April 28, 2025 8:35 am Hepatic Fibrosis June 16, 2025 12: 48pm SCREENING August 10, 2025 8:20am Reason for Visit Admit Date GERD (gastroesophageal reflux disease) A ug2024 12:48pm Hepatic cyst June 16, 2025 12: 48pm Hepatic fibrosis June 16, 2025 12: 48pm Elevated liver enzymes June 16, 2025 12:48pm GERD (gastroesophageal reflux disease) S eptember 2024 6:13am Advance Directives No Advanced Directives Records Found Advance Directive Response Recorded Date/ Time Advance Directives No November 28, 2013 4:07pm Living Will Yes April 17, 2020 1 0:48pm Power of Fusing Machine Operator Yes April 17, 2020 10:48pm Advance Directive Response Recorded Date/ Time Advance Directives No November 28, 2013 3:07pm Living Will Yes April 17, 2020 9 :48pm Power of Fusing Machine Operator Yes April 17, 2020 9:48pm Advance Directive Response Recorded Date/ Time Advance Directives No November 28, 2013 4:07pm Advance Directive Response Recorded Date/ Time Do you have a [facility] Power of Fusing Machine Operator? Yes August 03, 2025 1:59pm Advance Directives No November 28, 2013 4:07pm [...] Segura MD Primary Care Provider Active Dr. Derek [...] Status: Active Member Role/Relationship Status Dates Dr. Eram Quiros MD Primary Care Provider Active Team [...] June 16, 2025 End: June 16, 2025 Team Status: Active Member Role/Relationship Status Dates Dr. Erma Quiros MD Primary care physician Activ e Team Status: Active Member Role/Relationship Status Dates Dr. Erma Quiros MD Primary care physician Activ e Start: April 28, 2025 Dr. Erma Quiros MD Attending physician Active Start: April 28, 2025 Dr. Erma Quiros MD Referring Provider Active Start: April 28, 2025 Team Status: Inactive Member Role/Relationship Status Dates Dr. Erma Quiros MD Primary care physician Activ e Start: June 16, 2025 End: June 16, 2025 Dr. Erma Quiros MD Referring Provider Active Start: June 16, 2025 End: June 16, 2025 Dr. Ben Traore MD Attending physician Active Start: June 16, 2025 End: June 16, 2025 Team Status: Inactive Member Role/Relationship Status Dates Dr. Erma Quiros MD Primary care physician Activ e Start: August 06, 2025 End: August 06, 2025 Dr. Erma Quiros MD Referring Provider Active Start: August 06, 2025 End: August 06, 2025 Dr. Adrian Lopez DO Attending physician Active Start: August 06, 2025 End: August 06, 2025 Team Status: Active Member Role/Relationship Status Dates Dr. Erma Quiros MD Primary care physician Activ e Start: August 06, 2025 Dr. Erma Quiros MD Referring Provider Active Start: August 06, 2025 Dr. Adrian Lopez DO Attending physician Active Start: August 06, 2025 Dr. Adrian Lopez DO Nurse Practitioner Active Start: August 06, 2025 Team Status: Active Member Role/Relationship Status Dates Dr. Erma Quiros MD Primary care physician Activ e Start: August 10, 2025 Self Referred Attending physician Active Start: August 10, 2025 Self Referred Referring Provider Active Start: Kim [email or web address] 2024 INFORMATION SOURCE (unrecogn ized section and content) DATE CREATED AUTHOR 09/22/2025 [facility] FOR RECORDS PERTAINING TO PATIENTS WHO [...] BE BASED ON THE PRIMARY CLINICAL RECORDS. [employer] provides no warranty or guarantee of the accuracy or completeness of information in this document.
--- NOTE | 2025-10-27 18:59 | CA.SCORE ---
Calcium Scoring Date of Study:: 10/23/25 Indications Indications: Family history Coronary Calcium Scoring: High-resolution Computed Tomographic imaging of the chest was performed on [10/23/25 ], with particular attention paid to the coronary arteries. Images from the examination were analyzed for the presence and extent of coronary artery calcification , using coronary calcium quantification software. The patient tolerated the procedure well and there were no complications. The results of the coronary calcification analysis are provided below. Findings Coronary Artery Left Main (LM): 0 Left Anterior Descending (LAD): 70.5 Left Circumflex (LCX): 0 Right Coronary Artery (RCA): 4.77 Total Agatston Score: 75.27 Percentile Rankin-90 Calcium Scoring Interpretation: Different methods to categorize the overall amount of coronary plaque. Overall amount CAC SIS Visual of coronary plaque P1 Mild -100 <2 1-2 vessels with mild amount of plaque P2 Moderate 101-300 3-4 1-2 vessels with moderate amount, 3 vessels with mild amount of plaque P3 Severe 301-999 5-7 3 vessels with moderate amount, 1 vessel with severe amount of plaque P4 Extensive >1000 >8 2-3 vessels with severe amount of plaque Calcium Score: Mild: 1-2 vessels w/mild amount of plaque Conclusion: Mild 1-2 vessel plaque disease noted
== END | disposition home or self-care (01) ==
LOC: CT 08:05
PROVIDERS: PCP Internal Medicine; Referring Provider Internal Medicine; Visit Provider Internal Medicine
DX: I10 Essential (primary) hypertension (principal); I25.10 Atherosclerotic heart disease of native coronary artery without angina pectoris; Z82.49 Family history of ischemic heart disease and other diseases of the circulatory system
CPT/HCPCS: 75571; 76380